=== PATIENT | male | born 1955 | race Caucasian/White ===

== ENCOUNTER → 2016-10-31 | Outpatient (CLI) | payer OTHER ==
--- NOTE | 2016-10-31 15:59 | CONS ---
DATE OF CONSULTATION: 10/31/2016 This patient has no primary doctor at this time. He is a 61-year-old gentleman who has been evaluated in the sleep center for his sleep problems. HISTORY OF PRESENT ILLNESS/SLEEP-WAKE EVALUATION: Patient has had sleep problems for many years. He has any difficulties falling asleep, and also he wakes up from sleep and feels sleepy during the day. His usual sleep schedule varies from 9 p.m. to 1 a.m. for falling asleep, and he gets up between 3 a.m. and 6 a.m. No complaints of his bedroom environment. Sometimes he may have pain. No TV in bedroom. He usually sleeps on the side or stomach position. He wakes up from sleep usually once with nocturia and then has difficulty falling asleep again. He has dreams, usually in the second part of the night. No history of sleep paralysis. He has positive history of snoring in the past. At present he sleeps by himself, so no clear information. [place] Sleepiness Scale increased to 10. Past medical history is positive for: 1. Diabetes. 2. Hypertension. 3. Hyperlipidemia. 4. Gout. PAST SURGICAL HISTORY: 1. Surgery for polyps in the nose. 2. Uvulectomy. 3. Tonsillectomy. MEDICATIONS: 1. Metformin. 2. Invokana. 3. Victoza. 4. Glimepiride. 5. ( ) 6. Atenolol. 7. Aspirin. 8. Simvastatin. 9. Allopurinol. SOCIAL HISTORY: Positive for smoking half pack a day for about 20 years; quit in 1993. Alcohol consumption rarely. REVIEW OF SYSTEMS: Difficulties initiating sleep. Awakenings from sleep. Losing weight for last 6 months from about 275 pounds down to 259 pounds. No fevers. No double vision. No recent chest pain. No shortness of breath. No abdominal pain. No bleeding episodes. No blood in urine. No seizure episodes. FAMILY HISTORY: Hypertension, heart problems, hyperlipidemia, asthma, cancer, diabetes, nasal polyps, thyroid problems, anemia. PHYSICAL EXAMINATION: GENERAL: A pleasant 61-year-old gentleman without distress. VITAL SIGNS: BP 127/90, HR 66, RR 16. Height 5 feet 6-1/2 inches. Weight 259. BMI 41.1. Neck 16 inches in circumference. Temperature 98.4. Oxygen saturation at room air 95%. HEENT: PERRLA, EOMI. Evaluation of oropharynx showed tongue protrudes midline; extremely low position of soft palate. Mallampati IV. Restriction of nasal breathing bilaterally. NECK: Supple. No JVD. Thyroid is not palpable. LUNGS: Clear to percussion and to auscultation. Good air exchange. No wheezing or rhonchi. HEART: S1, S2 regular. No murmurs, gallops or rubs. ABDOMEN: Obese. EXTREMITIES: No clubbing or cyanosis. CROSS TIE CUTTER: Awake, alert, and oriented x3. Cranial nerves 2 to 7 intact. There is no fasciculation or atrophy noted. No focal deficits observed. IMPRESSION: 1. Awakenings from sleep, history of snoring in the past. No clear information about snoring at the present time. Extremely low position of soft palate, awakenings from sleep with nocturia, sleepiness during the day. [place] Sleepiness Scale 10. Obstructive sleep apnea/hypopnea syndrome. 2. Difficulties initiating sleep; psychophysiological insomnia. 3. Obesity; body mass index 41.1. 4. Hypertension. 5. Diabetes mellitus. 6. Hyperlipidemia. 7. Gout. 8. Status post tonsillectomy. 9. Status post nasal polypectomy. 10. Status post uvulectomy. PLAN: 1. Polysomnography for evaluation of patient's breathing during sleep. 2. CPAP/BiPAP titration if sleep study confirms obstructive sleep apnea-hypopnea syndrome. 3. Preferable position during sleep on the side. 4. No driving if patient feels any sleepiness. Patient is aware of civil and criminal liability for unsafe driving. 5. I will see patient for follow-up visit to explain results of the testing and following plan. 6. I discussed with the patient psychological techniques for treatment of insomnia, including stimulus control, paradoxical intention, worry time, no watching clock during the night. I recommended for him additional literature about insomnia. Sincerely, Robert St MD, PhD, FAASM. Diplomat of [employer], Sleep Medicine Board by [employer] Taxi Proprietor of [facility] [place]
== END | disposition home or self-care (01) ==
LOC: SLEEP 13:13
PROVIDERS: ATTEND Internal Medicine
DX: G47.33 Obstructive sleep apnea (adult) (pediatric) (principal); F51.04 Psychophysiologic insomnia; E66.9 Obesity, unspecified; Z68.41 Body mass index [BMI] 40.0-44.9, adult; I10 Essential (primary) hypertension; E11.9 Type 2 diabetes mellitus without complications; E78.5 Hyperlipidemia, unspecified; M10.9 Gout, unspecified; Z98.890 Other specified postprocedural states; Z87.891 Personal history of nicotine dependence
CPT/HCPCS: 99211

== ENCOUNTER → 2017-03-27 | Outpatient (CLI) | payer OTHER ==
--- NOTE | 2017-03-27 14:35 | PN ---
DATE OF SERVICE: 03/27/2017 A 61-year-old gentleman who has been followed in the Sleep Center for treatment of obstructive sleep apnea-hypopnea syndrome. Recently patient had diagnostic sleep test and titration, and I discussed the results of his sleep studies with patient in detail. He was started on treatment with CPAP and he brought his CPAP unit with him today. He is able to use CPAP equipment but about half of the days because he does not feel comfortable with his full-face mas. There is a leak from the mask to the eyes area and patient does not like it. I checked patient's CPAP unit. CPAP pressure is 10 cm of water. Usage for more than 4 hours it nights. Apnea-hypopnea index reading is 8. Leak is 37 L/min. [place] sleepiness scale 3. MEDICATIONS: Metformin, Invokana, Victoza, glimepiride, atenolol, simvastatin, allopurinol. During physical exam, patient in no distress. BP 119/71, HR 60, RR 16. Weight 257.8. Temp 98.2. Oxygen saturation at room air 97%. OROPHARYNX: Moderately low position of soft palate. ABDOMEN: Obese. HEENT: IRAM, EOMI, Evaluation of the oropharynx showed tongue protrudes midline. NECK: Supple. No JVD, Thyroid is not palpable. LUNGS: Clear to percussion and to auscultation. Good air exchange. No wheezing or rhonchi. HEART: S1, S2 regular. No murmurs, gallops, or rubs. LEAD SIMULATION MODELING ENGINEER: Awake, alert, and oriented x3. Cranial nerves 2 to 7 intact. There is no fasciculation or atrophy noted. No focal deficits observed. IMPRESSION: 1. Moderate obstructive sleep apnea-hypopnea syndrome. Apnea-hypopnea index 21.4 with oxygen desaturation to 69%, improved with CPAP at 10 cm of water. Patient has significant leak from his full-face mask. 2. Hypertension. 3. Diabetes mellitus. 4. Hyperlipidemia. 5. Gout. 6. Status post uvulectomy and polypectomy from the nose in the past. 7. Patient continued to have restriction of the nasal breathing at the present time, which also creates problems with the usage of the CPAP. PLAN: 1. I increased pressure in his CPAP unit up to 11 cm of water. 2. We will try to fit patient with [place] full-face mask which goes to the nose and subsequently cannot leak to the eye area. 3. Losing weight. 4. Continued to use CPAP equipment every night for the whole night. 5. No driving if feeling any sleepiness. Thank you very much for allowing me to participate in the management of your patient. Sincerely, Robert St MD, PhD, FAASM Diplomat of [place] [employer], Sleep Medicine Board by [place] Lighting Adviser of [facility] [place]
== END ==
LOC: SLEEP 13:15
PROVIDERS: ATTEND Internal Medicine
DX: G47.33 Obstructive sleep apnea (adult) (pediatric) (principal); E78.5 Hyperlipidemia, unspecified; M10.9 Gout, unspecified; E11.9 Type 2 diabetes mellitus without complications; I10 Essential (primary) hypertension; Z98.890 Other specified postprocedural states; Z79.899 Other long term (current) drug therapy

== ENCOUNTER 2019-03-15 06:24 | Day surgery (SDC) | payer OTHER ==
[2019-03-10 14:21] VITALS: BMI 43.0
[~2019-03-15 06:24] MED LIST: LACTATED RINGERS 1,000 ML IV SCH
[2019-03-15] MEDS ORDERED: SODIUM CHLORIDE 0.9% 1,000 ML IV SCH (06:25)
[2019-03-15 07:09] LABS: Glucose,Whole Blood 125 mg/dL (75-99)
[2019-03-15 07:12] VITALS: TEMP 99
[2019-03-15] MEDS ORDERED: PROPOFOL 10 MG/ML 20 ML VIAL IV ONE (07:25)
[2019-03-15] MEDS ORDERED: SODIUM CHLORIDE 0.9% 500 ML 500 ML IV ONE (07:32)
[2019-03-15] MEDS ORDERED: BENZOCAINE SPRAY 1 CAN MUCOUS MEM ONE (07:40)
[2019-03-15 08:41] VITALS: RESP 18
[2019-03-15 08:54] VITALS: PULSE 62
--- NOTE | 2019-03-15 09:19 | ECHOT ---
TRANSESOPHAGEAL ECHOCARDIOGRAM DATE OF SERVICE: March 15, 2019 PERFORMING PHYSICIAN: Cosme Khalil MD, nuisance wildlife control operator. PROCEDURE PERFORMED: Transesophageal echocardiogram. INDICATION: This is a 63-year-old gentleman with history of paroxysmal atrial fibrillation, who was brought today to undergo cardioversion. COMPLICATION: None. LEVEL OF SEDATION: Deep sedation was performed with propofol with WASTE COTTON CLEANER and anesthesiologist in the room. PROCEDURE DESCRIPTION: After obtaining an informed consent, explaining the procedure, benefits, risks, complications and alternatives, the patient was brought to the transesophageal echocardiogram suite. A pulse oximetry and heart rate monitors were attached to the patient prior to the procedure. The patient's throat was sprayed using lidocaine locally. Following that, the patient was turned into left lateral position. A bite guard was placed and the patient was then sedated with the above doses of Versed and fentanyl in divided doses. Following that, the transesophageal echocardiogram probe was advanced through the bite guard into the mid esophagus where 2-D echocardiogram images as well as color Doppler images of various cardiac structures were obtained. We evaluated the interatrial septum using 2-D echocardiogram, color Doppler, and contrast study. The procedure was completed. There were no complications. FINDINGS: The left ventricular dimension appeared to be within normal limits. The left ventricular systolic function is mildly impaired with EF of 45%. The left atrium appeared to be mildly dilated. Left atrial appendage appeared to be free from any thrombus. The interatrial septum appeared to be intact without any evidence of shunt. The aortic valve is trileaflet valve without stenosis or regurgitation. The mitral valve seems to be mildly thickened with mild to moderate MR. There was mild to moderate tricuspid regurgitation seen. The aortic root appeared to be within normal limits. CONCLUSION: 1. Intact interatrial septum without any evidence of shunt. 2. Normal left atrial appendage without any evidence of thrombus. 3. No evidence of any intracardiac thrombus seen. 4. Mildly impaired left ventricular function with ejection fraction of 45%. 5. Mild left atrial dilatation. 6. Normal right ventricular dimension and systolic function. 7. Trileaflet aortic valve without stenosis or regurgitation. 8. Thickened mitral valve leaflets with mild to moderate mitral regurgitation. 9. Mild to moderate tricuspid regurgitation. 10.Normal aortic root dimension. 11.No evidence of pericardial effusion. MMODL / IJN: [id number] /
--- NOTE | 2019-03-15 09:25 | CE ---
CARDIAC ELECTROPHYSIOLOGY REPORT DATE OF SERVICE: March 15, 2019 PERFORMING PHYSICIAN: Cosme Khalil MD. PROCEDURE PERFORMED: Cardioversion. INDICATION: Atrial fibrillation. PROCEDURE DESCRIPTION: After transesophageal echocardiogram was performed, and left atrial appendage intracardiac thrombus were ruled out we pursued cardioversion with the patient. Converted from atrial fibrillation to normal sinus mechanism using 200 joules on first attempt. CONCLUSION: Successful cardioversion of atrial fibrillation to normal sinus mechanism using 200 joules on first attempt. MMODL / IJN: [id number] /
[2019-03-15 09:28] VITALS: BP 142/82
== END 2019-03-15 09:35 | disposition home or self-care (01) ==
LOC: CATHCVL 06:24
PROVIDERS: ATTEND Internal Medicine Interventional Cardiology
DX: I48.1 Persistent atrial fibrillation (principal); I08.1 Rheumatic disorders of both mitral and tricuspid valves; I12.9 Hypertensive chronic kidney disease with stage 1 through stage 4 chronic kidney disease, or unspecified chronic kidney disease; E11.22 Type 2 diabetes mellitus with diabetic chronic kidney disease; N18.9 Chronic kidney disease, unspecified; I25.10 Atherosclerotic heart disease of native coronary artery without angina pectoris; Z95.5 Presence of coronary angioplasty implant and graft; E78.5 Hyperlipidemia, unspecified; Z82.49 Family history of ischemic heart disease and other diseases of the circulatory system; F17.210 Nicotine dependence, cigarettes, uncomplicated; Z79.84 Long term (current) use of oral hypoglycemic drugs; Z79.82 Long term (current) use of aspirin; Z79.899 Other long term (current) drug therapy; Z91.041 Radiographic dye allergy status
CPT/HCPCS: 93312; 93320; 93325; 92960; J2704

== ENCOUNTER → 2019-07-12 | Outpatient (CLI) | payer OTHER ==
--- NOTE | 2019-07-12 11:26 | XR ---
EXAMINATION TYPE: XR femur LT, XR Hip Complete LT DATE OF EXAM: 07/12/2019 CLINICAL HISTORY: Left hip pain for 2 years with no known injury TECHNIQUE: AP and frogleg views of the left hip are obtained. 2 views of the left femur were also ob tained. COMPARISON: None. FINDINGS: There is no acute fracture/dislocation evident in the left hip. The joint space in the le ft hip appears aligned. Chondrocalcinosis is seen of the medial and lateral compartment of the left k nee. There is mild medial compartment joint space narrowing and very small tricompartmental osteophyt es. There is mild acetabular roof sclerosis and small marginal osteophytes of the left hip. The overl abhi soft tissue appears unremarkable. IMPRESSION: There is no acute fracture or dislocation in the left hip. Mild tricompartmental arthros is of the left knee and left femoral acetabular arthropathy. Additional early chondrocalcinosis is se en of the medial lateral left knee which can be seen in multiple arthropathies.
== END | disposition home or self-care (01) ==
LOC: LABWHC1 10:28
PROVIDERS: ATTEND Family Medicine
DX: M16.12 Unilateral primary osteoarthritis, left hip (principal); M17.12 Unilateral primary osteoarthritis, left knee; M11.262 Other chondrocalcinosis, left knee
CPT/HCPCS: 73502

== ENCOUNTER 2019-07-26 10:15 | Inpatient (IN) | payer OTHER ==
[2019-07-26 11:59] LABS: Glucose,Whole Blood 143 mg/dL (75-99)
[2019-07-26] MEDS ORDERED: ALPRAZolam 0.25 MG TAB PO PRN (12:37)
[2019-07-26] MEDS ORDERED: ACETAMINOPHEN TAB 325 MG TAB PO PRN (12:37)
[2019-07-26 12:43] LABS: Basophils # (A) 0.1 k/uL (0-0.2); Basophils % (A) 1 %; Eosinophils # (A) 0.3 k/uL (0-0.7); Eosinophils % (A) 5 %; HCT 44.2 % (39.0-53.0); HGB 14.1 gm/dL (13.0-17.5); Lymphocytes # (A) 1.8 k/uL (1.0-4.8); Lymphocytes % (A) 28 %; MCH 29.4 pg (25.0-35.0); MCHC 31.9 g/dL (31.0-37.0); MCV 92.1 fL (80.0-100.0); Mean Platelet Volume 7.1; Monocytes # (A) 0.3 k/uL (0-1.0); Monocytes % (A) 5 %; Neutrophils # (A) 3.7 k/uL (1.3-7.7); Neutrophils % (A) 58 %; Platelet Count 155 k/uL (150-450); RBC 4.79 m/uL (4.30-5.90); RDW 15.3 % (11.5-15.5); WBC 6.4 k/uL (3.8-10.6)
[2019-07-26 12:52] LABS: Calcium 10.2 mg/dL (8.4-10.2); Potassium 4.1 mmol/L (3.5-5.1)
[2019-07-26 13:05] VITALS: BMI 40.1
[2019-07-26] MEDS: predniSONE 20 MG TAB PO SCH ×2 (13:11→20:01)
[2019-07-26] MEDS: MAGNESIUM OXIDE 400 MG TAB PO SCH (13:11)
[2019-07-26] MEDS ORDERED: MAGNESIUM SULFATE-D5W PMX 1 GM in DEXTROSE/WATER 1 100ML.BAG IVPB PRN (16:30)
--- NOTE | 2019-07-26 16:51 | P.HPCAR ---
History of Present Illness This is Tori Kent PA-C dictating an H&P on this patient The patient was interviewed and examined by me as well as by Dr. Urias Case discussed with Dr. Urias and he agrees with the plan of care IMPRESSION / ASSESSMENT: Persistent symptomatic atrial fibrillation, failed to maintain sinus rhythm after and electrical cardioversion CAD status post stenting Diabetes Hypertension Recent echo showing mildly reduced LV systolic function PLAN: Detailed discussion with the patient regarding his treatment plan Discussion with patient regarding side effects and medication interactions with dofetilide Discussed all of his [id number] medications as well as his when necessary medications Explained to him that it is dangerous for him to take trazadone with dofetilide and he is not to take it anymore Will initiate dofetilide 250 g at 6 PM with an EKG to follow at 9 PM Proceed with cryoablation tomorrow morning Continue his daily BMPs and magnesium He is appropriately anticoagulated with Xarelto, continue anticoagulation HPI Patient is a 64-year-old male with a past medical history of persistent symptomatic atrial fibrillation, CAD status post stenting, diabetes, and hypertension who presents for evaluation and management of his atrial fibrillation. Patient has had atrial fibrillation with symptoms of fatigue and palpitations for over a year. He remains symptomatic despite good rate control. He has undergone electrical cardioversion in the past and his symptoms resolved and energy improved but then he went back into A. fib after a few days. Recent echocardiogram shows mildly reduced LV systolic function. Patient seen and examined sitting at the side of the bed. Denies any chest pain, shortness of breath, orthopnea or PND. No dizziness lightheadedness or syncope. No recent infections fevers or chills. ROS: No fevers, chills or rigors, no cough, phlegm or expectoration, no nausea, vomiting or diarrhea, no hematuria, dysuria, no musculoskeletal complaints, no strokes or seizures, no skin lesions. EXAMINATION: Temperature 98.4F, pulse 81, respirations 16, blood pressure 137/84, oxygen saturation 98% on room air Patient seen and examined sitting comfortably in bed, in no acute distress Lungs are clear to auscultation bilaterally, no wheezing rhonchi or crackles Heart is irregular, no murmurs noted No elevated JVD No lower extremity edema Abdomen soft REVIEW OF LABS, ECG & MEDICAL DATA EKG today shows atrial fibrillation with controlled ventricular response, absolute QT 360-380 ms WBC 6.4, hemoglobin 14.1, platelets 155, potassium 4.1, BUN 26, creatinine 1.14, magnesium 2.0 TSH within normal limits at 2.29 Physical Exam Vitals: Vital Signs Temp Pulse Resp BP Pulse Ox 07/26/19 15:50 98.4 F 81 16 137/84 98 07/26/19 10:20 98.4 F 90 16 137/83 97 Intake and Output 07/26/19 07/26/19 07/26/19 06:59 14:59 22:59 Other: Weight 112.7 kg Past Medical History Past Medical History: Atrial Fibrillation, Coronary Artery Disease (CAD), Chest Pain / Angina, Diabetes Mellitus, Hyperlipidemia, Renal Disease, Skin Disorder Additional Past Medical History / Comment(s): occular migraines, gout, eczema, dx with stage III kidney failure, tinnitus, fungal infection in groin area, pt refusing pictures History of Any Multi-Drug Resistant Organisms: None Reported Past Surgical History: Heart Catheterization With Stent, Orthopedic Surgery, Tonsillectomy Additional Past Surgical History / Comment(s): two cardiac stents, rt foot bunionectomy, rt knee arthroscopy, surgery to remove uvula Past Anesthesia/Blood Transfusion Reactions: Motion Sickness Date of Last Stent Placement:: 2005 Past Psychological History: Anxiety Smoking Status: Former smoker Past Alcohol Use History: Occasional Additional Past Alcohol Use History / Comment(s): quit smoking 1993, started 1973 Past Drug Use History: None Reported - Past Family History Mother Family Medical History: Unable to Obtain Physical Examination Vital Signs Temp Pulse Resp BP Pulse Ox 07/26/19 15:50 98.4 F 81 16 137/84 98 07/26/19 10:20 98.4 F 90 16 137/83 97 Intake and Output 07/26/19 07/26/19 07/26/19 06:59 14:59 22:59 Other: Weight 112.7 kg Results 07/26/19 12:03 07/26/19 12:03 CBC 07/26/19 Range/Units 12:03 WBC 6.4 (3.8-10.6) k/uL RBC 4.79 (4.30-5.90) m/uL Hgb 14.1 (13.0-17.5) gm/dL Hct 44.2 (39.0-53.0) % Plt Count 155 (150-450) k/uL Comprehensive Metabolic Panel 07/26/19 Range/Units 12:03 Sodium 138 (137-145) mmol/L Potassium 4.1 (3.5-5.1) mmol/L Chloride 100 (98-107) mmol/L Carbon Dioxide 26 (22-30) mmol/L BUN 26 H (9-20) mg/dL Creatinine 1.14 (0.66-1.25) mg/dL Glucose 134 H (74-99) mg/dL Calcium 10.2 (8.4-10.2) mg/dL Current Medications Generic Name Dose Route Start Last Admin Trade Name Freq PRN Reason Stop Dose Admin Acetaminophen 650 mg 07/26/19 12:37 Tylenol Tab PO Q6HR PRN Fever and/ or Mild Pain Allopurinol 300 mg 07/27/19 09:00 Zyloprim PO DAILY SEBASTIAN Alprazolam 0.25 mg 07/26/19 12:37 Xanax PO BID PRN Anxiety Atenolol 50 mg 07/27/19 09:00 Tenormin PO DAILY SEBASTIAN Atorvastatin Calcium 20 mg 07/26/19 21:00 Lipitor PO HS SEBASTIAN Diphenhydramine HCl 25 mg 07/26/19 21:00 Benadryl PO HS SEBASTIAN Diphenhydramine HCl 25 mg 07/27/19 12:00 Benadryl IVP 07/27/19 12:01 ONCE ONE Dofetilide 250 mcg 07/26/19 18:00 Tikosyn PO 07/26/19 18:01 ONCE ONE Glimepiride 2 mg 07/27/19 07:30 Amaryl PO AC-BRKFST SEBASTIAN Sodium Chloride 1,000 mls @ 20 mls/hr 07/26/19 11:45 Saline 0.9% IV .Q24H SEBASTIAN Magnesium Sulfate/Dextrose 1 100 mls @ 100 mls/hr 07/26/19 16:30 gm/ IV Solution IVPB 07/27/19 16:31 Q1H PRN See comments Magnesium Oxide 400 mg 07/26/19 11:00 07/26/19 13:11 Mag-Ox PO 400 mg DAILY SEBASTIAN Administration Methylprednisolone Sodium Succinate 125 mg 07/27/19 12:00 Solu-Medrol IV 07/27/19 12:01 ONCE ONE Nystatin 1 applic 07/26/19 21:00 Mycostatin Oint TOPICAL BID [facility] Prednisone 20 mg 07/26/19 11:00 07/26/19 13:11 PO 20 mg BID [facility] Administration Rivaroxaban 20 mg 07/27/19 07:30 Xarelto PO W/BRKFST SE[facility]IAN Tamsulosin HCl 0.4 mg 07/27/19 08:30 Flomax PO PC-BRKFST [facility] Terbinafine HCl 1 applic 07/26/19 21:00 Lamisil Cream TOPICAL BID [facility] Triamcinolone Acetonide 1 applic 07/26/19 21:00 Kenalog TOPICAL BID [facility] Valsartan 160 mg 07/27/19 09:00 Diovan PO DAILY [facility] Zolpidem Tartrate 5 mg 07/26/19 12:36 Ambien PO HS PRN Insomnia Intake and Output 07/26/19 07/26/19 07/26/19 06:59 14:59 22:59 Other: Weight 112.7 kg Patient Weight 07/27/19 06:59 Weight 112.7 kg 07/26/19 12:03 07/26/19 12:03
[2019-07-26 17:04] LABS: Glucose,Whole Blood 144 mg/dL (75-99)
[2019-07-26] MEDS: SODIUM CHLORIDE 0.9% 1,000 ML IV SCH (17:58)
[2019-07-26] MEDS ORDERED: DOFETILIDE 250 MCG CAP PO ONE (18:00)
[2019-07-26 19:57] LABS: Glucose,Whole Blood 148 mg/dL (75-99)
[2019-07-26] MEDS: TERBINAFINE 1% CREAM 15 GM TUBE TOPICAL SCH (19:57)
[2019-07-26] MEDS: TRIAMCINOLONE 0.1% CREAM 80 GM TUBE TOPICAL SCH (19:57)
[2019-07-26] MEDS: ATORVASTATIN 20 MG TAB PO SCH (19:57)
[2019-07-26] MEDS: NYSTATIN 100,000 UNIT/GM OINT 30 GM TUBE TOPICAL SCH (19:57)
[2019-07-26] MEDS ORDERED: APIXABAN 5 MG TAB PO SCH (21:00)
[2019-07-26] MEDS: diphenhydrAMINE 25 MG CAP PO SCH (22:26)
[2019-07-27 05:59] LABS: Glucose,Whole Blood 136 mg/dL (75-99)
[2019-07-27] MEDS: RIVAROXABAN 20 MG TAB PO SCH (06:00)
[2019-07-27] MEDS ORDERED: DOFETILIDE 250 MCG CAP PO ONE (06:00)
[2019-07-27] MEDS: ATENOLOL 50 MG TAB PO SCH (08:54)
[2019-07-27] MEDS: VALSARTAN 160 MG TAB PO SCH (08:54)
[2019-07-27] MEDS: NYSTATIN 100,000 UNIT/GM OINT 30 GM TUBE TOPICAL SCH ×2 (08:54→21:10)
[2019-07-27] MEDS: predniSONE 20 MG TAB PO SCH ×2 (08:54→21:04)
[2019-07-27] MEDS: MAGNESIUM OXIDE 400 MG TAB PO SCH ×2 (08:54→21:05)
[2019-07-27] MEDS: TRIAMCINOLONE 0.1% CREAM 80 GM TUBE TOPICAL SCH ×2 (08:54→21:03)
[2019-07-27] MEDS: TERBINAFINE 1% CREAM 15 GM TUBE TOPICAL SCH ×2 (08:54→21:03)
[2019-07-27] MEDS: ALLOPURINOL 300 MG TAB PO SCH (08:54)
[2019-07-27] MEDS: TAMSULOSIN 0.4 MG CAP.ER.24H PO SCH (08:54)
[2019-07-27 09:11] LABS: African American GFR (CKD) >90 (>60 ml/min/1.73 sqM); Anion Gap 11 mmol/L; Blood Urea Nitrogen 19 mg/dL (9-20); Calcium 10.1 mg/dL (8.4-10.2); Carbon Dioxide 27 mmol/L (22-30); Chloride 101 mmol/L (98-107); Glucose 111 mg/dL (74-99); Magnesium 1.9 mg/dL (1.6-2.3); Potassium 4.1 mmol/L (3.5-5.1); Sodium 139 mmol/L (137-145)
[2019-07-27] MEDS: SODIUM CHLORIDE 0.9% 1,000 ML IV SCH (11:24)
[2019-07-27] MEDS ORDERED: diphenhydrAMINE 50 MG/ML 1 ML VIAL IVP ONE (12:00)
[2019-07-27] MEDS ORDERED: methylPREDNISolone SOD SUCCI 125 MG/2 ML VIAL IV ONE (12:00)
--- NOTE | 2019-07-27 12:35 | P.PN ---
Subjective This is Tori Kent PA-C dictating a progress note on this patient The patient was interviewed and examined by me as well as by Dr. Urias Case discussed with Dr. Urias and he agrees with the plan of care IMPRESSION / ASSESSMENT: Symptomatic persistent atrial fibrillation, currently in sinus rhythm on dofetilide 250 g twice a day CAD status post stenting Diabetes Hypertension PLAN: He is scheduled for an A. fib ablation today Increase magnesium to 400 mg twice daily Continue dofetilide 250 g twice a day Continue to monitor EKGs for prolonged QT Continue to monitor telemetry Continue to monitor daily BMPs and magnesium HPI/interval history Patient is a 64-year-old male with a past medical history significant for persistent symptomatic persistent atrial fibrillation, CAD status post stenting, diabetes and hypertension who presented for management of atrial fibrillation. Last night we started him on dofetilide 250 g and he converted to sinus rhythm. Subsequent EKG showed sinus mechanism with absolute QT around 400 seconds. This morning he received a second dose of dofetilide 250 g. Follow-up EKG showed sinus mechanism, rate 62, Absolute QT 440 ms. Patient seen and examined sitting up in his chair. Complains that he did not sleep well last night. Has not noticed much of a difference in his symptoms now that he is in sinus rhythm however he has not exerted himself. Denies palpitations, chest pain or sh ortness of breath. EXAMINATION Temperature 98.2F, pulse 62, respirations 16, blood pressure 145/90, oxygen saturation 99% on room air Patient seen and examined sitting in his chair, no acute distress Lungs are clear to auscultation bilaterally Heart is regular, normal S1-S2, no murmurs noted No elevated JVD No lower extremity edema REVIEW OF LABS, ECG Potassium 4.1, BUN 19, creatinine 0.87, magnesium 1.9 TSH within normal limits at 2.29 Objective - Vital Signs Vital signs: Vital Signs Temp 98.2 F 07/27/19 08:00 Pulse 62 07/27/19 08:00 Resp 16 07/27/19 08:00 BP 145/90 07/27/19 08:00 Pulse Ox 99 07/27/19 08:00 Intake & Output 07/26/19 07/27/19 07/27/19 18:59 06:59 18:59 Intake Total 240 Output Total 800 Balance 240 -800 Weight 112.7 kg 110.4 kg Intake: Oral 240 Output: Urine 800 Other: # Voids 2 - Labs CBC & Chem 7: 07/26/19 12:03 07/27/19 08:38 Labs: Abnormal Lab Results - Last 24 Hours (Table) 07/26/19 07/26/19 07/26/19 Range/Units 12:03 16:52 19:55 BUN 26 H (9-20) mg/dL Glucose 134 H (74-99) mg/dL POC Glucose (mg/dL) 144 H 148 H (75-99) mg/dL 07/27/19 07/27/19 Range/Units 05:57 08:38 BUN (9-20) mg/dL Glucose 111 H (74-99) mg/dL POC Glucose (mg/dL) 136 H (75-99) mg/dL
[2019-07-27] MEDS ORDERED: HEPARIN SODIUM,PORCINE 10,000 UNIT/ML 1 ML VIAL ONE (14:15)
[2019-07-27] MEDS ORDERED: MIDAZOLAM 2 MG/2 ML VIAL ONE (14:15)
[2019-07-27] MEDS ORDERED: PROPOFOL 10 MG/ML 20 ML VIAL IV ONE (14:15)
[2019-07-27] MEDS ORDERED: PROTAMINE SULFATE 10 MG/ML 5 ML VIAL IV ONE (14:15)
[2019-07-27] MEDS ORDERED: IV FLUID CONTINUATION 400 ML IV ONE (14:15)
[2019-07-27] MEDS ORDERED: fentaNYL (PF) 50 MCG/ML 2 ML AMP ONE (14:15)
[2019-07-27] MEDS ORDERED: diphenhydrAMINE 50 MG/ML 1 ML VIAL ONE (14:15)
[2019-07-27] MEDS ORDERED: methylPREDNISolone SOD SUCCI 125 MG/2 ML VIAL ONE (14:15)
[2019-07-27] MEDS ORDERED: PHENYLEPHRINE-0.9% NACL SYG 1 MG/10 ML SYRINGE ONE (14:15)
[2019-07-27] MEDS ORDERED: SUCCINYLCHOLINE CHLORIDE 100 MG/5 ML SYR IV ONE (14:15)
[2019-07-27] MEDS ORDERED: LIDOCAINE 1% INJ 10MG/ML (20 ML MDV) ONE (14:49)
[2019-07-27] MEDS ORDERED: LIDOCAINE 1% INJ 10MG/ML (20 ML MDV) SQ ONE (15:01)
[2019-07-27] MEDS ORDERED: HEPARIN SOD,PORK IN 0.45% NACL 25,000 UNIT in 0.45% NACL 1 250ML.BAG IV ONE ×2 (15:16)
[2019-07-27] MEDS: GLIMEPIRIDE 2 MG TAB PO SCH (16:32)
[2019-07-27] MEDS ORDERED: LACTATED RINGERS 1,000 ML IV ONE (17:10)
[2019-07-27] MEDS ORDERED: ACETAMINOPHEN IV (For NPO) 1,000 MG in EMPTY BAG 1 BAG IVPB ONE (17:13)
[2019-07-27] MEDS ORDERED: ACETAMINOPHEN TAB 325 MG TAB PO PRN (17:13)
[2019-07-27] MEDS ORDERED: HYDROcodone/APAP 5-325MG 1 EACH TAB PO PRN (17:13)
[2019-07-27] MEDS ORDERED: IOPAMIDOL-370 100ML BTL INJ ONE (17:23)
--- NOTE | 2019-07-27 17:27 | P.PCN ---
Preoperative Diagnosis: Diagnosis Atrial fibrillation, symptomatic, refractory to therapy Symptomatic Result No left atrial appendage mass seen on intracardiac echo Successful pulmonary vein isolation of all veins using cryo-ablation Complete entrance block in all 4 veins confirmed Transient phrenic nerve paresis during cryoablation of the right inferior pul monary vein which resolved completely. Thereafter right-sided veins were completely isolated without further development of any phrenic nerve paresis Esophageal deflection YES a left-sided esophagus Electrical cardioversion with a synchronized shock across the chest NO Procedure details Patient was brought to the EP lab in a fasting state. Written informed consent was obtained prior to the procedure. Procedure performed under general anesthesia After initial muscle relaxant use, muscle relaxants were not given thereafter in order to assess phrenic nerve during procedure. Patient prepped and draped as per protocol Full cryo-set up with standard preparation of the cryoablation tools done. Femoral Venous access obtained on the right and left groins Venous and arterial Sheaths placed. Diagnostic catheters for the high right atrium, phrenic nerve stimulation and pacing, His bundle, RV and coronary sinus placed Intracardiac echo catheter placed. Long sheath placed in the right atrium Left and right transseptal catheterization performed under intracardiac echo guidance. Intravenous heparin with aCT above 300 Later, catheter positioning and balloon positioning in the left atrium, under intracardiac echo guidance Diagnostic EP study with Coronary sinus pacing and recording Baseline measurements AH interval 67, HV 45 MN 183 ms, QT interval 397 Atrial pacing performed from the high right atrium and the coronary sinus RV pacing Sinus node recovery times at 600 504 100 ms were 886, 929 and 1030 ms respectively AV node Wenckebach block 400 ms VA Wenckebach block greater than 590 ms Atrial extra stimulation from the high right atrium 500\340 AV node ERP Ventricular extra stimulation 500/<250 Transseptal catheterization performed RA pressure 13/6/9 LA pressure 20/8/13 Transseptal catheterization performed with standard sheath. The cryoablation sheath was then placed with an over the wire exchange without any acute complications. All 4 pulmonary veins were isolated in the following sequence: Left superior followed by left inferior followed by right superior followed by right inferior The cryo-ablation balloon was placed at the os of each vein 1.5 mL of IV dye was injected to confirm an occluded vein Goal during cryoablation was to achieve complete occlusion of the pulmonary vein, achieve -30 degrees C at 30 seconds and achieve -40 degrees C at 60 sec onds and a time to effect of less than 60-90 seconds, . If not the balloon was repositioned to obtain this result After completion of Cryoblation with durations from 180-240 seconds, entrance block was confirmed with the Attain circular catheter in a roving fashion around the antrum of the pulmonary veins Phrenic nerve pacing was performed from the SVC, right innominate vein area and diaphragm voltage was monitored. Diaphragmatic contractions were also monitored manually for strength of contraction. Parameter goals for each cryo freeze Complete occlusion of the appropriate vein -30 degrees C by 30 seconds -40 degrees C by 60 seconds Minimum between minus 40-55 degrees C Thaw time greater than 10 seconds Balloon visualized by intracardiac echo The esophagus was intubated. Esophageal Temperature monitoring with a CIRCA catheter formed. Esophageal deflection for hypothermia of the esophagus below 30 degrees C Left superior pulmonary vein Complete isolation, entrance block Left inferior pulmonary vein Complete isolation, entrance block Right superior pulmonary vein, during phrenic nerve pacing Complete isolation, entrance block Right inferior pulmonary vein, during phrenic nerve pacing Complete isolation, entrance block At the end of the procedure the Achieve catheter was once again used to check for entrance block Phrenic nerve stimulation was performed to confirm diaphragmatic stimulation the end of the procedure Cine fluoroscopy was performed at the very end of the procedure to confirm movement of both diaphragms with inspiration and expiration At the end of the procedure the patient was extubated Heparin was reversed Venous sheaths were removed and hemostasis assured Procedures performed (PVI - CRYO Ablation) Diagnostic EP study CS pacing and recording Left and right transseptal catheterization Catheter the mapping of the tachycardia (NOT 3D mapping) Intracardiac echocardiography Pulmonary vein isolation with transseptal and comprehensive EPS, [id number]
[2019-07-27] MEDS: DOFETILIDE 250 MCG CAP PO SCH (19:04)
[2019-07-27 21:03] LABS: Glucose,Whole Blood 162 mg/dL (75-99)
[2019-07-27] MEDS: ATORVASTATIN 20 MG TAB PO SCH (21:04)
[2019-07-27] MEDS: diphenhydrAMINE 25 MG CAP PO SCH (21:04)
[2019-07-28] MEDS ORDERED: DOFETILIDE 250 MCG CAP ONE (06:00)
[2019-07-28] MEDS ORDERED: INSULIN DETEMIR (LEVEMIR) 100 UNIT/ML SYR SQ SCH (07:00)
[2019-07-28 07:18] LABS: Glucose,Whole Blood 152 mg/dL (75-99)
[2019-07-28] MEDS: DOFETILIDE 250 MCG CAP PO SCH ×2 (09:03→17:48)
[2019-07-28] MEDS: predniSONE 20 MG TAB PO SCH ×2 (09:04→19:58)
[2019-07-28] MEDS: GLIMEPIRIDE 2 MG TAB PO SCH (09:04)
[2019-07-28] MEDS: ALLOPURINOL 300 MG TAB PO SCH (09:04)
[2019-07-28] MEDS: TAMSULOSIN 0.4 MG CAP.ER.24H PO SCH (09:04)
[2019-07-28] MEDS: VALSARTAN 160 MG TAB PO SCH (09:04)
[2019-07-28] MEDS: MAGNESIUM OXIDE 400 MG TAB PO SCH ×2 (09:04→19:57)
[2019-07-28] MEDS: RIVAROXABAN 20 MG TAB PO SCH (09:04)
[2019-07-28] MEDS: ATENOLOL 50 MG TAB PO SCH (09:04)
[2019-07-28] MEDS: TERBINAFINE 1% CREAM 15 GM TUBE TOPICAL SCH ×2 (09:05→20:02)
[2019-07-28] MEDS: TRIAMCINOLONE 0.1% CREAM 80 GM TUBE TOPICAL SCH ×2 (09:05→20:02)
[2019-07-28] MEDS: NYSTATIN 100,000 UNIT/GM OINT 30 GM TUBE TOPICAL SCH ×2 (09:05→19:57)
[2019-07-28] MEDS ORDERED: GLIMEPIRIDE 2 MG TAB PO SCH (09:15)
[2019-07-28] MEDS: SODIUM CHLORIDE 0.9% 1,000 ML IV SCH (09:23)
[2019-07-28] MEDS: INSULIN ASPART (NovoLOG) 100 UNIT/ML VIAL SQ SCH ×3 (12:01→19:58)
[2019-07-28 12:05] LABS: Glucose,Whole Blood 111 mg/dL (75-99)
--- NOTE | 2019-07-28 14:55 | P.PN ---
Subjective This is Tori Kent PA-C dictating a progress note on this patient The patient was interviewed and examined by me as well as by Dr. Urias Case discussed with Dr. Urias and he agrees with the plan of care IMPRESSION / ASSESSMENT: Symptomatic persistent atrial fibrillation, currently in sinus rhythm on dofetilide 250 g twice a day CAD status post stenting Diabetes Hypertension, blood pressure was elevated in the 150s systolic over 90s to 100s diastolic overnight but is now well controlled PLAN: obtain BMP and magnesium levels continue magnesium to 400 mg twice daily will monitor blood pressure and make adjustments tomorrow if needed Continue dofetilide 250 g twice a day Continue to monitor EKGs for prolonged QT Continue to monitor telemetry Continue to monitor daily BMPs and magnesium HPI/interval history Patient is a 64-year-old male with a past medical history significant for persistent symptomatic persistent atrial fibrillation, CAD status post stenting, diabetes and hypertension who presented for management of atrial fibrillation. Patient was started on dofetilide 250 g twice daily. He converted after one d ose. Yesterday he underwent pulmonary vein isolation with cryoablation. He has done well postprocedure, no acute events overnight. EKG today shows sinus mechanism, rate 87, absolute QT remains around 440 ms Patient seen and examined sitting up in his chair. Patient has noticed improvement in her symptoms of dizziness. States he has no longer dizzy when he bends down to do something and stands out. No shortness of breath or chest pain. EXAMINATION Temperature 97.9F, pulse 82, respirations 18, blood pressure 119/72, oxygen saturation 98% on room air Patient seen and examined sitting in his chair, no acute distress Lungs are clear to auscultation bilaterally Heart is regular, normal S1-S2, no murmurs noted No elevated JVD No lower extremity edema Bilateral groins minimally tender to palpation, no hematomas or bleeding REVIEW OF LABS, ECG No new labs Today, will obtain BMP and magnesium Objective - Vital Signs Vital signs: Vital Signs Temp 97.9 F 07/28/19 11:59 Pulse 82 07/28/19 11:59 Resp 18 07/28/19 11:59 BP 119/72 07/28/19 11:59 Pulse Ox 98 07/28/19 11:59 Intake & Output 07/27/19 07/28/19 07/28/19 18:59 06:59 18:59 Intake Total 544 360 Output Total 250 Balance 544 -250 360 Intake: IV 424 Intake, IV Titration 120 Amount Sodium Chloride 0.9% 1, 120 000 ml @ 20 mls/hr IV . Q24H SE[facility] Rx#:[id number] Oral 360 Output: Urine 250 Other: # Voids 2 # Bowel Movements 0 - Labs CBC & Chem 7: 07/26/19 12:03 07/27/19 08:38 Labs: Abnormal Lab Results - Last 24 Hours (Table) 07/27/19 07/28/19 07/28/19 Range/Units 21:02 06:32 11:55 POC Glucose (mg/dL) 162 H 152 H 111 H (75-99) mg/dL
[2019-07-28 15:36] LABS: African American GFR (CKD) >90 (>60 ml/min/1.73 sqM); Anion Gap 11 mmol/L; Blood Urea Nitrogen 26 mg/dL (9-20); Calcium 9.5 mg/dL (8.4-10.2); Carbon Dioxide 24 mmol/L (22-30); Chloride 100 mmol/L (98-107); Glucose 151 mg/dL (74-99); Potassium 4.6 mmol/L (3.5-5.1); Sodium 135 mmol/L (137-145)
--- NOTE | 2019-07-28 16:57 | P.CONS ---
History of Present Illness - Reason for Consult Consult date: 07/28/19 Medical management diabetes mellitus Requesting physician: Matt Urias - Chief Complaint Persistent atrial fibrillation, uncontrolled diabetes mellitus - History of Present Illness This is a 64-year-old gentleman with history atrial fibrillation, CAD, chest pain/angina diabetes mellitus, hyperlipidemia, chronic kidney disease stage III, yeast infections of skin, cardiac catheterizations with stents, anxiety, former nicotine dependence, admitted with persistent symptomatic atrial fibrillation, status post electrical cardioversion. Patient was started on Tikosyn, converted to sinus rhythm. Yesterday he underwent ablation, tolerated procedure well. Remains in sinus rhythm. VSS. Afebrile, sodium 135, potassium 4.6, creatinine 1.01, magnesium 2. Denies chest pain, palpitations or shortness of breath. Denies lightheadedness, dizziness or focal deficits. Complains of yeast infection of pannus and bilateral groin areas, maintained on nystatin. Good diet intake with no nausea, vomiting, diarrhea ;consuming 100%. Blood sugars currently up to 150s. Review of Systems ROS Other: All systems not noted in ROS Statement are negative. ROS Statement: Those systems with pertinent positive or pertinent negative responses have been documented in the HPI. Past Medical History Past Medical History: Atrial Fibrillation, Coronary Artery Disease (CAD), Chest Pain / Angina, Diabetes Mellitus, Hyperlipidemia, Renal Disease, Skin Disorder Additional Past Medical History / Comment(s): occular migraines, gout, eczema, dx with stage III kidney failure, tinnitus, fungal infection in groin area, pt refusing pictures History of Any Multi-Drug Resistant Organisms: None Reported Past Surgical History: Heart Catheterization With Stent, Orthopedic Surgery, Tonsillectomy Additional Past Surgical History / Comment(s): two cardiac stents, rt foot bun ionectomy, rt knee arthroscopy, surgery to remove uvula Past Anesthesia/Blood Transfusion Reactions: Motion Sickness Date of Last Stent Placement:: 2005 Past Psychological History: Anxiety Smoking Status: Former smoker Past Alcohol Use History: Occasional Additional Past Alcohol Use History / Comment(s): quit smoking 1993, started 1973 Past Drug Use History: None Reported - Past Family History Mother Family Medical History: Unable to Obtain Medications and Allergies Home Medications Medication Instructions Recorded Confirmed Type Allopurinol [Zyloprim] 300 mg PO HS 03/10/19 07/26/19 History Atorvastatin [Lipitor] 20 mg PO HS 03/10/19 07/26/19 History Glimepiride [Amaryl] 2 mg PO DAILY 03/10/19 07/26/19 History Tamsulosin [Flomax] 0.4 mg PO DAILY 03/10/19 07/26/19 History metFORMIN HCL 1,000 mg PO BID 03/10/19 07/26/19 History ALPRAZolam [Xanax] 0.25 mg PO BID PRN 07/26/19 07/26/19 History Atenolol [Tenormin] 50 mg PO DAILY 07/26/19 07/26/19 History Dulaglutide [Trulicity] 1.5 mg SQ ADDISON 07/26/19 07/26/19 History Fexofenadine HCl [Cecilia Allergy] 180 mg PO DAILY 07/26/19 07/26/19 History Hydrochlorothiazide [Hydrodiuril] 25 mg PO DAILY 07/26/19 07/26/19 History Magnesium 1000mg 1,000 mg PO DAILY 07/26/19 07/26/19 History Manganese 4mg 4 mg PO HS 07/26/19 07/26/19 History Nystatin 1 applic TOPICAL BID 07/26/19 07/26/19 History Rivaroxaban [Xarelto] 20 mg PO DAILY 07/26/19 07/26/19 History Terbinafine 1% Cream [LamISIL] 1 applic TOPICAL BID 07/26/19 07/26/19 History Terbinafine [LamISIL] 250 mg PO DAILY 07/26/19 07/26/19 History Triamcinolone 0.1% Cream [Kenalog 1 applicatio TOPICAL BID 07/26/19 07/26/19 History 0.1% Cream] Valsartan [Diovan] 160 mg PO DAILY 07/26/19 07/26/19 History traZODone HCL [Desyrel] 25 mg PO HS PRN 07/26/19 07/26/19 History Allergies Allergy/AdvReac Type Severity Reaction Status Date / Time adhesive tape Allergy rash/red Verified 07/26/19 11:02 skin Iodinated Contrast Media Allergy Rash/Hives Verified 07/26/19 11:02 [Iodinated Contrast- Oral and IV Dye] latex Allergy red skin Verified 07/26/19 11:02 Physical Exam Vitals: Vital Signs Temp Pulse Pulse Pulse Resp BP Pulse Ox 07/28/19 08:00 97.6 F 91 18 127/79 96 07/27/19 20:58 88 18 158/108 98 07/27/19 18:58 98.1 F 16 156/95 94 L 07/27/19 18:33 85 16 153/98 95 07/27/19 18:20 86 16 158/96 95 07/27/19 18:03 98.3 F 90 14 140/85 95 07/27/19 12:00 98.5 F 70 18 134/88 97 Intake and Output 07/27/19 07/28/19 07/28/19 22:59 06:59 14:59 Intake Total 24 360 Output Total 250 Balance -226 360 Intake: IV 24 Oral 360 Output: Urine 250 Other: # Voids 2 # Bowel Movements 0 PHYSICAL EXAM: VITAL SIGNS: As above GENERAL: Sitting up in chair, no acute distress HEENT: Conjunctivae normal. eyes normal. Oral mucosa moist NECK: No JVD. No thyroid enlargement. No LNs CARDIOVASCULAR: S1, S2 regular.. No murmur RESPIRATION: Breath sounds diminished in the bases. No rhonchi or crackles. No bronchial breathing. ABDOMEN: Soft, nontender . No guarding. no masses palpable. No ascites, No hepatosplenomegaly.Bowel sounds heard. LEGS: No edema. no swelling PSYCHIATRY: Alert and oriented X3, mood and affect normal. NERVOUS SYSTEM: Cranial N 2-12 grossly normal. Moves all 4 limbs. Diffuse weakness No focal deficits. Strength and sensation grossly intact.. Skin: Yeast infection, pink pannus and bilateral groin areas currently with nystatin powder on Joints: No active swelling. No inflammation. Results CBC & Chem 7: 07/26/19 12:03 07/28/19 15:02 Labs: Abnormal Lab Results - Last 24 Hours (Table) 07/27/19 07/28/19 Range/Units 21:02 06:32 POC Glucose (mg/dL) 162 H 152 H (75-99) mg/dL Assessment and Plan Assessment: -Symptomatic persistent atrial fibrillation, status post ablation, on Tikosyn, currently sinus rhythm -Diabetes mellitus, mild hyperglycemia -CAD, history of stenting -Hypertension, controlled -Hyperlipidemia -Chronic kidney disease stage III -Yeast infection, pannus and bilateral groin areas -Anxiety -History of nicotine dependence Plan: Continue on current medication regime ,monitoring and symptomatic treatment. Home diabetic med regime with addition of NovoLog sliding scale. Close monitoring of Accu-Cheks. Patient denies to increase ambulation in hallways. Anticoagulated with Xarelto. Close monitoring of renal function, electrolytes, including magnesium with repeat labs ordered for a.m. follow closely with cardiology. Thank you Dr. Urias for the consult. The impression and plan of care has been dictated as directed. : I performed a history and examination of this patient, discussed the same with the dictator. I agree with the dictator's note ,documented as a scribe. Any additional findings or plans will be noted.
[2019-07-28 17:00] LABS: Glucose,Whole Blood 170 mg/dL (75-99)
[2019-07-28 19:51] LABS: Glucose,Whole Blood 158 mg/dL (75-99)
[2019-07-28] MEDS: diphenhydrAMINE 25 MG CAP PO SCH (19:57)
[2019-07-28] MEDS: ATORVASTATIN 20 MG TAB PO SCH (19:58)
[2019-07-28] MEDS: ZOLPIDEM 5 MG TAB PO PRN (22:08)
[2019-07-29 06:07] LABS: Glucose,Whole Blood 122 mg/dL (75-99)
[2019-07-29] MEDS: DOFETILIDE 250 MCG CAP PO SCH (06:10)
[2019-07-29] MEDS: INSULIN ASPART (NovoLOG) 100 UNIT/ML VIAL SQ SCH ×4 (06:20→21:20)
[2019-07-29] MEDS: GLIMEPIRIDE 2 MG TAB PO SCH (06:48)
[2019-07-29] MEDS: RIVAROXABAN 20 MG TAB PO SCH (06:49)
[2019-07-29 06:55] LABS: African American GFR (CKD) >90 (>60 ml/min/1.73 sqM); Anion Gap 14 mmol/L; Blood Urea Nitrogen 25 mg/dL (9-20); Calcium 9.7 mg/dL (8.4-10.2); Carbon Dioxide 21 mmol/L (22-30); Chloride 104 mmol/L (98-107); Glucose 128 mg/dL (74-99); Magnesium 2.2 mg/dL (1.6-2.3); Potassium 4.4 mmol/L (3.5-5.1); Sodium 139 mmol/L (137-145)
[2019-07-29] MEDS: predniSONE 20 MG TAB PO SCH ×2 (08:37→21:20)
[2019-07-29] MEDS: ALLOPURINOL 300 MG TAB PO SCH (08:37)
[2019-07-29] MEDS: ATENOLOL 50 MG TAB PO SCH (08:37)
[2019-07-29] MEDS: MAGNESIUM OXIDE 400 MG TAB PO SCH ×2 (08:37→21:20)
[2019-07-29] MEDS: VALSARTAN 160 MG TAB PO SCH (08:37)
[2019-07-29] MEDS: NYSTATIN 100,000 UNIT/GM OINT 30 GM TUBE TOPICAL SCH ×2 (08:37→21:22)
[2019-07-29] MEDS: TAMSULOSIN 0.4 MG CAP.ER.24H PO SCH (08:37)
[2019-07-29] MEDS: SODIUM CHLORIDE 0.9% 1,000 ML IV SCH (08:38)
[2019-07-29] MEDS: TERBINAFINE 1% CREAM 15 GM TUBE TOPICAL SCH ×2 (08:38→21:44)
[2019-07-29] MEDS: TRIAMCINOLONE 0.1% CREAM 80 GM TUBE TOPICAL SCH ×2 (08:38→21:22)
--- NOTE | 2019-07-29 09:05 | P.PN ---
Subjective Progress Note Date: 07/29/19 This is a 64-year-old gentleman with history atrial fibrillation, CAD, chest pain/angina diabetes mellitus, hyperlipidemia, chronic kidney disease stage III, yeast infections of skin, cardiac catheterizations with stents, anxiety, former nicotine dependence, admitted with persistent symptomatic atrial fibrillation, status post electrical cardioversion. Patient was started on Tikosyn, converted to sinus rhythm. Yesterday he underwent ablation, tolerated procedure well. Remains in sinus rhythm. VSS. Afebrile, sodium 135, potassium 4.6, creatinine 1.01, magnesium 2. Denies chest pain, palpitations or shortness of breath. Denies lightheadedness, dizziness or focal deficits. Complains of yeast inf ection of pannus and bilateral groin areas, maintained on nystatin. Good diet intake with no nausea, vomiting, diarrhea ;consuming 100%. Blood sugars currently up to 150s. 07/29/2019 ambulating in room. Vital signs stable, telemetry sinus rhythm. Denies chest pain, palpitations or shortness of breath. Denies lightheadedness, dizziness or focal deficits. Blood sugars controlled. Objective - Vital Signs Vital signs: Vital Signs Temp 98 F 07/29/19 04:00 Pulse 87 07/29/19 04:00 Resp 16 07/29/19 04:00 BP 148/93 07/29/19 04:00 Pulse Ox 97 07/29/19 04:00 Intake & Output 07/28/19 07/29/19 07/29/19 18:59 06:59 18:59 Intake Total 360 Balance 360 Weight 110.6 kg Intake: Oral 360 Other: # Voids 1 - Exam VITAL SIGNS: As above GENERAL: Standing at bedside, alert and oriented 3, no acute distress HEENT: Conjunctivae normal. eyes normal. Oral mucosa moist NECK: No JVD. No thyroid enlargement. No LNs CARDIOVASCULAR: S1, S2 regular. No murmur RESPIRATION: Breath sounds diminished in the bases. No rhonchi or crackles. No wheezing. ABDOMEN: Soft, nontender . No guarding. no masses palpable.Bowel sounds heard. LEGS: No edema. no swelling PSYCHIATRY: Alert and oriented X3, mood and affect normal. NERVOUS SYSTEM: Cranial N 2-12 grossly normal. Moves all 4 limbs. No focal deficits. Strength and sensation grossly intact.. Skin: Yeast infection, pink pannus/bilateral groin areas with nystatin powder on - Labs CBC & Chem 7: 07/26/19 12:03 07/29/19 06:02 Labs: Abnormal Lab Results - Last 24 Hours (Table) 07/28/19 07/28/19 07/28/19 Range/Units 11:55 15:02 16:57 Sodium 135 L (137-145) mmol/L Carbon Dioxide (22-30) mmol/L BUN 26 H (9-20) mg/dL Glucose 151 H (74-99) mg/dL POC Glucose (mg/dL) 111 H 170 H (75-99) mg/dL 07/28/19 07/29/19 07/29/19 Range/Units 19:51 06:02 06:06 Sodium (137-145) mmol/L Carbon Dioxide 21 L (22-30) mmol/L BUN 25 H (9-20) mg/dL Glucose 128 H (74-99) mg/dL POC Glucose (mg/dL) 158 H 122 H (75-99) mg/dL Assessment and Plan Assessment: -Symptomatic persistent atrial fibrillation, status post ablation, on Tikosyn, currently sinus rhythm -Diabetes mellitus, mild hyperglycemia -CAD, history of stenting -Hypertension, controlled -Hyperlipidemia -Chronic kidney disease stage III -Yeast infection, pannus and bilateral groin areas -Anxiety -History of nicotine dependence Plan: Continue on current medication regime ,monitoring and symptomatic treatment. Maintain diabetic med regime as ordered yesterday, blood sugars well controlled. Medically cleared for discharge. At discharge continue diabetic med regimen, nystatin powder, nystatin cream. Increase ambulation in hallways. Follow-up with PCP in 1 week . Please do not hesitate to call if further questions or concerns , family medicine signing off .Thank you Dr. Urias for the consult. The impression and plan of care has been dictated as directed. : I performed a history and examination of this patient, discussed the same with the dictator. I agree with the dictator's note ,documented as a scribe. Any additional findings or plans will be noted.
[2019-07-29 11:52] LABS: Glucose,Whole Blood 135 mg/dL (75-99)
[2019-07-29 17:16] LABS: Glucose,Whole Blood 155 mg/dL (75-99)
--- NOTE | 2019-07-29 17:56 | P.PN ---
Subjective Patient is ablating around in the room. No chest discomfort no dizziness lightheadedness or palpitations Rising healed well and no groin pain No chest discomfort Normal heart sounds, regular No JVD Breath sounds are clear no rhonchi no crackles abdomen soft No edema Labs are reviewed potassium 4.4 BUN and creatinine are stable magnesium 2.2 Impression Persistent symptomatic atrial fibrillation Status post a sensation of dofetilide at 250 g twice daily He chemically converted to sinus rhythm after the very first dose of dofetilide So far it QT and will have been stable but slowly his QT interval has been prolonging now to 460 ms which is an increment of 15% from his post conversion QT interval In addition he is having PVCs and ventricular couplets Prolonged QT interval on dofetilide 250 g twice daily Status post cryoablation the pulmonary veins Plan Reduce the dose of dofetilide to 125 g twice daily Follow dofetilide protocol Daily BMP and magnesium Objective - Vital Signs Vital signs: Vital Signs Temp 98.1 F 07/29/19 16:00 Pulse 86 07/29/19 16:00 Resp 20 07/29/19 16:00 BP 149/89 07/29/19 16:00 Pulse Ox 86 L 07/29/19 16:00 Intake & Output 07/28/19 07/29/19 07/29/19 18:59 06:59 18:59 Intake Total 360 600 Balance 360 600 Weight 110.6 kg Intake: Oral 360 600 Other: # Voids 1 3 - Labs CBC & Chem 7: 07/26/19 12:03 07/29/19 06:02 Labs: Abnormal Lab Results - Last 24 Hours (Table) 07/28/19 07/29/19 07/29/19 Range/Units 19:51 06:02 06:06 Carbon Dioxide 21 L (22-30) mmol/L BUN 25 H (9-20) mg/dL Glucose 128 H (74-99) mg/dL POC Glucose (mg/dL) 158 H 122 H (75-99) mg/dL 07/29/19 07/29/19 Range/Units 11:45 17:09 Carbon Dioxide (22-30) mmol/L BUN (9-20) mg/dL Glucose (74-99) mg/dL POC Glucose (mg/dL) 135 H 155 H (75-99) mg/dL
[2019-07-29] MEDS: DOFETILIDE 125 MCG CAP PO SCH (18:04)
[2019-07-29 19:05] LABS: African American GFR (CKD) >90 (>60 ml/min/1.73 sqM); Anion Gap 9 mmol/L; Blood Urea Nitrogen 28 mg/dL (9-20); Calcium 9.9 mg/dL (8.4-10.2); Carbon Dioxide 27 mmol/L (22-30); Chloride 101 mmol/L (98-107); Glucose 112 mg/dL (74-99); Potassium 5.6 mmol/L (3.5-5.1); Sodium 137 mmol/L (137-145)
[2019-07-29] MEDS ORDERED: SODIUM POLYSTYRENE SULFONATE 15 GM/60 ML BOTTLE PO STA (20:44)
[2019-07-29 21:13] LABS: Glucose,Whole Blood 106 mg/dL (75-99)
[2019-07-29] MEDS: diphenhydrAMINE 25 MG CAP PO SCH (21:20)
[2019-07-29] MEDS: metFORMIN 500 MG TAB PO SCH (21:20)
[2019-07-29] MEDS: ATORVASTATIN 20 MG TAB PO SCH (21:20)
[2019-07-29] MEDS: ZOLPIDEM 5 MG TAB PO PRN (23:11)
[2019-07-30] MEDS: GLIMEPIRIDE 2 MG TAB PO SCH (05:59)
[2019-07-30] MEDS: RIVAROXABAN 20 MG TAB PO SCH (05:59)
[2019-07-30] MEDS: DOFETILIDE 125 MCG CAP PO SCH (06:00)
[2019-07-30 06:33] LABS: Glucose,Whole Blood 128 mg/dL (75-99)
[2019-07-30] MEDS: INSULIN ASPART (NovoLOG) 100 UNIT/ML VIAL SQ SCH ×2 (06:40→12:59)
[2019-07-30 07:41] LABS: African American GFR (CKD) >90 (>60 ml/min/1.73 sqM); Anion Gap 10 mmol/L; Blood Urea Nitrogen 23 mg/dL (9-20); Calcium 9.7 mg/dL (8.4-10.2); Carbon Dioxide 25 mmol/L (22-30); Chloride 104 mmol/L (98-107); Glucose 127 mg/dL (74-99); Magnesium 2.1 mg/dL (1.6-2.3); Sodium 139 mmol/L (137-145)
[2019-07-30] MEDS: VALSARTAN 160 MG TAB PO SCH (08:02)
[2019-07-30] MEDS: metFORMIN 500 MG TAB PO SCH (08:02)
[2019-07-30] MEDS: predniSONE 20 MG TAB PO SCH (08:02)
[2019-07-30] MEDS: ATENOLOL 50 MG TAB PO SCH (08:02)
[2019-07-30] MEDS: TAMSULOSIN 0.4 MG CAP.ER.24H PO SCH (08:02)
[2019-07-30] MEDS: TERBINAFINE 1% CREAM 15 GM TUBE TOPICAL SCH (08:03)
[2019-07-30] MEDS: SODIUM CHLORIDE 0.9% 1,000 ML IV SCH (08:03)
[2019-07-30] MEDS: TRIAMCINOLONE 0.1% CREAM 80 GM TUBE TOPICAL SCH (08:03)
[2019-07-30] MEDS: MAGNESIUM OXIDE 400 MG TAB PO SCH (08:03)
[2019-07-30] MEDS: NYSTATIN 100,000 UNIT/GM OINT 30 GM TUBE TOPICAL SCH (08:03)
[2019-07-30] MEDS: ALLOPURINOL 300 MG TAB PO SCH (08:03)
[2019-07-30 10:57] VITALS: RESP 20; TEMP 98.1
[2019-07-30 12:09] VITALS: BP 146/94; PULSE 146
[2019-07-30] MEDS ORDERED: CARVEDILOL 6.25 MG TAB PO SCH (12:15)
[2019-07-30 12:16] LABS: Glucose,Whole Blood 123 mg/dL (75-99)
--- NOTE | 2019-07-30 13:31 | P.PRLE ---
RE: Misha Yap Dear Dr. Perez Mr. Ypa was admitted for management of atrial fibrillation, persistent. He was initiated on Tikosyn and after the second dose he chemically cardio but to sinus rhythm Subsequently there was a termination of the QT interval and we reduced his Tikosyn dose to 125 g twice daily Today his QT interval was about 420 ms In addition he underwent cryoablation of the pulmonary veins successfully and has maintained sinus rhythm His BUN/creatinine has been stable. His magnesium was at the upper limits of normal I have stopped hydrochlorothiazide since this interacts with effort light [address] also asked him to stop trazodone completely He'll follow-up with you and with Dr. Cam as before Thank you for entrusting me with the care of the patient Warm regards Sincerely Matt Urias
--- NOTE | 2019-07-30 13:32 | P.PN ---
Progress Note - Text Please see full dictation by Mona Atkins Add a very detailed discussion about dofetilide with the patient this morning Over 30 minutes was spent explaining the do's and don'ts for dofetilide A full education was provided \ Drug interactions were discussed Patient verbalized an understanding
--- NOTE | 2019-07-30 13:50 | P.DS ---
Providers Date of admission: 07/26/19 10:15 Attending physician: Matt Urias Consults: 07/27/19 17:27 Consult Physician Routine Consulting Provider: Christopher Perez Consult Reason/Comments: diabetes Do you want consulting provider notified?: Yes, Notify in am Primary care physician: Matt Urias [facility] Course: Patient is a 64-year-old male with a past medical history of persistent symptomatic atrial fibrillation, CAD status post stenting, diabetes and hypertension who presented for evaluation and management of atrial fibrillation. He was started on dofetilide 250 g twice daily and converted after the first dose. He underwent a PVI cryoablation. On his fourth day of dofetilide his QT was noted to be lengthened to about 460 ms so his dose of dofetilide was cut back to 125 g twice daily. EKG today shows QT absolute maximum 420 ms. Patient seen and examined sitting up in his chair in his room. States his symptoms of dizziness have resolved. Denies any chest pain or shortness of breath on exertion. He has been walking around in his room. Labs today reveal potassium 5.0, magnesium 2.1, BUN 23, creatinine 0.88 Temperature 98.1F, pulse 73, respirations 20, blood pressure 146/94, oxygen saturation 97% on room air Patient seen and examined sitting up in his chair Lungs are clear to auscultation bilaterally Heart is regular, normal S1-S2, no murmurs No elevated JVD No lower extremity edema Impression Persistent symptomatic atrial fibrillation, status post PVI cryoablation, maintaining sinus rhythm on dofetilide 125 g twice daily CAD status post stenting Diabetes Hypertension, blood pressure has been elevated in the 140s to 150 systolic over 90s diastolic Plan Dr. Urias had a detailed discussion with him regarding medication interactions of with dofetilide All of his questions were answered and he was provided with dofetilide information sheet He is stopping his trazodone, discontinue hydrochlorothiazide secondary to interactions with dofetilide switch from atenolol to carvedilol for blood pressure control Patient will be discharged on dofetilide 125 g twice daily Follow-up in the office within a week Plan - Discharge Summary Discharge Rx Participant: No New Discharge Prescriptions: New Dofetilide [Tikosyn] 125 mcg PO Q12HR #180 cap Carvedilol [Coreg] 6.25 mg PO BID #180 tablet Discontinued Atenolol [Tenormin] 50 mg PO DAILY Hydrochlorothiazide [Hydrodiuril] 25 mg PO DAILY traZODone HCL [Desyrel] 25 mg PO HS PRN PRN Reason: Insomnia No Action Tamsulosin [Flomax] 0.4 mg PO DAILY Atorvastatin [Lipitor] 20 mg PO HS metFORMIN HCL 1,000 mg PO BID Glimepiride [Amaryl] 2 mg PO DAILY Allopurinol [Zyloprim] 300 mg PO HS Triamcinolone 0.1% Cream [Kenalog 0.1% Cream] 1 applicatio TOPICAL BID Terbinafine [LamISIL] 250 mg PO DAILY Terbinafine 1% Cream [LamISIL] 1 applic TOPICAL BID Manganese 4mg 4 mg PO HS Magnesium 1000mg 1,000 mg PO DAILY Rivaroxaban [Xarelto] 20 mg PO DAILY Fexofenadine HCl [Cecilia Allergy] 180 mg PO DAILY Valsartan [Diovan] 160 mg PO DAILY ALPRAZolam [Xanax] 0.25 mg PO BID PRN PRN Reason: Anxiety Nystatin 1 applic TOPICAL BID Dulaglutide [Trulicity] 1.5 mg SQ ADDISON Discharge Medication List Allopurinol [Zyloprim] 300 mg PO HS 03/10/19 [History] Atorvastatin [Lipitor] 20 mg PO HS 03/10/19 [History] Glimepiride [Amaryl] 2 mg PO DAILY 03/10/19 [History] Tamsulosin [Flomax] 0.4 mg PO DAILY 03/10/19 [History] metFORMIN HCL 1,000 mg PO BID 03/10/19 [History] ALPRAZolam [Xanax] 0.25 mg PO BID PRN 07/26/19 [History] Dulaglutide [Trulicity] 1.5 mg SQ ADDISON 07/26/19 [History] Fexofenadine HCl [Cecilia Allergy] 180 mg PO DAILY 07/26/19 [History] Magnesium 1000mg 1,000 mg PO DAILY 07/26/19 [History] Manganese 4mg 4 mg PO HS 07/26/19 [History] Nystatin 1 applic TOPICAL BID 07/26/19 [History] Rivaroxaban [Xarelto] 20 mg PO DAILY 07/26/19 [History] Terbinafine 1% Cream [LamISIL] 1 applic TOPICAL BID 07/26/19 [History] Terbinafine [LamISIL] 250 mg PO DAILY 07/26/19 [History] Triamcinolone 0.1% Cream [Kenalog 0.1% Cream] 1 applicatio TOPICAL BID 07/26/19 [History] Valsartan [Diovan] 160 mg PO DAILY 07/26/19 [History] Carvedilol [Coreg] 6.25 mg PO BID #180 tablet 07/30/19 [Rx] Dofetilide [Tikosyn] 125 mcg PO Q12HR #180 cap 07/30/19 [Rx] Follow up Appointment(s)/Referral(s): Matt Urias MD [Primary Care Provider] - 10/29/19 12:15 pm (3 month follow up.) Cosme Khalil MD [STAFF PHYSICIAN] - 08/05/19 8:45 am () Patient Instructions/Handouts: Cardiac Ablation (DC) Discharge Disposition: HOME SELF-CARE
== END 2019-07-30 15:05 | disposition home or self-care (01) | DRG 274 ==
LOC: 3SCARD 10:15
PROVIDERS: ADMIT Internal Medicine Clinical Cardiac Electrophysiology; ATTEND Internal Medicine Clinical Cardiac Electrophysiology
PROC: 02K83ZZ Map Conduction Mechanism, Percutaneous Approach (ICD-10-PCS; 2019-07-27)
PROC: B246YZZ Ultrasonography of Right and Left Heart using Other Contrast (ICD-10-PCS; 2019-07-27)
PROC: 5A2204Z Restoration of Cardiac Rhythm, Single (ICD-10-PCS; 2019-07-27)
PROC: 4A023FZ Measurement of Cardiac Rhythm, Percutaneous Approach (ICD-10-PCS; principal; 2019-07-27 14:15)
PROC: 02583ZZ Destruction of Conduction Mechanism, Percutaneous Approach (ICD-10-PCS; 2019-07-27 14:15)
PROC: 4A0234Z Measurement of Cardiac Electrical Activity, Percutaneous Approach (ICD-10-PCS; 2019-07-27 14:15)
DX: I48.19 Other persistent atrial fibrillation (principal); Z79.01 Long term (current) use of anticoagulants; B37.2 Candidiasis of skin and nail; E11.22 Type 2 diabetes mellitus with diabetic chronic kidney disease; E11.65 Type 2 diabetes mellitus with hyperglycemia; E78.5 Hyperlipidemia, unspecified; F41.9 Anxiety disorder, unspecified; G47.00 Insomnia, unspecified; I12.9 Hypertensive chronic kidney disease with stage 1 through stage 4 chronic kidney disease, or unspecified chronic kidney disease; I25.10 Atherosclerotic heart disease of native coronary artery without angina pectoris; I49.3 Ventricular premature depolarization; I45.81 Long QT syndrome; T46.2X5A Adverse effect of other antidysrhythmic drugs, initial encounter; N18.3 Chronic kidney disease, stage 3 (moderate); Z79.84 Long term (current) use of oral hypoglycemic drugs; Z79.899 Other long term (current) drug therapy; Z87.891 Personal history of nicotine dependence; Z95.5 Presence of coronary angioplasty implant and graft; G43.809 Other migraine, not intractable, without status migrainosus; Z91.041 Radiographic dye allergy status; Z91.040 Latex allergy status; M10.9 Gout, unspecified; L30.9 Dermatitis, unspecified; Z90.89 Acquired absence of other organs
CPT/HCPCS: 80048; 83735; 84443; 85025; 85347; 93609; 93656; 93662

== ENCOUNTER → 2019-08-13 | Outpatient (CLI) | payer OTHER ==
[2019-08-13 07:41] LABS: Basophils # (A) 0.1 k/uL (0-0.2); Basophils % (A) 2 %; Eosinophils # (A) 0.3 k/uL (0-0.7); Eosinophils % (A) 4 %; HCT 41.7 % (39.0-53.0); HGB 13.8 gm/dL (13.0-17.5); Lymphocytes # (A) 1.2 k/uL (1.0-4.8); Lymphocytes % (A) 21 %; MCH 30.3 pg (25.0-35.0); MCV 91.7 fL (80.0-100.0); Mean Platelet Volume 6.5; Monocytes # (A) 0.4 k/uL (0-1.0); Monocytes % (A) 6 %; Neutrophils # (A) 3.8 k/uL (1.3-7.7); Neutrophils % (A) 64 %; Platelet Count 144 k/uL (150-450); RBC 4.55 m/uL (4.30-5.90); RDW 15.1 % (11.5-15.5); WBC 5.8 k/uL (3.8-10.6)
[2019-08-13 17:46] LABS: % Iron Saturation 38.89 (15.00-50.00); African American GFR (CKD) 91.8 (60.0-200.0); Albumin 4.5 g/dL (3.80-4.90); Albumin/Globulin Ratio 2.37 (1.60-3.17); Anion Gap 8.2 mmol/L (4.00-12.00); Calcium 9.8 mg/dL (8.7-10.3); Carbon Dioxide 26.8 mmol/L (21.6-31.8); Chol/HDL Ratio 2.85; Globulin 1.9 g/dL (1.6-3.3); Magnesium 1.8 mg/dL (1.5-2.4); Phosphorus 3.4 mg/dL (2.4-5.1); Potassium 5.7 mmol/L (3.5-5.5); Total Protein 6.4 g/dL (6.2-8.2); Uric Acid 5.4 mg/dL (3.7-8.7)
[2019-08-13 17:58] LABS: Ferritin 120.8 ng/mL (22.0-322.0)
[2019-08-13 19:08] LABS: Hemoglobin A1C 5.8 % (4.0-6.0)
== END | disposition home or self-care (01) ==
LOC: LABWHC1 06:32
PROVIDERS: ATTEND Internal Medicine Nephrology
DX: E11.65 Type 2 diabetes mellitus with hyperglycemia (principal); N20.0 Calculus of kidney; M10.9 Gout, unspecified; E55.9 Vitamin D deficiency, unspecified; N25.81 Secondary hyperparathyroidism of renal origin; N39.0 Urinary tract infection, site not specified; R80.9 Proteinuria, unspecified; D64.9 Anemia, unspecified
CPT/HCPCS: 36415; 80053; 80061; 82306; 82728; 83036; 83540; 83550; 83735; 83970; 84100; 84443; 84550; 85025

== ENCOUNTER → 2020-02-09 | Outpatient (CLI) | payer OTHER ==
[2020-02-09 15:52] LABS: African American GFR (CKD) 81.8 (60.0-200.0); Anion Gap 12.1 mmol/L (4.00-12.00); BUN/Creat Ratio 20.91 Ratio (12.00-20.00); Calcium 10.1 mg/dL (8.7-10.3); Carbon Dioxide 26.9 mmol/L (21.6-31.8); Magnesium 1.8 mg/dL (1.5-2.4); Non-African American GFR(CKD) 70.6 (60.0-200.0); Potassium 4.6 mmol/L (3.5-5.5)
== END | disposition home or self-care (01) ==
LOC: LABWHC1 08:02
PROVIDERS: ATTEND Nurse Practitioner Adult Health
DX: Z51.81 Encounter for therapeutic drug level monitoring (principal); Z79.899 Other long term (current) drug therapy; I10 Essential (primary) hypertension
CPT/HCPCS: 36415; 80048; 83735

== ENCOUNTER → 2020-05-16 | Outpatient (CLI) | payer MEDICARE ==
[2020-05-16 17:04] LABS: African American GFR (CKD) 81.2 (60.0-200.0); Albumin 4.7 g/dL (3.80-4.90); Albumin/Globulin Ratio 2.14 (1.60-3.17); Anion Gap 8.5 mmol/L (4.00-12.00); BUN/Creat Ratio 17.27 Ratio (12.00-20.00); Carbon Dioxide 26.5 mmol/L (21.6-31.8); Chol/HDL Ratio 2.33; Globulin 2.2 g/dL (1.6-3.3); LDL Cholesterol,Calculated 50.8 mg/dL (0.0-131.0); Non-African American GFR(CKD) 70.1 (60.0-200.0); Potassium 5.3 mmol/L (3.5-5.5); Total Bilirubin 0.9 mg/dL (0.3-1.2); Total Protein 6.9 g/dL (6.2-8.2); VLDL Calculation 17.2 mg/dL (5.00-40.00)
== END | disposition home or self-care (01) ==
LOC: LABWHC1 08:30
PROVIDERS: ATTEND Internal Medicine Endocrinology, Diabetes & Metabolism
DX: E78.2 Mixed hyperlipidemia (principal); E11.65 Type 2 diabetes mellitus with hyperglycemia
CPT/HCPCS: 36415; 80053; 80061; 82043; 82570; 83036; 84443

== ENCOUNTER → 2020-05-29 | Outpatient (CLI) | payer MEDICARE ==
[2020-05-29 16:28] LABS: African American GFR (CKD) 73.1 (60.0-200.0); Anion Gap 8.7 mmol/L (4.00-12.00); BUN/Creat Ratio 21.67 Ratio (12.00-20.00); Calcium 9.9 mg/dL (8.7-10.3); Carbon Dioxide 25.3 mmol/L (21.6-31.8); Magnesium 1.9 mg/dL (1.5-2.4); Non-African American GFR(CKD) 63.1 (60.0-200.0); Potassium 4.4 mmol/L (3.5-5.5)
== END | disposition home or self-care (01) ==
LOC: LABWHC1 07:11
PROVIDERS: ATTEND Nurse Practitioner Adult Health
DX: I10 Essential (primary) hypertension (principal)
CPT/HCPCS: 36415; 80048; 83735

== ENCOUNTER → 2020-06-22 | Outpatient (CLI) | payer MEDICARE ==
[2020-06-22 12:02] LABS: African American GFR (CKD) 81.2 (60.0-200.0); Anion Gap 6.9 mmol/L (4.00-12.00); BUN/Creat Ratio 20.91 Ratio (12.00-20.00); Calcium 9.9 mg/dL (8.7-10.3); Carbon Dioxide 28.1 mmol/L (21.6-31.8); Magnesium 1.8 mg/dL (1.5-2.4); Non-African American GFR(CKD) 70.1 (60.0-200.0); Potassium 4.6 mmol/L (3.5-5.5)
== END | disposition home or self-care (01) ==
LOC: LABWHC1 07:00
PROVIDERS: ATTEND Nurse Practitioner Adult Health
DX: I10 Essential (primary) hypertension (principal)
CPT/HCPCS: 36415; 80048; 83735

== ENCOUNTER → 2021-03-02 | Outpatient (CLI) | payer MEDICARE ==
[2021-03-02 11:54] LABS: African American GFR (CKD) 91.1 (60.0-200.0); Albumin 4.4 g/dL (3.80-4.90); Anion Gap 6.3 mmol/L (4.00-12.00); Calcium 9.4 mg/dL (8.7-10.3); Carbon Dioxide 26.7 mmol/L (21.6-31.8); Chol/HDL Ratio 2.3; Globulin 2.2 g/dL (1.6-3.3); LDL Cholesterol,Calculated 44.4 mg/dL (0.0-131.0); Non-African American GFR(CKD) 78.6 (60.0-200.0); Total Protein 6.6 g/dL (6.2-8.2); VLDL Calculation 20.6 mg/dL (5.00-40.00)
[2021-03-02 12:32] LABS: Urine Creatinine 165.9 mg/dL
== END | disposition home or self-care (01) ==
LOC: LABWHC1 06:58
PROVIDERS: ATTEND Internal Medicine Endocrinology, Diabetes & Metabolism
DX: E11.65 Type 2 diabetes mellitus with hyperglycemia (principal)
CPT/HCPCS: 36415; 80053; 80061; 82043; 82570; 82607; 83036; 84443

== ENCOUNTER → 2021-05-02 | Outpatient (CLI) | payer MEDICARE ==
[2021-05-03 01:44] LABS: HCT 29.7 % (39.6-50.0); HGB 8.8 g/dL (13.0-17.0); MCH 23.8 pg (27.0-32.0); MCHC 29.6 g/dL (32.0-37.0); MCV 80.3 fL (80.0-97.0); Platelet Count 131 X 10*3/uL (140-440); RDW 20.2 % (11.5-14.5); WBC 6.34 X 10*3/uL (4.50-10.00)
== END | disposition home or self-care (01) ==
LOC: LABWHC1 15:50
PROVIDERS: ATTEND Physician Assistant
DX: K92.1 Melena (principal)
CPT/HCPCS: 36415; 85027

== ENCOUNTER → 2021-06-27 | Outpatient (CLI) | payer MEDICARE ==
[2021-06-27 12:07] LABS: Basophils # (A) 0.07 X 10*3/uL (0.00-0.10); Basophils % (A) 1.3 %; Eosinophils # (A) 0.23 X 10*3/uL (0.04-0.35); Eosinophils % (A) 4.2 %; HCT 36.8 % (39.6-50.0); HGB 11.6 g/dL (13.0-17.0); Lymphocytes # (A) 1.39 X 10*3/uL (0.90-5.00); Lymphocytes % (A) 25.4 %; MCH 25.8 pg (27.0-32.0); MCHC 31.5 g/dL (32.0-37.0); MCV 81.8 fL (80.0-97.0); Monocytes # (A) 0.39 X 10*3/uL (0.20-1.00); Monocytes % (A) 7.1 %; Neutrophils # (A) 3.38 X 10*3/uL (1.80-7.70); Neutrophils % (A) 61.8 %; Platelet Count 148 X 10*3/uL (140-440); RDW 25.5 % (11.5-14.5); WBC 5.47 X 10*3/uL (4.50-10.00)
[2021-06-27 23:36] LABS: Urine Creatinine 75.7 mg/dL
[2021-06-28 02:34] LABS: African American GFR (CKD) 90.5 (60.0-200.0); Albumin 4.4 g/dL (3.80-4.90); Albumin/Globulin Ratio 2.32 (1.60-3.17); Anion Gap 10.9 mmol/L (4.00-12.00); Calcium 9.2 mg/dL (8.7-10.3); Carbon Dioxide 24.1 mmol/L (21.6-31.8); Chol/HDL Ratio 2.15; Globulin 1.9 g/dL (1.6-3.3); LDL Cholesterol,Calculated 35.8 mg/dL (0.0-131.0); Non-African American GFR(CKD) 78.1 (60.0-200.0); Potassium 4.6 mmol/L (3.5-5.5); Total Bilirubin 0.9 mg/dL (0.3-1.2); Total Protein 6.3 g/dL (6.2-8.2); VLDL Calculation 17.2 mg/dL (5.00-40.00)
== END | disposition home or self-care (01) ==
LOC: LABWHC1 07:21
PROVIDERS: ATTEND Internal Medicine Endocrinology, Diabetes & Metabolism
DX: E11.65 Type 2 diabetes mellitus with hyperglycemia (principal)
CPT/HCPCS: 36415; 80053; 80061; 82043; 82570; 84443; 85025

== ENCOUNTER → 2021-09-26 | Outpatient (CLI) | payer MEDICARE ==
[2021-09-26 11:25] LABS: Basophils # (A) 0.09 X 10*3/uL (0.00-0.10); Basophils % (A) 1.3 %; Eosinophils # (A) 0.26 X 10*3/uL (0.04-0.35); Eosinophils % (A) 3.7 %; HCT 45.6 % (39.6-50.0); HGB 14.7 g/dL (13.0-17.0); Lymphocytes # (A) 1.78 X 10*3/uL (0.90-5.00); Lymphocytes % (A) 25.4 %; MCH 27.7 pg (27.0-32.0); MCHC 32.2 g/dL (32.0-37.0); MCV 85.9 fL (80.0-97.0); Monocytes # (A) 0.58 X 10*3/uL (0.20-1.00); Monocytes % (A) 8.3 %; Neutrophils # (A) 4.27 X 10*3/uL (1.80-7.70); Platelet Count 148 X 10*3/uL (140-440); RBC 5.31 X 10*6/uL (4.40-5.60)
[2021-09-26 12:49] LABS: ALT 12 U/L (10-49); AST 15 U/L (14-35); African American GFR (CKD) 72.6 (60.0-200.0); Albumin 4.6 g/dL (3.8-4.9); Alkaline Phosphatase 48 U/L (41-126); BUN/Creat Ratio 22.75 Ratio (12.00-20.00); Blood Urea Nitrogen 27.3 mg/dL (9.0-27.0); Calcium 10.3 mg/dL (8.7-10.3); Carbon Dioxide 24.2 mmol/L (20.0-27.5); Chloride 101 mmol/L (96-109); Chol/HDL Ratio 2.65 Ratio; Globulin 2.3 g/dL (1.6-3.3); Glucose 136 mg/dL (70-110); LDL Cholesterol,Calculated 30.7 mg/dL (0.0-131.0); Non-African American GFR(CKD) 62.6 (60.0-200.0); Potassium 5.1 mmol/L (3.5-5.5); Sodium 139 mmol/L (135-145); Total Protein 6.9 g/dL (6.2-8.2)
== END | disposition home or self-care (01) ==
LOC: LABWHC1 07:01
PROVIDERS: ATTEND Internal Medicine Endocrinology, Diabetes & Metabolism
DX: E11.65 Type 2 diabetes mellitus with hyperglycemia (principal)
CPT/HCPCS: 36415; 80053; 80061; 82043; 82570; 83036; 84443; 85025

== ENCOUNTER → 2022-01-01 | Outpatient (CLI) | payer MEDICARE | END | disposition home or self-care (01) | LOC: LABWHC1 06:57 | PROVIDERS: ATTEND Physician Assistant Medical | DX: L57.3 Poikiloderma of Civatte (principal); L21.8 Other seborrheic dermatitis; L30.8 Other specified dermatitis | CPT/HCPCS: 36415; 86038 ==

== ENCOUNTER 2022-01-20 01:42 | Inpatient (IN) | payer MEDICARE ==
--- NOTE | 2022-01-20 02:37 | XR ---
EXAMINATION TYPE: XR chest 1V portable DATE OF EXAM: 01/20/2022 COMPARISON: NONE HISTORY: Irregular heart rate TECHNIQUE: Single view FINDINGS: Heart and mediastinum are normal. Lungs are clear of infiltrate. There is no pleural effusi on. There are chest leads. Bony thorax is intact. IMPRESSION: Normal chest
[2022-01-20 03:00] LABS: Basophils # (A) 0.1 k/uL (0-0.2); Basophils % (A) 2 %; Eosinophils # (A) 0.7 k/uL (0-0.7); Eosinophils % (A) 9 %; HCT 47.9 % (39.0-53.0); HGB 15.8 gm/dL (13.0-17.5); Lymphocytes # (A) 1.5 k/uL (1.0-4.8); Lymphocytes % (A) 19 %; MCH 29.7 pg (25.0-35.0); MCHC 32.9 g/dL (31.0-37.0); MCV 90.4 fL (80.0-100.0); Mean Platelet Volume 7.4; Monocytes # (A) 0.4 k/uL (0-1.0); Monocytes % (A) 6 %; Neutrophils # (A) 4.9 k/uL (1.3-7.7); Neutrophils % (A) 62 %; Platelet Count 154 k/uL (150-450); RBC 5.31 m/uL (4.30-5.90); RDW 14.9 % (11.5-15.5); WBC 7.8 k/uL (3.8-10.6)
[2022-01-20] MEDS ORDERED: DILTIAZEM DRIP BOLUS FROM BAG 1 MG SOLN IV ONE (03:11)
[2022-01-20 03:12] LABS: ALT 16 U/L (4-49); AST 22 U/L (17-59); African American GFR (CKD) >90 (>60 ml/min/1.73 sqM); Albumin 4.5 g/dL (3.5-5.0); Alkaline Phosphatase 48 U/L (38-126); Anion Gap 9 mmol/L; Blood Urea Nitrogen 16 mg/dL (9-20); Calcium 9.9 mg/dL (8.4-10.2); Carbon Dioxide 26 mmol/L (22-30); Chloride 102 mmol/L (98-107); Glucose 139 mg/dL (74-99); Magnesium 1.8 mg/dL (1.6-2.3); Non-African American GFR(CKD) 90 (>60 ml/min/1.73 sqM); Potassium 4.2 mmol/L (3.5-5.1); Sodium 137 mmol/L (137-145); Total Bilirubin 1.2 mg/dL (0.2-1.3); Total Protein 7.4 g/dL (6.3-8.2)
[2022-01-20 03:14] LABS: Partial Thromboplastin Time 22.3 sec (22.0-30.0); Prothrombin Time 10.5 sec (9.0-12.0)
[2022-01-20] MEDS ORDERED: DILTIAZEM 125 MG in SODIUM CHLORIDE 0.9% 100 ML IV SCH ×2 (03:15→10:00)
[2022-01-20] MEDS ORDERED: NITROGLYCERIN SL TABS 0.4 MG TAB SUBLINGUAL PRN (03:29)
--- NOTE | 2022-01-20 04:13 | ED ---
Arrhythmia/Palpitations HPI - General Chief Complaint: Arrhythmia/Palpitations Stated Complaint: Afib, high BP Time Seen by Provider: 01/20/22 02:05 Source: patient Mode of arrival: wheelchair Limitations: no limitations - History of Present Illness Initial Comments: This patient is a 66-year-old man who presents to have evaluation for what he believes is a recurrence of his atrial fibrillation. Patient has prior history of atrial fibrillation. He had a previous ablation. The patient is taking dofetilide. The patient states that he was trying to get to sleep tonight around 10 PM when he felt his heart start beating irregularly and rapidly. Neil hightower notes that he had been trying to stop using Xanax as a medication and he believes that weaning off of this may have contributed. He states that he took half dose of the Xanax and when that did not relieve things she took a full dose of the Xanax but he continued to have rapid heartbeat. Patient has not had chest pain, dyspnea, diaphoresis, nausea or vomiting. MD Complaint: rapid heart beat, palpitations Onset/Timin -: hour(s) Context: occurred during rest Arrhythmia History: atrial fibrillation Associated Symptoms: anxiety Treatments Prior to Arrival: other - Related Data Home Medications Medication Instructions Recorded Confirmed Atorvastatin [Lipitor] 20 mg PO HS 03/10/19 07/26/19 Glimepiride [Amaryl] 2 mg PO DAILY 03/10/19 07/26/19 Tamsulosin [Flomax] 0.4 mg PO DAILY 03/10/19 07/26/19 allopurinoL [Zyloprim] 300 mg PO HS 03/10/19 07/26/19 metFORMIN HCL [Glucophage] 1,000 mg PO BID 03/10/19 07/26/19 ALPRAZolam [Xanax] 0.25 mg PO BID PRN 07/26/19 07/26/19 Dulaglutide [Trulicity] 1.5 mg SQ ADDISON 07/26/19 07/26/19 Fexofenadine HCl [Cecilia Allergy] 180 mg PO DAILY 07/26/19 07/26/19 Magnesium 1000mg 1,000 mg PO DAILY 07/26/19 07/26/19 Manganese 4mg 4 mg PO HS 07/26/19 07/26/19 Nystatin 1 applic TOPICAL BID 07/26/19 07/26/19 Rivaroxaban [Xarelto] 20 mg PO DAILY 07/26/19 07/26/19 Terbinafine 1% Cream [LamISIL] 1 applic TOPICAL BID 07/26/19 07/26/19 Terbinafine [LamISIL] 250 mg PO DAILY 07/26/19 07/26/19 Triamcinolone 0.1% Cream [Kenalog 1 applicatio TOPICAL BID 07/26/19 07/26/19 0.1% Cream] Valsartan [Diovan] 160 mg PO DAILY 07/26/19 07/26/19 Previous Rx's Medication Instructions Recorded Dofetilide [Tikosyn] 125 mcg PO Q12HR #180 cap 07/30/19 carvediloL [Coreg] 6.25 mg PO BID #180 tablet 07/30/19 Allergies Allergy/AdvReac Type Severity Reaction Status Date / Time adhesive tape Allergy rash/red Verified 01/20/22 01:49 skin Iodinated Contrast Media Allergy Rash/Hives Verified 01/20/22 01:49 [Iodinated Contrast- Oral and IV Dye] latex Allergy red skin Verified 01/20/22 01:49 Review of Systems ROS Statement: Those systems with pertinent positive or pertinent negative responses have been documented in the HPI. ROS Other: All systems not noted in ROS Statement are negative. Constitutional: Denies: fever, chills Respiratory: Denies: cough, dyspnea Cardiovascular: Reports: palpitations. Denies: chest pain, orthopnea, edema, syncope Gastrointestinal: Denies: abdominal pain, nausea, vomiting Genitourinary: Denies: dysuria, frequency Musculoskeletal: Denies: back pain Skin: Denies: rash Neurological: Denies: headache, weakness, numbness Psychiatric: Reports: anxiety Past Medical History Past Medical History: Atrial Fibrillation, Coronary Artery Disease (CAD), Chest Pain / Angina, Diabetes Mellitus, Hyperlipidemia, Renal Disease, Skin Disorder Additional Past Medical History / Comment(s): occular migraines, gout, eczema, dx with stage III kidney failure, tinnitus, fungal infection in groin area, pt refusing pictures History of Any Multi-Drug Resistant Organisms: None Reported Past Surgical History: Heart Catheterization With Stent, Orthopedic Surgery, Tonsillectomy Additional Past Surgical History / Comment(s): two cardiac stents, rt foot bunionectomy, rt knee arthroscopy, surgery to remove uvula Past Anesthesia/Blood Transfusion Reactions: Motion Sickness Date of Last Stent Placement:: 2005 Past Psychological History: Anxiety Smoking Status: Former smoker Past Alcohol Use History: Occasional Past Drug Use History: None Reported - Past Family History Mother Family Medical History: Unable to Obtain General Exam Limitations: no limitations General appearance: alert, in no apparent distress Head exam: Present: atraumatic, normocephalic Eye exam: Present: normal appearance. Absent: scleral icterus, conjunctival injection ENT exam: Present: normal oropharynx Neck exam: Present: normal inspection Respiratory exam: Present: normal lung sounds bilaterally. Absent: respiratory distress, wheezes, rales, rhonchi, stridor, accessory muscle use Cardiovascular Exam: Present: tachycardia, irregular rhythm, normal heart sounds, systolic murmur. Absent: diastolic murmur, rubs, gallop GI/Abdominal exam: Present: soft. Absent: distended, tenderness, guarding, rebound, rigid, mass Extremities exam: Present: normal inspection, normal capillary refill. Absent: pedal edema, calf tenderness Back exam: Present: normal inspection Neurological exam: Present: alert Skin exam: Present: warm, dry, intact, normal color. Absent: rash Course Vital Signs 01/20/22 01/20/22 01/20/22 01:46 02:39 03:47 Temperature 98.0 F Pulse Rate 125 H 112 H 101 H Respiratory 20 18 18 Rate Blood Pressure 111/81 113/72 102/77 O2 Sat by Pulse 99 95 96 Oximetry 01/20/22 01/20/22 01/20/22 04:53 06:07 06:53 Temperature Pulse Rate 81 86 77 Respiratory 18 18 18 Rate Blood Pressure 112/76 94/54 102/79 O2 Sat by Pulse 96 95 99 Oximetry EKG Findings - EKG Results: EKG: interpreted by ERMD, normal axis, normal QRS, normal ST/T EKG shows: atrial fibrillation (Rate 119 bpm) Medical Decision Making - Lab Data Result diagrams: 01/20/22 02:39 01/20/22 02:39 Lab Results 01/20/22 01/20/22 01/20/22 Range/Units 02:39 02:39 02:39 WBC 7.8 (3.8-10.6) k/uL RBC 5.31 (4.30-5.90) m/uL Hgb 15.8 (13.0-17.5) gm/dL Hct 47.9 (39.0-53.0) % MCV 90.4 (80.0-100.0) fL MCH 29.7 (25.0-35.0) pg MCHC 32.9 (31.0-37.0) g/dL RDW 14.9 (11.5-15.5) % Plt Count 154 (150-450) k/uL MPV 7.4 Neutrophils % 62 % Lymphocytes % 19 % Monocytes % 6 % Eosinophils % 9 % Basophils % 2 % Neutrophils # 4.9 (1.3-7.7) k/uL Lymphocytes # 1.5 (1.0-4.8) k/uL Monocytes # 0.4 (0-1.0) k/uL Eosinophils # 0.7 (0-0.7) k/uL Basophils # 0.1 (0-0.2) k/uL PT 10.5 (9.0-12.0) sec INR 1.0 (<1.2) APTT 22.3 (22.0-30.0) sec Sodium 137 (137-145) mmol/L Potassium 4.2 (3.5-5.1) mmol/L Chloride 102 (98-107) mmol/L Carbon Dioxide 26 (22-30) mmol/L Anion Gap 9 mmol/L BUN 16 (9-20) mg/dL Creatinine 0.88 (0.66-1.25) mg/dL Est GFR (CKD-EPI)AfAm >90 (>60 ml/min/1.73 sqM) Est GFR (CKD-EPI)NonAf 90 (>60 ml/min/1.73 sqM) Glucose 139 H (74-99) mg/dL Calcium 9.9 (8.4-10.2) mg/dL Magnesium 1.8 (1.6-2.3) mg/dL Total Bilirubin 1.2 (0.2-1.3) mg/dL AST 22 (17-59) U/L ALT 16 (4-49) U/L Alkaline Phosphatase 48 (38-126) U/L Troponin I (0.000-0.034) ng/mL Total Protein 7.4 (6.3-8.2) g/dL Albumin 4.5 (3.5-5.0) g/dL 01/20/22 Range/Units 02:39 WBC (3.8-10.6) k/uL RBC (4.30-5.90) m/uL Hgb (13.0-17.5) gm/dL Hct (39.0-53.0) % MCV (80.0-100.0) fL MCH (25.0-35.0) pg MCHC (31.0-37.0) g/dL RDW (11.5-15.5) % Plt Count (150-450) k/uL MPV Neutrophils % % Lymphocytes % % Monocytes % % Eosinophils % % Basophils % % Neutrophils # (1.3-7.7) k/uL Lymphocytes # (1.0-4.8) k/uL Monocytes # (0-1.0) k/uL Eosinophils # (0-0.7) k/uL Basophils # (0-0.2) k/uL PT (9.0-12.0) sec INR (<1.2) APTT (22.0-30.0) sec Sodium (137-145) mmol/L Potassium (3.5-5.1) mmol/L Chloride (98-107) mmol/L Carbon Dioxide (22-30) mmol/L Anion Gap mmol/L BUN (9-20) mg/dL Creatinine (0.66-1.25) mg/dL Est GFR (CKD-EPI)AfAm (>60 ml/min/1.73 sqM) Est GFR (CKD-EPI)NonAf (>60 ml/min/1.73 sqM) Glucose (74-99) mg/dL Calcium (8.4-10.2) mg/dL Magnesium (1.6-2.3) mg/dL Total Bilirubin (0.2-1.3) mg/dL AST (17-59) U/L ALT (4-49) U/L Alkaline Phosphatase (38-126) U/L Troponin I <0.012 (0.000-0.034) ng/mL Total Protein (6.3-8.2) g/dL Albumin (3.5-5.0) g/dL Critical Care Time Critical Care Time: Yes (30 minutes) Disposition Clinical Impression: Atrial fibrillation with rapid ventricular response Disposition: ADMITTED IP TO THIS HOSP Condition: Good
[2022-01-20 07:43] LABS: Glucose,Whole Blood 120 mg/dL (75-99)
[2022-01-20] MEDS: carvediloL 12.5 MG TAB PO SCH ×2 (09:50→17:15)
[2022-01-20] MEDS: DOFETILIDE 125 MCG CAP PO SCH ×2 (09:50→21:49)
[2022-01-20] MEDS: CLOPIDOGREL 75 MG TAB PO SCH (09:50)
[2022-01-20] MEDS ORDERED: ACETAMINOPHEN TAB 500 MG TAB PO PRN (10:25)
[2022-01-20] MEDS ORDERED: PIMECROLIMUS TRANSDERM PRN (10:25)
--- NOTE | 2022-01-20 10:26 | P.HPIM ---
History of Present Illness This is a pleasant 66 years old male with past medical history of atrial fibrillation not on anticoagulation, hypertension, hyperlipidemia, diabetes mellitus, migraine, gout, chronic kidney disease stage III, coronary artery disease status post stent, anxiety Patient presents because of palpitations with irregular heartbeat. This palpitation has been going on for a couple months on and off, yesterday become more severe and continuous decided to come to the emergency room. She denies any chest pain or dizziness. His palpitation is gone currently. He follows up with pourer bull ladle Dr. Man as an outpatient. And he confirmed to me he is not on any blood thinner, he denied using Xarelto which was documented on office this medication on admission and stating that he takes only Plavix at home. Patient hemodynamically stable. Heart rate was tachycardia 1 2500 admission, currently 77. Labs including CBC, INR, BMP and liver enzymes are unremarkable. Troponin are negative 2, with level less than 0.012. EKG showing atrial fibrillation with a rate of [address]-T changes Chest x-ray: No acute process. Review of Systems CONSTITUTIONAL: No fever, no malaise, no fatigue. HEENT: No recent visual problems or hearing problems. Denied any sore throat. CARDIOVASCULAR: No orthopnea, PND, no palpitations, no syncope. PULMONARY: No shortness of breath, no cough, no hemoptysis. GASTROINTESTINAL: No diarrhea, no nausea, no vomiting, no abdominal pain. Normoactive bowel sounds. NEUROLOGICAL: No headaches, no weakness, no numbness. HEMATOLOGICAL: Denies any bleeding or petechiae. GENITOURINARY: Denies any burning micturition, frequency, or urgency. MUSCULOSKELETAL/RHEUMATOLOGICAL: Denies any joint pain, swelling, or any muscle pain. ENDOCRINE: Denies any polyuria or polydipsia. Past Medical History Past Medical History: Atrial Fibrillation, Coronary Artery Disease (CAD), Chest Pain / Angina, Diabetes Mellitus, Hyperlipidemia, Renal Disease, Skin Disorder Additional Past Medical History / Comment(s): occular migraines, gout, eczema, dx with stage III kidney failure, tinnitus, fungal infection in groin area, pt refusing pictures History of Any Multi-Drug Resistant Organisms: None Reported Past Surgical History: Heart Catheterization With Stent, Orthopedic Surgery, Tonsillectomy Additional Past Surgical History / Comment(s): two cardiac stents, rt foot bunionectomy, rt knee arthroscopy, surgery to remove uvula Past Anesthesia/Blood Transfusion Reactions: Motion Sickness Date of Last Stent Placement:: 2005 Past Psychological History: Anxiety Smoking Status: Former smoker Past Alcohol Use History: Occasional Past Drug Use History: None Reported - Past Family History Mother Family Medical History: Unable to Obtain Medications and Allergies Home Medications Medication Instructions Recorded Confirmed Type Atorvastatin [Lipitor] 40 mg PO HS 03/10/19 01/20/22 History Tamsulosin [Flomax] 0.4 mg PO DAILY 03/10/19 01/20/22 History allopurinoL [Zyloprim] 300 mg PO DAILY 03/10/19 01/20/22 History metFORMIN HCL [Glucophage] 1,000 mg PO BID 03/10/19 01/20/22 History ALPRAZolam [Xanax] 0.25 mg PO BID PRN 07/26/19 01/20/22 History Magnesium 1000mg 500 mg PO BID 07/26/19 01/20/22 History Dofetilide [Tikosyn] 125 mcg PO Q12HR #180 cap 07/30/19 01/20/22 Rx Acetaminophen Tab [Tylenol] 1,000 mg PO HS PRN 01/20/22 01/20/22 History Clopidogrel [Plavix] 75 mg PO DAILY 01/20/22 01/20/22 History Dulaglutide [Trulicity] 4.5 mg SQ ADDISON 01/20/22 01/20/22 History Ketoconazole [Ketoconazole 2%] 1 applic TRANSDERM DAILY PRN 01/20/22 01/20/22 History Pimecrolimus [Elidel] 1 applic TRANSDERM DAILY PRN 01/20/22 01/20/22 History carvediloL [Coreg] 25 mg PO BID 01/20/22 01/20/22 History diphenhydrAMINE HCL [Benadryl] 25 mg PO DAILY PRN 01/20/22 01/20/22 History Allergies Allergy/AdvReac Type Severity Reaction Status Date / Time adhesive tape Allergy rash/red Verified 01/20/22 01:49 skin Iodinated Contrast Media Allergy Rash/Hives Verified 01/20/22 01:49 [Iodinated Contrast- Oral and IV Dye] latex Allergy red skin Verified 01/20/22 01:49 Physical Exam Vitals: Vital Signs Temp Pulse Resp BP Pulse Ox 01/20/22 06:53 77 18 102/79 99 01/20/22 06:07 86 18 94/54 95 01/20/22 04:53 81 18 112/76 96 01/20/22 03:47 101 H 18 102/77 96 01/20/22 02:39 112 H 18 113/72 95 01/20/22 01:46 98.0 F 125 H 20 111/81 99 Intake and Output 01/19/22 01/20/22 01/20/22 22:59 06:59 14:59 Other: Weight 102.058 kg GENERAL: The patient is alert and oriented x3, not in any acute distress. Well developed, well nourished. HEENT: Pupils are round and equally reacting to light. EOMI. No scleral icterus. No conjunctival pallor. Normocephalic, atraumatic. No pharyngeal erythema. No thyromegaly. CARDIOVASCULAR: S1 and S2 present. No murmurs, rubs, or gallops. PULMONARY: Chest is clear to auscultation, no wheezing or crackles. ABDOMEN: Soft, nontender, nondistended, normoactive bowel sounds. No palpable organomegaly. MUSCULOSKELETAL: No joint swelling or deformity. EXTREMITIES: No cyanosis, clubbing, or pedal edema. NEUROLOGICAL: Gross neurological examination did not reveal any focal deficits. SKIN: No rashes. No petechiae Results CBC & Chem 7: 01/20/22 02:39 01/20/22 02:39 Labs: Abnormal Lab Results - Last 24 Hours (Table) 01/20/22 Range/Units 02:39 Glucose 139 H (74-99) mg/dL Assessment and Plan Assessment: Atrial fibrillation's with RVR, not on anticoagulation Hypertension Hyperlipidemia Diabetes mellitus Coronary artery disease status post stent placement History of gout History of migraine Chronic kidney disease, stage III. Diabetic nephropathy Plan: This is a pleasant 66 years old male who presents with A. fib and RVR Continue with Cardizem drip Cardiology consult Continue with Plavix. Decision for need for anticoagulation will be deferred to cardiology team. Labs and medication were reviewed.. Continue same treatment. Continue with symptomatic treatment. Resume home medication. Monitor lytes and vitals. DVT and GI prophylaxis. Further recommendations depends on the clinical course of the patient DVT prophylaxis: Subcutaneous heparin GI Prophylaxis: Pepcid
[2022-01-20] MEDS ORDERED: ALPRAZolam 0.25 MG TAB PO PRN (10:50)
[2022-01-20] MEDS: HEPARIN SODIUM,PORCINE/PF 5,000 UNIT/0.5 ML SYRINGE SQ SCH ×2 (11:10→21:49)
[2022-01-20 11:30] LABS: Glucose,Whole Blood 93 mg/dL (75-99)
--- NOTE | 2022-01-20 12:51 | P.CRDCN ---
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 Patient is not aware of any episodes of atrial fibrillation since the ablation done in July [address] Urias. Patient states that he has had episodes of the past couple months. He has a shooting pain in his left arm and almost feels palpitations. At 10 PM yesterday, he was trying to sleep and he could feel his heart was irregular. 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 Electrolytes and renal function normal. Blood sugar 139. Liver function tests normal. Magnesium 1.8. Chest x-ray normal Home cardiac medications: Tikosyn 125 mcg every 12 hours, Coreg 25 mg twice daily, atorvastatin, Plavix Review Of Systems: Constitutional: No fever, no chills. No weakness, fatigue or lethargy. EENT: No headache. No dizziness. Lungs: No shortness of breath, cough, no sputum production. No wheezing. Cardiovascular: No chest pain, no lower extremity edema. Reports palpitations. No paroxysmal nocturnal dyspnea. No orthopnea. No lightheadedness or dizziness. No syncopal episodes. Abdominal: No abdominal pain. No nausea, vomiting. No diarrhea. No constipation. No bloody or tarry stools.. No loss of appetite. Genitourinary: No dysuria.. No urinary retention. Musculoskeletal: No myalgias. No muscle weakness, no gait dysfunction, no frequent falls. No back pain. No neck pain. Integumentary: No wounds, no lesions. No rash or pruritus. No unusual bruising. Neurologic: No aphasia. No facial droop. No change in mentation. No head injury. No headache. No paralysis. No paresthesia. Psychiatric: No depression. No anxiety. Endocrine: No abnormal blood sugars. Physical examination: Gen: This is a 66-year-old male, resting in bed and appears to be comfortable and in no acute distress HEENT: Head is atraumatic, normocephalic. Pupils equal, round. Sclerae is anicteric. NECK: Supple. No JVD. No lymphadenopathy. No thyromegaly. LUNGS: Clear to auscultation. No wheezes or rhonchi. No intercostal retractions. HEART: Irregular rate and rhythm. No murmur. ABDOMEN: Soft. Bowel sounds are present. No masses. No tenderness. EXTREMITIES: Trace bilateral pedal edema. No calf tenderness. NEUROLOGICAL: Patient is awake, alert and oriented x3. Cranial nerves 2 through 12 are grossly intact. Assessment: Persistent atrial fibrillation status post electrocardioversion and ablation, watchman procedure Coronary artery disease Diabetes mellitus type 2 Hypertension History of GI bleed Plan: Continue patient on Cardizem drip at 5 mg per hour Resume Tikosyn 125 g every 12 hours and Coreg 25 mg twice daily Obtain 2-D echocardiogram and Doppler study to assess cardiac structure and function Case will be discussed with Dr. Urias Further recommendations to follow based upon clinical course Thank you kindly for this consultation. Nurse practitioner note has been reviewed, I agree with documented findings and plan of care. Patient was seen and examined. Past Medical History Past Medical History: Atrial Fibrillation, Coronary Artery Disease (CAD), Chest Pain / Angina, Diabetes Mellitus, Hyperlipidemia, Renal Disease, Skin Disorder Additional Past Medical History / Comment(s): occular migraines, gout, eczema, dx with stage III kidney failure, tinnitus, fungal infection in groin area, pt refusing pictures History of Any Multi-Drug Resistant Organisms: None Reported Past Surgical History: Heart Catheterization With Stent, Orthopedic Surgery, Tonsillectomy Additional Past Surgical History / Comment(s): two cardiac stents, rt foot bunionectomy, rt knee arthroscopy, surgery to remove uvula Past Anesthesia/Blood Transfusion Reactions: Motion Sickness Date of Last Stent Placement:: 2005 Past Psychological History: Anxiety Smoking Status: Former smoker Past Alcohol Use History: Occasional Past Drug Use History: None Reported - Past Family History Mother Family Medical History: Unable to Obtain Medications and Allergies Home Medications Medication Instructions Recorded Confirmed Type Tamsulosin [Flomax] 0.4 mg PO DAILY 03/10/19 01/20/22 History allopurinoL [Zyloprim] 300 mg PO DAILY 03/10/19 01/20/22 History metFORMIN HCL [Glucophage] 1,000 mg PO BID 03/10/19 01/20/22 History ALPRAZolam [Xanax] 0.25 mg PO BID PRN 07/26/19 01/20/22 History Dofetilide [Tikosyn] 125 mcg PO Q12HR #180 cap 07/30/19 01/20/22 Rx Acetaminophen Tab [Tylenol] 1,000 mg PO Q8H PRN 01/20/22 01/20/22 History Ammonium Lactate Lotion 1 applic TOPICAL BID PRN 01/20/22 01/20/22 History [Lac-Hydrin 12% Lotion] Atorvastatin Calcium [Lipitor] 40 mg PO HS 01/20/22 01/20/22 History Carvedilol [Coreg] 25 mg PO BID 01/20/22 01/20/22 History Clopidogrel [Plavix] 75 mg PO DAILY 01/20/22 01/20/22 History Dulaglutide [Trulicity] 4.5 mg SQ ADDISON 01/20/22 01/20/22 History Escitalopram [Lexapro] 10 mg PO DAILY 01/20/22 01/20/22 History Fluocinonide [Lidex 0.05%] 1 applic TOPICAL BID PRN 01/20/22 01/20/22 History Fluticasone Nasal [place] [Flonase 1 spray EA NOSTRIL DAILY PRN 01/20/22 01/20/22 History Nasal [place]] Ketoconazole [Ketoconazole 2%] 1 applic TOPICAL BID PRN 01/20/22 01/20/22 History Magnesium Oxide [Loco] 500 mg PO BID 01/20/22 01/20/22 History Pimecrolimus [Elidel] 1 applic TOPICAL BID PRN 01/20/22 01/20/22 History diphenhydrAMINE HCL [Benadryl] 25 mg PO DAILY PRN 01/20/22 01/20/22 History Allergies Allergy/AdvReac Type Severity Reaction Status Date / Time adhesive tape Allergy rash/red Verified 01/20/22 12:25 skin Iodinated Contrast Media Allergy Rash/Hives Verified 01/20/22 12:25 [Iodinated Contrast- Oral and IV Dye] latex Allergy red skin Verified 01/20/22 12:25 Physical Exam Vitals: Vital Signs Temp Pulse Pulse Resp BP BP Pulse Ox 01/20/22 07:21 72 16 111/66 100 01/20/22 06:53 77 18 102/79 99 01/20/22 06:07 86 18 94/54 95 01/20/22 04:53 81 18 112/76 96 01/20/22 03:47 101 H 18 102/77 96 01/20/22 02:39 112 H 18 113/72 95 01/20/22 01:46 98.0 F 125 H 20 111/81 99 Intake and Output 01/19/22 01/20/22 01/20/22 22:59 06:59 14:59 Other: Weight 102.058 kg Results 01/20/22 02:39 01/20/22 02:39 Cardiac Enzymes 01/20/22 01/20/22 01/20/22 Range/Units 02:39 02:39 04:36 AST 22 (17-59) U/L Troponin I <0.012 <0.012 (0.000-0.034) ng/mL 01/20/22 Range/Units 08:09 AST (17-59) U/L Troponin I <0.012 (0.000-0.034) ng/mL Coagulation 01/20/22 Range/Units 02:39 PT 10.5 (9.0-12.0) sec APTT 22.3 (22.0-30.0) sec CBC 01/20/22 Range/Units 02:39 WBC 7.8 (3.8-10.6) k/uL RBC 5.31 (4.30-5.90) m/uL Hgb 15.8 (13.0-17.5) gm/dL Hct 47.9 (39.0-53.0) % Plt Count 154 (150-450) k/uL Comprehensive Metabolic Panel 01/20/22 Range/Units 02:39 Sodium 137 (137-145) mmol/L Potassium 4.2 (3.5-5.1) mmol/L Chloride 102 (98-107) mmol/L Carbon Dioxide 26 (22-30) mmol/L BUN 16 (9-20) mg/dL Creatinine 0.88 (0.66-1.25) mg/dL Glucose 139 H (74-99) mg/dL Calcium 9.9 (8.4-10.2) mg/dL AST 22 (17-59) U/L ALT 16 (4-49) U/L Alkaline Phosphatase 48 (38-126) U/L Total Protein 7.4 (6.3-8.2) g/dL Albumin 4.5 (3.5-5.0) g/dL Current Medications Generic Name Dose Route Start Last Admin Trade Name Freq PRN Reason Stop Dose Admin Aspirin 325 mg 01/21/22 09:00 Aspirin 325 Mg Tab PO DAILY SEBASTIAN Diltiazem HCl 125 mg/ Sodium 125 mls @ 5 mls/hr 01/20/22 03:15 01/20/22 03:47 Chloride IV 5 mg/hr .Q24H SEBASTIAN 5 mls/hr Administration 5 MG/HR Nitroglycerin 0.4 mg 01/20/22 03:29 Nitroglycerin Sl Tabs 0.4 Mg Tab SUBLINGUAL Q5M PRN Chest Pain Intake and Output 01/19/22 01/20/22 01/20/22 22:59 06:59 14:59 Other: Weight 102.058 kg 01/20/22 02:39 01/20/22 02:39
[2022-01-20 16:35] LABS: Glucose,Whole Blood 108 mg/dL (75-99)
[2022-01-20] MEDS: metFORMIN 500 MG TAB PO SCH (17:15)
[2022-01-20] MEDS ORDERED: ATORVASTATIN 40 MG TAB PO SCH (21:00)
[2022-01-21] MEDS: metFORMIN 500 MG TAB PO SCH (06:35)
[2022-01-21] MEDS: carvediloL 12.5 MG TAB PO SCH (06:35)
[2022-01-21 08:58] VITALS: RESP 18; TEMP 97
[2022-01-21] MEDS ORDERED: ASPIRIN 325 MG TAB PO SCH (09:00)
[2022-01-21] MEDS ORDERED: allopurinoL 300 MG TAB PO SCH (09:00)
[2022-01-21] MEDS ORDERED: TAMSULOSIN 0.4 MG CAP.ER.24H PO SCH (09:00)
[2022-01-21] MEDS ORDERED: ASPIRIN 81 MG PO SCH (09:00)
[2022-01-21] MEDS: HEPARIN SODIUM,PORCINE/PF 5,000 UNIT/0.5 ML SYRINGE SQ SCH (09:17)
[2022-01-21] MEDS: CLOPIDOGREL 75 MG TAB PO SCH (09:17)
[2022-01-21] MEDS: DOFETILIDE 125 MCG CAP PO SCH (09:19)
--- NOTE | 2022-01-21 10:45 | ECHOF ---
Referral Reason:LVF MEASUREMENTS -------- HEIGHT: 170.2 cm WEIGHT: 102.1 kg BP: 101/60 RVIDd: 2.9 cm (< 3.3) IVSd: 1.2 cm (0.6 - 1.1) LVIDd: 4.6 cm (3.9 - 5.3) LVPWd: 1.2 cm (0.6 - 1.1) IVSs: 1.6 cm LVIDs: 3.2 cm LVPWs: 1.6 cm LA Diam: 3.8 cm (2.7 - 3.8) LAESV Index (A-L): 29.18 ml/m Ao Diam: 3.8 cm (2.0 - 3.7) AV Cusp: 2.2 cm (1.5 - 2.6) MV EXCURSION: 19.783 mm (> 18.000) MV EF SLOPE: 86 mm/s (70 - 150) EPSS: 0.6 cm MV E Mendel: 1.23 m/s MV DecT: 209 ms MV A Mendel: 0.74 m/s MV E/A Ratio: 1.65 RAP: 5.00 mmHg RVSP: 27.33 mmHg FINDINGS -------- Sinus rhythm. This was a technically adequate study. The left ventricular size is normal. There is borderline concentric left ventricular hypertrophy. Overall left ventricular systolic function is normal with, an EF between 60 - 65 %. The right ventricle is normal in size. LA is midly dilated 29-33ml/m2. The right atrium is normal in size. Interatrial and interventricular septum intact. The aortic valve is trileaflet, and appears structurally normal. No aortic stenosis or regurgitation. There is trace mitral regurgitation. Mild tricuspid regurgitation present. Right ventricular systolic pressure is normal at < 35 mmHg. Trace/mild (physiologic) pulmonic regurgitation. The aortic root is dilated measuring 3.8cm. Normal inferior vena cava with normal inspiratory collapse consistent with estimated right atrial pre ssure of 5 mmHg. There is no pericardial effusion. CONCLUSIONS -------- 1. The left ventricular size is normal. 2. There is borderline concentric left ventricular hypertrophy. 3. Overall left ventricular systolic function is normal with, an EF between 60 - 65 %. 4. LA is midly dilated 29-33ml/m2. 5. Interatrial and interventricular septum intact. 6. There is trace mitral regurgitation. 7. Mild tricuspid regurgitation present. 8. Trace/mild (physiologic) pulmonic regurgitation. 9. The aortic root is dilated measuring 3.8cm. 10. There is no pericardial effusion. CORN CHIP MAKER: Clarisse Biswas RDCS
[2022-01-21 11:16] LABS: Chol/HDL Ratio 2.11 Ratio; LDL Cholesterol,Calculated 20.7 mg/dL (0.0-131.0)
--- NOTE | 2022-01-21 12:12 | P.PN ---
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 Patient is not aware of any episodes of atrial fibrillation since the ablation done in July [address] Urias. Patient presents to the hospital with complaints of episodes of shooting pain in his left arm and palpitations. EKG on admission revealed atrial fibrillation at a heart rate of 119. Patient started on IV cardizem and resumed on his home Tikosyn and carvedilol. He converted to sinus mechanism 01/21/2022 Patient seen and examined at bedside, no acute distress. He is maintaining sinus mechanism. No acute events overnight. Echocardiogram revealed EF 6065 percent, trace mitral regurgitation, mild tricuspid regurgitation. Patient is currently maintained on aspirin 80 mg daily, atorvastatin 40 mg nightly, prednisone, Tikosyn 125 mcg every 12 hours, Coreg 25 mg twice daily, Plavix 75 mg daily PHYSICAL EXAMINATION Gen: This is a 66-year-old male, resting in bed and appears to be comfortable and in no acute distress GENERAL: Well-appearing, well-nourished and in no acute distress. NECK: Supple without JVD or thyromegaly. LUNGS: Breath sounds clear to auscultation bilaterally. Respiration equal and unlabored. No wheezes, rales or rhonchi. HEART: Regular rate and rhythm without murmurs, rubs or gallops. S1 and S2 heard. EXTREMITIES: Normal range of motion, no edema. No clubbing or cyanosis. Peripheral pulses intact. ASSESSMENT Persistent atrial fibrillation status post electrocardioversion and ablation, s/p watchman procedure, in sinus mechanism Coronary artery disease s/p previous stenting Diabetes mellitus type 2 Hypertension History of GI bleed Plan: From cardiology perspective, patient is to be discharged home. 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 Man Nurse practitioner note has been reviewed, I agree with documented findings and plan of care. Patient was seen and examined. Objective - Vital Signs Vital signs: Vital Signs Temp 97 F L 01/21/22 08:55 Pulse 72 01/21/22 08:55 Resp 18 01/21/22 08:55 BP 145/74 01/21/22 08:55 Pulse Ox 99 01/21/22 08:55 Intake & Output 01/20/22 01/21/22 01/21/22 18:59 06:59 18:59 Intake Total 266.667 540 300 Balance 266.667 540 300 Intake: Intake, IV Titration 30.667 Amount Diltiazem 125 mg In 30.667 Sodium Chloride 0.9% 100 ml @ 5 MG/HR 5 mls/hr IV .Q24H [facility] Rx#:[id number] Oral 236 540 300 Other: Voiding Method Toilet Toilet # Voids 3 2 - Labs CBC & Chem 7: 01/20/22 02:39 01/20/22 02:39 Labs: Abnormal Lab Results - Last 24 Hours (Table) 01/20/22 Range/Units 16:33 POC Glucose (mg/dL) 108 H (75-99) mg/dL
[2022-01-21 12:22] VITALS: BP 136/85; PULSE 65
== END 2022-01-21 13:15 | disposition home or self-care (01) | DRG 310 ==
LOC: EC 01:42 → 3SCARD 03:29
PROVIDERS: ADMIT Family Medicine; ATTEND Family Medicine
DX: I48.19 Other persistent atrial fibrillation (principal); E11.22 Type 2 diabetes mellitus with diabetic chronic kidney disease; E78.5 Hyperlipidemia, unspecified; I25.10 Atherosclerotic heart disease of native coronary artery without angina pectoris; N18.30 Chronic kidney disease, stage 3 unspecified; F41.9 Anxiety disorder, unspecified; I12.9 Hypertensive chronic kidney disease with stage 1 through stage 4 chronic kidney disease, or unspecified chronic kidney disease; M10.9 Gout, unspecified; G43.909 Migraine, unspecified, not intractable, without status migrainosus; L30.9 Dermatitis, unspecified; Z79.01 Long term (current) use of anticoagulants; Z79.02 Long term (current) use of antithrombotics/antiplatelets; Z79.82 Long term (current) use of aspirin; Z79.84 Long term (current) use of oral hypoglycemic drugs; Z79.899 Other long term (current) drug therapy; Z87.891 Personal history of nicotine dependence; Z95.5 Presence of coronary angioplasty implant and graft; Z95.818 Presence of other cardiac implants and grafts; Z91.041 Radiographic dye allergy status; Z91.040 Latex allergy status; Z91.048 Other nonmedicinal substance allergy status; Z87.19 Personal history of other diseases of the digestive system
CPT/HCPCS: 36415; 71045; 80053; 80061; 83036; 83735; 84484; 85025; 85610; 85730; 93005; 93306; 94760; 96365; 96366; 99291

== ENCOUNTER → 2022-04-04 | Outpatient (CLI) | payer MEDICARE ==
--- NOTE | 2022-04-04 23:23 | CT ---
EXAMINATION TYPE: CT brain wo con DATE OF EXAM: 04/04/2022 HISTORY: hematoma CT DLP: 995.5 mGycm. Automated Exposure Control for Dose Reduction was Utilized. TECHNIQUE: CT scan of the head is performed without contrast. COMPARISON: None at this institution. FINDINGS: There is left-sided extra-axial fluid collection greater density than CSF less dense than a cute bleed measuring up to 12 mm in thickness axial image 39 consistent with subacute extra-axial hem atoma tapering subdural hematoma. There is slight midline shift 2 millimeters to the right axial imag e 27. There is mild to moderate diffuse ventricular and sulcal prominence consistent with diffuse age -related cerebral atrophy. There mild is low-attenuation in the periventricular white matter consist ent with chronic small vessel ischemic change. The globes are intact and the visualized sinuses are clear. IMPRESSION: There is small to moderate size subacute extra-axial favoring subdural hemorrhage with mi nimal midline shift. Correlation with recent outside CT would be beneficial given patient's history.
== END | disposition home or self-care (01) ==
LOC: RADCTMAIN 16:00
PROVIDERS: ATTEND Family Medicine
DX: I62.00 Nontraumatic subdural hemorrhage, unspecified (principal); G31.9 Degenerative disease of nervous system, unspecified
CPT/HCPCS: 70450

== ENCOUNTER → 2022-10-24 | Outpatient (CLI) | payer MEDICARE ==
[2022-10-24 10:57] LABS: ALT 7 U/L (10-49); AST 18 U/L (14-35); African American GFR (CKD) 80.1 (60.0-200.0); Albumin 4.3 g/dL (3.8-4.9); Albumin/Globulin Ratio 1.79 (1.60-3.17); Alkaline Phosphatase 42 U/L (41-126); BUN/Creat Ratio 13.64 Ratio (12.00-20.00); Calcium 9.9 mg/dL (8.7-10.3); Carbon Dioxide 27.3 mmol/L (20.0-27.5); Chloride 102 mmol/L (96-109); Chol/HDL Ratio 2.14 Ratio; Globulin 2.4 g/dL (1.6-3.3); Glucose 134 mg/dL (70-110); LDL Cholesterol,Calculated 47.1 mg/dL (0.0-131.0); Non-African American GFR(CKD) 69.1 (60.0-200.0); Potassium 5.9 mmol/L (3.5-5.5); Sodium 138 mmol/L (135-145); Total Protein 6.7 g/dL (6.2-8.2)
== END | disposition home or self-care (01) ==
LOC: LABWHC1 06:55
PROVIDERS: ATTEND Internal Medicine Endocrinology, Diabetes & Metabolism
DX: E11.65 Type 2 diabetes mellitus with hyperglycemia (principal)
CPT/HCPCS: 36415; 80053; 80061; 82043; 82570; 83036; 84443

== ENCOUNTER → 2022-10-28 | Outpatient (CLI) | payer MEDICARE ==
[2022-10-28 11:30] LABS: HCT 43.5 % (39.6-50.0); HGB 13.8 g/dL (13.0-17.0); MCH 28.6 pg (27.0-32.0); MCHC 31.7 g/dL (32.0-37.0); MCV 90.2 fL (80.0-97.0); Mean Platelet Volume 10.2 fL (9.5-12.2); NRBC Per 100 WBC 0 /100 WBCS (0.0-0.0); Platelet Count 131 X 10*3/uL (140-440); RBC 4.82 X 10*6/uL (4.40-5.60); RDW 15.1 % (11.5-14.5); WBC 6.27 X 10*3/uL (4.50-10.00)
[2022-10-28 11:47] LABS: African American GFR (CKD) 86.7 (60.0-200.0); Anion Gap 6.8 mmol/L (10.00-18.00); Blood Urea Nitrogen 17.6 mg/dL (9.0-27.0); Carbon Dioxide 28.7 mmol/L (20.0-27.5); Non-African American GFR(CKD) 74.8 (60.0-200.0); Potassium 5.3 mmol/L (3.5-5.5)
== END | disposition home or self-care (01) ==
LOC: LABPAT 06:59
PROVIDERS: ATTEND Internal Medicine Interventional Cardiology
DX: Z01.812 Encounter for preprocedural laboratory examination (principal); I25.10 Atherosclerotic heart disease of native coronary artery without angina pectoris
CPT/HCPCS: 80051; 82565; 84520; 85027

== ENCOUNTER 2022-10-31 10:09 | Day surgery (SDC) | payer MEDICARE ==
[2022-10-28 16:37] VITALS: BMI 34.4
[~2022-10-31 10:09] MED LIST changes: +ALPRAZolam 0.25 MG TAB PO PRN; +ALPRAZolam 0.5 MG TAB PO PRN; +ASPIRIN 325 MG TAB PO ONE; +ATORVASTATIN 80 MG TAB PO ONE; +HEPARIN SODIUM,PORCINE 10,000 UNIT in SODIUM CHLORIDE 0.9% 1,000 ML IRRIGATION PRN; +HEPARIN SODIUM,PORCINE 2,500 UNIT in SODIUM CHLORIDE 0.9% 250 ML IRRIGATION PRN; -LACTATED RINGERS 1,000 ML IV SCH; +NITROGLYCERIN SL TABS 0.4 MG TAB SUBLINGUAL PRN
[2022-10-31] MEDS: SODIUM CHLORIDE 0.9% 1,000 ML in EMPTY BAG 1 BAG IV SCH ×2 (11:26→16:52)
[2022-10-31 11:30] LABS: Glucose,Whole Blood 162 mg/dL (70-110)
[2022-10-31] MEDS ORDERED: VERAPAMIL 2.5 MG/ML 2 ML AMP ONE (12:29)
[2022-10-31] MEDS ORDERED: HEPARIN SODIUM 1,000 UN/ML (10ML VL) ONE (12:37)
[2022-10-31] MEDS ORDERED: MIDAZOLAM 2 MG/2 ML VIAL IV ONE ×3 (12:42→14:10)
[2022-10-31] MEDS ORDERED: LIDOCAINE 1% INJ 10MG/ML (5 ML VIAL-PF) SQ ONE (12:45)
[2022-10-31] MEDS ORDERED: VERAPAMIL SYRINGE (5 MG/10 ML) INTRAARTER ONE (12:47)
[2022-10-31] MEDS: HEPARIN SODIUM 1,000 UN/ML (10ML VL) IV ONE ×2 (13:07→13:40)
[2022-10-31] MEDS ORDERED: MORPHINE SULFATE 4 MG/ML SYRINGE ONE ×3 (14:11→16:07)
[2022-10-31] MEDS ORDERED: niCARdipine 25 MG/10 ML VIAL ONE (14:11)
[2022-10-31] MEDS ORDERED: SODIUM CHLORIDE 0.9% 500 ML 500 ML IV ONE (14:13)
[2022-10-31] MEDS ORDERED: SODIUM CHLORIDE 0.9% 1,000 ML IV ONE (14:13)
[2022-10-31] MEDS: MORPHINE SULFATE 4 MG/ML SYRINGE IV ONE ×2 (14:13→16:15)
[2022-10-31] MEDS ORDERED: IOPAMIDOL-370 125ML BTL INJ ONE (14:18)
[2022-10-31] MEDS ORDERED: hydrALAZINE HCL 20 MG/ML 1 ML VIAL ONE (14:19)
[2022-10-31] MEDS ORDERED: hydrALAZINE HCL 20 MG/ML 1 ML VIAL IV ONE (14:20)
[2022-10-31] MEDS ORDERED: MORPHINE SULFATE 4 MG/ML SYRINGE IV ONE (14:25)
[2022-10-31] MEDS ORDERED: CLOPIDOGREL 75 MG TAB ONE (14:40)
[2022-10-31] MEDS ORDERED: PIMECROLIMUS TOPICAL PRN (14:45)
[2022-10-31] MEDS ORDERED: tiZANidine 4 MG TAB PO PRN (14:45)
[2022-10-31] MEDS ORDERED: ALPRAZolam 0.25 MG TAB PO PRN (14:45)
[2022-10-31] MEDS ORDERED: ACETAMINOPHEN TAB 325 MG TAB PO PRN (14:45)
[2022-10-31] MEDS ORDERED: CLOTRIMAZOLE 1% CREAM 30 GM TUBE TOPICAL PRN (14:45)
[2022-10-31] MEDS ORDERED: BETAMETHASONE DIPROPIONATE 0.05% CREAM 15 GM TUBE TOPICAL PRN (14:45)
[2022-10-31] MEDS ORDERED: diphenhydrAMINE 25 MG CAP PO PRN (14:45)
[2022-10-31] MEDS ORDERED: LORATADINE 10 MG TAB PO PRN (14:45)
[2022-10-31] MEDS ORDERED: FLUTICASONE 50MCG/SPRAY NASAL 16GM EA NOSTRIL PRN (14:45)
[2022-10-31] MEDS ORDERED: MAG HYDROX/AL HYDROX/SIMETH 30 ML CUP PO PRN (14:46)
[2022-10-31] MEDS ORDERED: ATROPINE SULFATE 0.1 MG/ML 10ML SYRINGE IV PRN (14:46)
[2022-10-31] MEDS ORDERED: RX INFO: IV CONTRAST WAS GIVEN 1 EACH MISC MISCELLANE PRN (14:46)
[2022-10-31] MEDS ORDERED: ZOLPIDEM 5 MG TAB PO PRN (14:46)
[2022-10-31] MEDS ORDERED: NITROGLYCERIN SL TABS 0.4 MG TAB SUBLINGUAL PRN (14:46)
[2022-10-31] MEDS ORDERED: IOPAMIDOL-370 100ML BTL INJ ONE (14:51)
[2022-10-31] MEDS ORDERED: CLOPIDOGREL 75 MG TAB PO ONE (14:52)
--- NOTE | 2022-10-31 14:56 | P.PCN ---
Date of Procedure: 10/31/22 Operative Findings: CARDIAC CATHETERIZATION AND PERCUTANEOUS CORONARY INTERVENTION PERFORMING PHYSICIAN: Cosme Khalil MD, VI PROCEDURE PERFORMED: 1. Selective right and left coronary angiogram 2. Left heart catheterization 3. Successful stenting of mid RCA using 3.5 x 15 mm Xience SOFIA which with an excellent angiographic results with adjunctive use of an intervascular ultrasound 4. Atherectomy of the right coronary artery with adjunctive use of transvenous temporary pacemaker INDICATION: Unstable angina and 67-year-old gentleman who is known to have CAD with prior stenting of the LAD as well as hypertension and dyslipidemia and paroxysmal atrial fibrillation COMPLICATION: None APPROACH: Right radial artery and right common femoral vein LEVEL OF SEDATION: Moderate with the sedation time off 119 minutes PROCEDURE DESCRIPTION: After obtaining an informed consent the patient was brought to the cardiac labor relations director. The right radial artery was cannulated using micropuncture technique, the micropuncture wire passed easily then I placed a 6-Slovak sheath at the right radial artery. I did selective right and left coronary angiogram using JR4 and JL 3.5 catheters. Left heart catheterization was performed using the JL 3.5 catheter which across aortic valve then I did pulled back across the valve. After that I did intervene on the right coronary artery. The procedure was completed was no complication SELECTIVE CORONARY ANGIOGRAM: The right coronary artery: Large caliber vessel and a dominant vessel. The RCA is extremely calcified. The proximal RCA has an intermediate disease appeared to be in the range of 40- 50%. The mid RCA has a lesion appeared to be in the range of 70-80%. The RCA distally appeared to have mild disease only and bifurcates into PDA and PLV branches both appeared to be angiographically normal Left main: Is angiographically normal. Bifurcates into an LCx and LAD The left circumflex: Large caliber vessel non-dominant vessel. The proximal LCx has tight lesion appeared to be in the range of 70-80%. This is just proximal to the bifurcation of a moderate size OM1 which has a lesion appeared to be in the range of 60-70%. The distal circumflex appeared to have mild disease only. The circumflex distally gives rises into an OM to which appeared to have mild disease only. The left anterior descending artery: Large caliber vessel. The LAD appears to have mild in-stent restenosis. The LAD has a long segment of the stenting extent from the proximal all the way to distal portion. The LAD gives rises into a diagonal branch which has mild di sease in its ostium. HEMODYNAMICS: The LVDP was about 8 mmHg was no significant gradient across aortic valve PCI OF THE RCA: Anticoagulation was initiated using heparin with continuous ACT monitoring. Subsequently I did engage the right coronary artery using an AL 0.75 guiding catheter. Subsequently I did wire the right coronary artery using a run-through wire. After that I did intravascular ultrasound of the right coronary artery and that showed a diameter of the RCA between 3.5-4 mm was extremely calcified vessel with an angle of calcium about 180. After that I did balloon angioplasty of the right coronary artery using 3.5 mm regular balloon which was inflated under 18 vilma for 20 seconds but unfortunately the lesion did not open up with the balloon. At that point I decided to do shockwave balloon. Attempting advancing 3.5 x 15 mm shockwave balloon was unsuccessful in spite of using a yvonne wire with a whisper wire and in spite of using guide liner. Also I did advanced an Ironman wire and with that I was unable to get the shockwave balloon down there. I tried again to do balloon angioplasty using 3.5 mm and then a 3 mm noncompliant balloon but both balloons were not able to be advanced to the lesion. At that point I decided to do atherectomy. I did exchange my run-through wire into the atherectomy wire using a catheter. After that I did atherectomy of the right coronary artery using blunt high-speed. Before I did the atherectomy I did place a transvenous temporary pacemaker. The right common femoral vein was cannulated using micropuncture technique, the micropuncture wire passed easily then I placed a 6-Slovak sheath at the right common femoral vein. Under fluoroscopy guidance the temporary pacemaker was advanced to the right ventricle and it was set for a threshold of 5 and a backup heart rate of 60 beats per minutes. After the atherectomy was performed I did attempt balloon angioplasty again using the shockwave balloon but I was unable to deliver the balloon. Attempting advancing noncompliant balloon and also was unsuccessful. After that I was able to advance 3.5 x 12 mm regular balloon and I did balloon angioplasty of the midright coronary artery. After that I was able to deliver 3.5 x 15 mm stent where the stent was positioned under fluoroscopy guidance and deployed under 24 vilma for 20 seconds. The following angiogram showed excellent angiographic results and the procedure was completed was no complication CONCLUSION: 1. Critical disease involving the mid right coronary artery. I did perform successful stenting of the RCA with adjunctive use of atherectomy 2. Critical disease involving the proximal left circumflex 3. Mild in-stent restenosis of the LAD POSTPROCEDURE MANAGEMENT: #1 dual antiplatelet therapy using aspirin and Plavix for 12 month #2 aggressive cholesterol control #3 follow-up with the patient
[2022-10-31] MEDS ORDERED: SODIUM CHLORIDE 0.9% 1,000 ML in EMPTY BAG 1 BAG IV SCH (15:00)
[2022-10-31] MEDS ORDERED: MORPHINE SULFATE 2 MG/ML SYRINGE IVP STA (16:10)
[2022-10-31 17:08] LABS: Glucose,Whole Blood 151 mg/dL (70-110)
[2022-10-31] MEDS: carvediloL 12.5 MG TAB PO SCH (18:00)
[2022-10-31] MEDS: DOFETILIDE 125 MCG CAP PO SCH (18:00)
[2022-10-31 19:53] LABS: Glucose,Whole Blood 236 mg/dL (70-110)
[2022-10-31] MEDS: NAPROXEN 250 MG TAB PO SCH (20:00)
[2022-10-31] MEDS ORDERED: ATORVASTATIN 40 MG TAB PO SCH (21:00)
[2022-10-31] MEDS ORDERED: MAGNESIUM OXIDE 400 MG TAB PO SCH (21:00)
[2022-11-01] MEDS: SODIUM CHLORIDE 0.9% 1,000 ML in EMPTY BAG 1 BAG IV SCH ×2 (05:35→08:51)
[2022-11-01 06:03] LABS: Glucose,Whole Blood 135 mg/dL (70-110)
[2022-11-01] MEDS: DOFETILIDE 125 MCG CAP PO SCH (06:03)
[2022-11-01] MEDS: carvediloL 12.5 MG TAB PO SCH (06:03)
--- NOTE | 2022-11-01 08:54 | P.DS ---
Providers Attending physician: Cosme Khalil Consults: 10/31/22 14:46 Consult Physician Routine Consulting Provider: [facility] Consult Reason/Comments: Post Interventional patient Do you want consulting provider notified?: Already Contacted Primary care physician: [facility] Course: The patient is a pleasant 67-year-old gentleman with CAD and prior stenting of the LAD was seen in the office recently for chest discomfort concerning for angina. He underwent a heart catheterization yesterday and was found to have critical disease involving the RCA and LCx. He underwent successful stenting of the RCA with a very extensive and long and complex procedure with a good angiographic results and reduction of stenosis from 80% to 0%. He was seen this morning. He is asymptomatic. He is mechanically stable. He is going to be discharged on dual antiplatelet therapy along with beta yaneli and statin. I'll follow-up with the patient next week in the office Plan - Discharge Summary Discharge Rx Participant: Yes New Discharge Prescriptions: New Aspirin 81 mg PO DAILY #90 tab Clopidogrel [Plavix] 75 mg PO DAILY #90 tab Continue Tamsulosin [Flomax] 0.4 mg PO DAILY allopurinoL [Zyloprim] 300 mg PO DAILY ALPRAZolam [Xanax] 0.25 mg PO BID PRN PRN Reason: anxiety Dulaglutide [Trulicity] 4.5 mg SQ ADDISON Acetaminophen Tab [Tylenol] 650 mg PO BID PRN PRN Reason: Pain carvediloL [Coreg] 37.5 mg PO BID Fluticasone Nasal [place] [Flonase Nasal [place]] 1 spray EA NOSTRIL DAILY PRN PRN Reason: Allergy Symptoms tiZANidine [Zanaflex] 2 mg PO Q8HR PRN PRN Reason: Muscle Spasm Donepezil [Aricept] 5 mg PO DAILY Dofetilide [Tikosyn] 125 mcg PO BID Ketoconazole [Ketoconazole 2%] 1 applic TOPICAL BID PRN PRN Reason: Itching diphenhydrAMINE HCL [Benadryl] 25 mg PO HS PRN PRN Reason: Insomnia Pimecrolimus [Elidel] 1 applic TOPICAL BID PRN PRN Reason: Rash Atorvastatin Calcium [Lipitor] 40 mg PO HS Fluocinonide [Lidex 0.05%] 1 applic TOPICAL BID PRN PRN Reason: Rash Naproxen Sodium [Aleve] 220 mg PO BID Magnesium Citrate 200 mg PO BID Fexofenadine HCl [Cecilia Allergy] 60 mg PO DIRECTED PRN PRN Reason: Allergy Symptoms Discharge Medication List Tamsulosin [Flomax] 0.4 mg PO DAILY 03/10/19 [History] allopurinoL [Zyloprim] 300 mg PO DAILY 03/10/19 [History] ALPRAZolam [Xanax] 0.25 mg PO BID PRN 07/26/19 [History] Acetaminophen Tab [Tylenol] 650 mg PO BID PRN 01/20/22 [History] Atorvastatin Calcium [Lipitor] 40 mg PO HS 01/20/22 [History] Dulaglutide [Trulicity] 4.5 mg SQ ADDISON 01/20/22 [History] Fluocinonide [Lidex 0.05%] 1 applic TOPICAL BID PRN 01/20/22 [History] Fluticasone Nasal [place] [Flonase Nasal [place]] 1 spray EA NOSTRIL DAILY PRN 01/20/22 [History] Ketoconazole [Ketoconazole 2%] 1 applic TOPICAL BID PRN 01/20/22 [History] Pimecrolimus [Elidel] 1 applic TOPICAL BID PRN 01/20/22 [History] carvediloL [Coreg] 37.5 mg PO BID 01/20/22 [History] diphenhydrAMINE HCL [Benadryl] 25 mg PO HS PRN 01/20/22 [History] Dofetilide [Tikosyn] 125 mcg PO BID 10/28/22 [History] Donepezil [Aricept] 5 mg PO DAILY 10/28/22 [History] Fexofenadine HCl [Cecilia Allergy] 60 mg PO DIRECTED PRN 10/28/22 [History] Magnesium Citrate 200 mg PO BID 10/28/22 [History] Naproxen Sodium [Aleve] 220 mg PO BID 10/28/22 [History] tiZANidine [Zanaflex] 2 mg PO Q8HR PRN 10/28/22 [History] Aspirin 81 mg PO DAILY #90 tab 11/01/22 [Rx] Clopidogrel [Plavix] 75 mg PO DAILY #90 tab 11/01/22 [Rx] Follow up Appointment(s)/Referral(s): Cosme Khalil MD [STAFF PHYSICIAN] - 1 Week (APPOINTMENT MADE ON October @ 4:45PM ) Patient Instructions/Handouts: *[facility] - After Heart Catheterization - Hvac Engineer Instructions, Moderate Sedation (DC), After Radial Heart Catheterization (GEN) Activity/Diet/Wound Care/Special Instructions: *NO LIFTING, PUSHING, OR PULLING ANYTHING OVER 5 POUNDS FOR 5 DAYS *NO DRIVING FOR 3 DAYS *YOU CAN SHOWER TOMORROW BUT DO NOT SUBMERSE YOUR PUNCTURE SITE IN WATER FOR A FEW DAYS TO PREVENT INFECTION - SO NO TUB BATHS, POOLS HOT TUBS, DISHES...ETC *ANY SIGNS OF BLEEDING (HARDNESS, SWELLING, OR EXCESSIVE BRUISING) HOLD DIRECT PRESSURE ON YOUR PUNCTURE SITE AND COME TO THE NEAREST EMERGENCY ROOM TO GET YOUR PUNCTURE SITE LOOKED AT - DO NOT DRIVE YOURSELF! EITHER CALL EMS OR HAVE SOMEONE DRIVE YOU!
[2022-11-01 08:56] VITALS: BP 119/75; PULSE 80; RESP 18; TEMP 98.1
[2022-11-01] MEDS ORDERED: TAMSULOSIN 0.4 MG CAP.ER.24H PO SCH (09:00)
[2022-11-01] MEDS ORDERED: CLOPIDOGREL 75 MG TAB PO SCH (09:00)
[2022-11-01] MEDS ORDERED: allopurinoL 300 MG TAB PO SCH (09:00)
[2022-11-01] MEDS ORDERED: DONEPEZIL 5 MG TAB PO SCH (09:00)
[2022-11-01] MEDS: NAPROXEN 250 MG TAB PO SCH (09:01)
[2022-11-03] MEDS ORDERED: DULAGLUTIDE 4.5 MG/0.5 ML SQ SCH (09:00)
== END 2022-11-01 10:28 | disposition home or self-care (01) ==
LOC: CATHCVL 10:09 → 3SCARD 14:39 → CATHCVL 11-01 10:28
PROVIDERS: ATTEND Internal Medicine Interventional Cardiology
DX: I25.110 Atherosclerotic heart disease of native coronary artery with unstable angina pectoris (principal); I10 Essential (primary) hypertension; E78.5 Hyperlipidemia, unspecified; I48.0 Paroxysmal atrial fibrillation; Z95.5 Presence of coronary angioplasty implant and graft
CPT/HCPCS: 94760; 93458; C9602; C1769 ×8; C1887 ×3; C1894 ×2; C1725 ×4; C1753; C1724; C1874; C1761; J2250; J2270; J0360; J2001; J1644; Q9967 ×2

== ENCOUNTER 2022-11-26 10:51 | Day surgery (SDC) | payer MEDICARE ==
[2022-11-26 11:19] LABS: Glucose,Whole Blood 166 mg/dL (70-110)
[2022-11-26] MEDS: SODIUM CHLORIDE 0.9% 1,000 ML in EMPTY BAG 1 BAG IV SCH ×3 (11:19→20:32)
[2022-11-26 11:25] LABS: Basophils % (A) 0 %; Eosinophils # (A) 0.1 k/uL (0-0.7); Eosinophils % (A) 1 %; HCT 44.5 % (39.0-53.0); HGB 14.6 gm/dL (13.0-17.5); Lymphocytes # (A) 0.9 k/uL (1.0-4.8); Lymphocytes % (A) 7 %; MCH 29.7 pg (25.0-35.0); MCHC 32.8 g/dL (31.0-37.0); MCV 90.5 fL (80.0-100.0); Mean Platelet Volume 7.7; Monocytes # (A) 0.2 k/uL (0-1.0); Monocytes % (A) 2 %; Neutrophils % (A) 90 %; Platelet Count 145 k/uL (150-450); RBC 4.91 m/uL (4.30-5.90); RDW 14.1 % (11.5-15.5); WBC 12.3 k/uL (3.8-10.6)
[2022-11-26 11:43] LABS: African American GFR (CKD) >90 (>60 ml/min/1.73 sqM); Anion Gap 9 mmol/L; Blood Urea Nitrogen 22 mg/dL (9-20); Calcium 9.6 mg/dL (8.4-10.2); Carbon Dioxide 28 mmol/L (22-30); Chloride 100 mmol/L (98-107); Glucose 186 mg/dL (74-99); Non-African American GFR(CKD) >90 (>60 ml/min/1.73 sqM); Potassium 3.9 mmol/L (3.5-5.1); Sodium 137 mmol/L (137-145)
[2022-11-26] MEDS ORDERED: VERAPAMIL 2.5 MG/ML 2 ML AMP ONE (11:44)
[2022-11-26] MEDS ORDERED: HEPARIN SODIUM 1,000 UN/ML (10ML VL) ONE (12:11)
[2022-11-26] MEDS ORDERED: methylPREDNISolone SOD SUCCI 125 MG/2 ML VIAL ONE (12:13)
[2022-11-26] MEDS ORDERED: diphenhydrAMINE 50 MG/ML 1 ML VIAL ONE (12:14)
[2022-11-26] MEDS ORDERED: diphenhydrAMINE 50 MG/ML 1 ML VIAL IVP ONE ×2 (12:15)
[2022-11-26] MEDS ORDERED: MIDAZOLAM 2 MG/2 ML VIAL IVP ONE (12:15)
[2022-11-26] MEDS ORDERED: methylPREDNISolone SOD SUCCI 125 MG/2 ML VIAL IVP ONE (12:15)
[2022-11-26] MEDS ORDERED: LIDOCAINE 1% INJ 10MG/ML (5 ML VIAL-PF) SQ ONE (12:15)
[2022-11-26] MEDS ORDERED: VERAPAMIL SYRINGE (5 MG/10 ML) INTRAARTER ONE (12:16)
[2022-11-26] MEDS: HEPARIN SODIUM 1,000 UN/ML (10ML VL) IV ONE ×3 (12:18→13:07)
[2022-11-26] MEDS ORDERED: HYDROmorphone 1 MG/ML 1 ML SYRINGE IVP ONE (12:20)
[2022-11-26] MEDS ORDERED: niCARdipine 25 MG/10 ML VIAL ONE (12:25)
[2022-11-26] MEDS ORDERED: CLOPIDOGREL 75 MG TAB ONE (13:14)
[2022-11-26] MEDS ORDERED: tiZANidine 4 MG TAB PO PRN (13:15)
[2022-11-26] MEDS ORDERED: ALPRAZolam 0.25 MG TAB PO PRN (13:15)
[2022-11-26] MEDS ORDERED: ATROPINE SULFATE 0.1 MG/ML 10ML SYRINGE IV PRN (13:16)
[2022-11-26] MEDS ORDERED: NITROGLYCERIN SL TABS 0.4 MG TAB SUBLINGUAL PRN (13:16)
[2022-11-26] MEDS ORDERED: RX INFO: IV CONTRAST WAS GIVEN 1 EACH MISC MISCELLANE PRN (13:16)
[2022-11-26] MEDS ORDERED: CLOPIDOGREL 75 MG TAB PO ONE (13:16)
[2022-11-26] MEDS ORDERED: MAG HYDROX/AL HYDROX/SIMETH 30 ML CUP PO PRN (13:16)
[2022-11-26] MEDS ORDERED: ZOLPIDEM 5 MG TAB PO PRN (13:16)
[2022-11-26] MEDS ORDERED: IOPAMIDOL-370 125ML BTL INJ ONE (13:16)
--- NOTE | 2022-11-26 13:20 | P.PCN ---
Date of Procedure: 11/26/22 Operative Findings: PERCUTANEOUS CORONARY INTERVENTION Performing physician Cosme Khalil M.D. Procedure Performed: 1. Successful stenting of the proximal LCx using 3.25 x 15 mm Xience drug- eluting stent with an excellent angiographic results with adjunctive use of atherectomy and IVUS Indication: Severe CAD involving the proximal LCx in this gentleman who was experiencing symptoms of angina Approach: Right radial artery Complications: None Level of Sedation: Moderate with a sedation length of 60 minutes Procedure Discussion: After obtaining an informed consent the patient was brought to the cardiac general production laborer. The right radial artery was cannulated using micropuncture technique, the micropuncture wire passed easily then I placed a 6-[place] sheath. I gave the patient 2 mg of verapamil intra-arterial and heparin intravenous was given multiple doses with continuous ACT monitoring. Sequently I did engage the left main using JL 3.5 guiding catheter. I did wire the left circumflex using a whisper wire and subsequently a Viber wire. Subsequently the whisper wire was withdrawn out. We get atherectomy of the left circumflex using 2 runs at low speed. After that will angioplasty was performed using 3.0 mm balloon before I deployed 3.25 x 15 mm stent where the stent was positioned under fluoroscopy guidance and deployed under its nominal pressure. Postdilatation was performed using 3.5 mm balloon. Please note that we did perform intravascular ultrasound before we did balloon angioplasty to assess the diameter of the artery. The procedure was completed was no complication Postprocedure Management: 1. dual antiplatelet therapy using aspirin and Plavix for 12 month 2. aggressive cholesterol control 3. risk factors modification
[2022-11-26] MEDS ORDERED: SODIUM CHLORIDE 0.9% 1,000 ML in EMPTY BAG 1 BAG IV SCH (13:30)
[2022-11-26 17:04] LABS: Glucose,Whole Blood 325 mg/dL (70-110)
[2022-11-26 17:38] VITALS: RESP 16
[2022-11-26] MEDS: carvediloL 12.5 MG TAB PO SCH (18:02)
[2022-11-26] MEDS ORDERED: DEXTROSE 50% SYRINGE 50 ML IVP PRN ×2 (18:12)
[2022-11-26] MEDS ORDERED: INSULIN ASPART (NovoLOG) 100 UNIT/ML VIAL SQ ONE (18:30)
[2022-11-26 19:43] LABS: Glucose,Whole Blood 332 mg/dL (70-110)
[2022-11-26] MEDS: INSULIN ASPART (NovoLOG) 100 UNIT/ML VIAL SQ SCH (20:28)
[2022-11-26] MEDS: DOFETILIDE 125 MCG CAP PO SCH (20:28)
[2022-11-26] MEDS ORDERED: ATORVASTATIN 40 MG TAB PO SCH (21:00)
[2022-11-27 06:22] LABS: Glucose,Whole Blood 220 mg/dL (70-110)
[2022-11-27] MEDS: INSULIN ASPART (NovoLOG) 100 UNIT/ML VIAL SQ SCH (06:28)
[2022-11-27] MEDS: DOFETILIDE 125 MCG CAP PO SCH (08:04)
[2022-11-27] MEDS: carvediloL 12.5 MG TAB PO SCH (08:05)
[2022-11-27 08:34] VITALS: BP 137/67; PULSE 58; TEMP 98.2
[2022-11-27] MEDS ORDERED: CLOPIDOGREL 75 MG TAB PO SCH (09:00)
[2022-11-27] MEDS ORDERED: DONEPEZIL 5 MG TAB PO SCH (09:00)
[2022-11-27] MEDS ORDERED: TAMSULOSIN 0.4 MG CAP.ER.24H PO SCH (09:00)
[2022-11-27] MEDS ORDERED: LOSARTAN-HCTZ 50-12.5 MG 1 EACH TAB PO SCH (09:00)
[2022-11-27] MEDS ORDERED: allopurinoL 300 MG TAB PO SCH (09:00)
[2022-11-27 09:41] LABS: African American GFR (CKD) >90 (>60 ml/min/1.73 sqM); Non-African American GFR(CKD) 87 (>60 ml/min/1.73 sqM)
--- NOTE | 2022-11-27 10:40 | P.DS ---
Providers Attending physician: Cosme hKalil Consults: 11/26/22 13:16 Consult Physician Routine Consulting Provider: [facility] Consult Reason/Comments: Post Interventional patient Do you want consulting provider notified?: Already Contacted Primary care physician: Christopher [facility] Course: The patient is a pleasant 67-year-old gentleman who underwent yesterday successful PCI of the left circumflex coronary artery with adjunctive use of atherectomy. He was seen this morning. He is asymptomatic. He seemed to be stable. The site is soft and nontender was no bruises. The patient is going to be discharged home on dual antiplatelet therapy and statin and I'll follow-up with the patient next week in the office Plan - Discharge Summary Discharge Rx Participant: No New Discharge Prescriptions: New Aspirin 81 mg PO DAILY #90 tab Clopidogrel [Plavix] 75 mg PO DAILY #90 tablet Continue Tamsulosin [Flomax] 0.4 mg PO DAILY allopurinoL [Zyloprim] 300 mg PO DAILY ALPRAZolam [Xanax] 0.25 mg PO BID PRN PRN Reason: anxiety Dulaglutide [Trulicity] 4.5 mg SQ ADDISON carvediloL [Coreg] 37.5 mg PO BID tiZANidine [Zanaflex] 2 mg PO Q8HR PRN PRN Reason: Muscle Spasm Donepezil [Aricept] 5 mg PO DAILY Dofetilide [Tikosyn] 125 mcg PO BID Atorvastatin Calcium [Lipitor] 40 mg PO HS Losartan-Hctz 50-12.5 mg [Hyzaar 50-12.5] 1 tab PO DAILY Discharge Medication List Tamsulosin [Flomax] 0.4 mg PO DAILY 03/10/19 [History] allopurinoL [Zyloprim] 300 mg PO DAILY 03/10/19 [History] ALPRAZolam [Xanax] 0.25 mg PO BID PRN 07/26/19 [History] Atorvastatin Calcium [Lipitor] 40 mg PO HS 01/20/22 [History] Dulaglutide [Trulicity] 4.5 mg SQ ADDISON 01/20/22 [History] carvediloL [Coreg] 37.5 mg PO BID 01/20/22 [History] Dofetilide [Tikosyn] 125 mcg PO BID 10/28/22 [History] Donepezil [Aricept] 5 mg PO DAILY 10/28/22 [History] tiZANidine [Zanaflex] 2 mg PO Q8HR PRN 10/28/22 [History] Losartan-Hctz 50-12.5 mg [Hyzaar 50-12.5] 1 tab PO DAILY 11/21/22 [History] Aspirin 81 mg PO DAILY #90 tab 11/27/22 [Rx] Clopidogrel [Plavix] 75 mg PO DAILY #90 tablet 11/27/22 [Rx] Follow up Appointment(s)/Referral(s): Cosme Khalil MD [STAFF PHYSICIAN] - 1 Week (THE OFFICE WILL CALL YOU WITH AN APPOINTMENT DATE AND TIME ) Patient Instructions/Handouts: *[facility] - After Heart Catheterization - Barrel Drum Cutter Instructions, Moderate Sedation (DC) Activity/Diet/Wound Care/Special Instructions: *NO LIFTING, PUSHING, OR PULLING ANYTHING OVER 5 POUNDS FOR 5 DAYS *NO DRIVING FOR 3 DAYS *YOU CAN REMOVE YOUR DRESSING AND SHOWER TOMORROW BUT DO NOT SUBMERSE YOUR PUNCTURE SITE IN WATER FOR A FEW DAYS TO PREVENT INFECTION - SO NO TUB BATHS, POOLS, HOT TUBS, DISHES...ETC *ANY SIGNS OF BLEEDING (HARDNESS, SWELLING, OR EXCESSIVE BRUISING) HOLD DIRECT PRESSURE ON YOUR PUNCTURE SITE AND COME TO THE NEAREST EMERGENCY ROOM TO GET YOUR PUNCTURE SITE LOOKED AT - DO NOT DRIVE YOURSELF! EITHER CALL EMS OR HAVE SOMEONE DRIVE YOU!
[2022-11-27] MEDS ORDERED: ASPIRIN 81 MG PO STA (11:02)
[2022-11-27 11:44] VITALS: BMI 35.0
[2022-12-01] MEDS ORDERED: NON FORMULARY DRUG (Dulaglutide [Trulicity] 4.5 MG/0.5 ML Each) SQ SCH (13:15)
== END 2022-11-27 12:32 | disposition home or self-care (01) ==
LOC: CATHCVL 10:51 → 6NMEDSUR 13:12 → CATHCVL 11-27 12:32
PROVIDERS: ATTEND Internal Medicine Interventional Cardiology
DX: I25.119 Atherosclerotic heart disease of native coronary artery with unspecified angina pectoris (principal); Z95.5 Presence of coronary angioplasty implant and graft; I48.0 Paroxysmal atrial fibrillation; I10 Essential (primary) hypertension; I77.819 Aortic ectasia, unspecified site; E78.5 Hyperlipidemia, unspecified; Z87.19 Personal history of other diseases of the digestive system; Z87.820 Personal history of traumatic brain injury; Z95.818 Presence of other cardiac implants and grafts; E11.9 Type 2 diabetes mellitus without complications; Z82.49 Family history of ischemic heart disease and other diseases of the circulatory system; F17.210 Nicotine dependence, cigarettes, uncomplicated; Z79.4 Long term (current) use of insulin; Z79.82 Long term (current) use of aspirin; Z79.02 Long term (current) use of antithrombotics/antiplatelets; Z79.899 Other long term (current) drug therapy
CPT/HCPCS: 99152; 99153 ×3; 94760; 92978; 80048; 82565; 85025; 83036; C9602; C1769 ×4; C1887 ×2; C1725 ×3; C1753; C1724; C1874; J2250; J1200; J2930; J2001; J1644; J1170; Q9967

== ENCOUNTER → 2023-01-30 | Outpatient (CLI) | payer MEDICARE ==
[2023-01-30 11:30] LABS: ALT 16 U/L (10-49); AST 16 U/L (14-35); African American GFR (CKD) 89.9 (60.0-200.0); Albumin 4.2 g/dL (3.8-4.9); Albumin/Globulin Ratio 1.91 (1.60-3.17); Alkaline Phosphatase 50 U/L (41-126); Blood Urea Nitrogen 18.7 mg/dL (9.0-27.0); Carbon Dioxide 27.8 mmol/L (20.0-27.5); Chloride 102 mmol/L (96-109); Globulin 2.2 g/dL (1.6-3.3); Glucose 134 mg/dL (70-110); LDL Cholesterol,Calculated 38.4 mg/dL (0.0-131.0); Non-African American GFR(CKD) 77.5 (60.0-200.0); Potassium 4.1 mmol/L (3.5-5.5); Sodium 140 mmol/L (135-145); Total Protein 6.4 g/dL (6.2-8.2)
== END | disposition home or self-care (01) ==
LOC: LABWHC1 06:40
PROVIDERS: ATTEND Internal Medicine Endocrinology, Diabetes & Metabolism
DX: E11.65 Type 2 diabetes mellitus with hyperglycemia (principal)
CPT/HCPCS: 36415; 80053; 80061; 82043; 82570; 83036; 84443

== ENCOUNTER → 2023-03-19 | Outpatient (CLI) | payer MEDICARE ==
[2023-03-19 11:28] LABS: Basophils # (A) 0.09 X 10*3/uL (0.00-0.10); Basophils % (A) 1.5 %; Eosinophils # (A) 0.37 X 10*3/uL (0.04-0.35); Eosinophils % (A) 6.2 %; HCT 44.6 % (39.6-50.0); HGB 14.7 d/dL (12.0-15.0); Lymphocytes % (A) 25.3 %; MCH 29.1 pg (27.0-32.0); MCV 88.3 FL (80.0-97.0); Mean Platelet Volume 10.5 FL (9.5-12.2); Monocytes % (A) 8.4 %; NRBC Per 100 WBC 0 X 10*3/uL (0.00-0.01); Neutrophils # (A) 3.45 X 10*3/uL (1.80-7.70); Neutrophils % (A) 58.3 %; Platelet Count 135 X 10*3/uL (140-440); RBC 5.05 X 10*6/uL (4.40-5.60); RDW 14.7 % (11.5-14.5); WBC 5.93 X 10*3/uL (4.50-10.00)
[2023-03-19 16:12] LABS: ALT 14 U/L (10-49); AST 16 U/L (14-35); Albumin 4.5 d/dL (3.8-4.9); Alkaline Phosphatase 50 U/L (41-126); BUN/Creat Ratio 17.17 Ratio (12.00-20.00); Blood Urea Nitrogen 20.6 mg/dL (9.0-27.0); Calcium 10.4 mg/dL (8.7-10.3); Carbon Dioxide 27.2 mmol/L (21.6-31.8); Chloride 99 mmol/L (96-109); Chol/HDL Ratio 4.03 Ratio; Globulin 2.5 d/dL (1.6-3.3); Glucose 136 mg/dL (70-110); LDL Cholesterol,Calculated 136.3 mg/dL (0.0-131.0); Potassium 4.4 mmol/L (3.5-5.5); Sodium 137 mmol/L (135-145); T4, Free (Free Thyroxine) 1.83 ng/dL (0.80-1.80); Total Bilirubin 1.1 mg/dL (0.3-1.2)
== END | disposition home or self-care (01) ==
LOC: LABWHC1 06:39
PROVIDERS: ATTEND Family Medicine
DX: Z00.00 Encounter for general adult medical examination without abnormal findings (principal); Z12.5 Encounter for screening for malignant neoplasm of prostate; E11.22 Type 2 diabetes mellitus with diabetic chronic kidney disease; N18.9 Chronic kidney disease, unspecified; I25.10 Atherosclerotic heart disease of native coronary artery without angina pectoris; E78.2 Mixed hyperlipidemia
CPT/HCPCS: 36415; 80053; 80061; 83036; 84153; 84439; 84443; 85025

== ENCOUNTER → 2023-03-28 | Outpatient (CLI) | payer MEDICARE ==
[2023-03-28 16:23] LABS: T4, Free (Free Thyroxine) 1.86 ng/dL (0.80-1.80)
== END | disposition home or self-care (01) ==
LOC: LABWHC1 06:51
PROVIDERS: ATTEND Psychiatry & Neurology Neurology
DX: I69.911 Memory deficit following unspecified cerebrovascular disease (principal); E55.9 Vitamin D deficiency, unspecified
CPT/HCPCS: 36415; 82306; 82607; 84439; 84443; 84481

== ENCOUNTER → 2023-06-27 | Outpatient (CLI) | payer MEDICARE ==
[2023-06-27 10:47] LABS: Basophils # (A) 0.08 X 10*3/uL (0.00-0.10); Basophils % (A) 1.5 %; Eosinophils # (A) 0.26 X 10*3/uL (0.04-0.35); HCT 42.8 % (39.6-50.0); HGB 13.8 d/dL (13.0-17.0); Lymphocytes # (A) 1.45 X 10*3/uL (0.90-5.00); Lymphocytes % (A) 27.8 %; MCH 28.5 pg (27.0-32.0); MCHC 32.2 d/dL (32.0-37.0); MCV 88.2 FL (80.0-97.0); Mean Platelet Volume 10.6 FL (9.5-12.2); Monocytes % (A) 7.7 %; NRBC Per 100 WBC 0 X 10*3/uL (0.00-0.01); Neutrophils % (A) 57.6 %; Platelet Count 150 X 10*3/uL (140-440); RBC 4.85 X 10*6/uL (4.40-5.60); RDW 14.4 % (11.5-14.5); WBC 5.21 X 10*3/uL (4.50-10.00)
[2023-06-27 11:13] LABS: ALT 17 U/L (10-49); AST 15 U/L (14-35); Albumin 4.3 d/dL (3.8-4.9); Albumin/Globulin Ratio 2.05 Ratio (1.60-3.17); Alkaline Phosphatase 53 U/L (41-126); BUN/Creat Ratio 15.36 Ratio (12.00-20.00); Blood Urea Nitrogen 16.9 mg/dL (9.0-27.0); Calcium 9.7 mg/dL (8.7-10.3); Carbon Dioxide 27.2 mmol/L (21.6-31.8); Chloride 105 mmol/L (96-109); Chol/HDL Ratio 2.23 Ratio; Globulin 2.1 d/dL (1.6-3.3); Glucose 143 mg/dL (70-110); LDL Cholesterol,Calculated 50.9 mg/dL (0.0-131.0); Potassium 4.9 mmol/L (3.5-5.5); Sodium 140 mmol/L (135-145); T4, Free (Free Thyroxine) 1.52 ng/dL (0.80-1.80); Total Bilirubin 0.7 mg/dL (0.3-1.2); Total Protein 6.4 d/dL (6.2-8.2); Uric Acid 5.1 mg/dL (3.7-8.7); VLDL Calculation 13.58 mg/dL (5.00-40.00)
== END | disposition home or self-care (01) ==
LOC: LABWHC1 06:46
PROVIDERS: ATTEND Family Medicine
DX: E11.69 Type 2 diabetes mellitus with other specified complication (principal)
CPT/HCPCS: 36415; 80053; 80061; 83036; 84153; 84439; 84443; 84550; 85025; 86803

== ENCOUNTER → 2023-08-04 | Outpatient (CLI) | payer MEDICARE ==
[2023-08-04 11:38] LABS: ALT 11 U/L (10-49); AST 15 U/L (14-35); Albumin 4.1 d/dL (3.8-4.9); Albumin/Globulin Ratio 2.05 Ratio (1.60-3.17); Alkaline Phosphatase 44 U/L (41-126); BUN/Creat Ratio 15.91 Ratio (12.00-20.00); Blood Urea Nitrogen 17.5 mg/dL (9.0-27.0); Calcium 9.6 mg/dL (8.7-10.3); Carbon Dioxide 25.8 mmol/L (21.6-31.8); Chloride 100 mmol/L (96-109); Chol/HDL Ratio 3.25 Ratio; Glucose 132 mg/dL (70-110); Potassium 4.7 mmol/L (3.5-5.5); Sodium 137 mmol/L (135-145); Total Bilirubin 0.7 mg/dL (0.3-1.2); Total Protein 6.1 d/dL (6.2-8.2); Uric Acid 5.2 mg/dL (3.7-8.7)
== END | disposition home or self-care (01) ==
LOC: LABWHC1 06:44
PROVIDERS: ATTEND Internal Medicine Endocrinology, Diabetes & Metabolism
DX: E11.65 Type 2 diabetes mellitus with hyperglycemia (principal); M10.079 Idiopathic gout, unspecified ankle and foot
CPT/HCPCS: 36415; 80053; 80061; 82043; 82570; 84443; 84550

== ENCOUNTER → 2023-09-19 | Outpatient (CLI) | payer MEDICARE ==
--- NOTE | 2023-09-19 12:09 | US ---
EXAMINATION TYPE: US Aorta Screening DATE OF EXAM: 09/19/2023 COMPARISON: NONE CLINICAL INDICATION: Male, 68 years old with history of Z13.6 ENCOUNTER FOR SCREENING FOR CARDIOVASCU LAR D; Pt states AAA screening TECHNIQUE: Multiple sonographic images of the abdominal aorta are obtained. FINDINGS: EXAM MEASUREMENTS: Abdominal Aorta: Proximal: 2.5 x 2.8 cm Mid: 2.2 x 2.3 cm Distal: 2.3 x 2.0 cm Bifurcation: Right Iliac: 1.4 x 1.4 cm Left Iliac: 1.5 x 1.4 cm STRIPPER PRELIMINARY NOTES: Atherosclerotic vaughn, aorta measuring upper limits of normal without measuring >3cm at any level IMPRESSION: Mild atherosclerotic changes throughout. The proximal abdominal aorta is ectatic at 2.8 cm. The left common iliac artery is borderline ectatic at 1.5 cm. No evidence for AAA.
== END | disposition home or self-care (01) ==
LOC: RADUSWWP 07:31
PROVIDERS: ATTEND Family Medicine
DX: Z13.6 Encounter for screening for cardiovascular disorders (principal); I77.811 Abdominal aortic ectasia
CPT/HCPCS: 76706

== ENCOUNTER → 2023-10-31 | Outpatient (CLI) | payer MEDICARE ==
[2023-10-31 10:24] LABS: AST 22 U/L (17-59); African American GFR (CKD) >90 (>60 ml/min/1.73 sqM); Albumin 3.8 g/dL (3.5-5.0); Albumin/Globulin Ratio 1.4; Blood Urea Nitrogen 21 mg/dL (9-20); Carbon Dioxide 23 mmol/L (22-30); Globulin 2.7 g/dL; Glucose 157 mg/dL (74-99); Non-African American GFR(CKD) 78 (>60 ml/min/1.73 sqM); Total Bilirubin 0.7 mg/dL (0.2-1.3); Total Protein 6.5 g/dL (6.3-8.2)
[2023-10-31 10:26] LABS: ALT 16 U/L (4-49); Alkaline Phosphatase 53 U/L (38-126); Anion Gap 8 mmol/L; Calcium 9.3 mg/dL (8.4-10.2); Chloride 107 mmol/L (98-107); Potassium 4.5 mmol/L (3.5-5.1); Sodium 138 mmol/L (137-145); Uric Acid 5.7 mg/dL (3.5-8.5)
[2023-10-31 12:06] LABS: BUN/Creat Ratio 17.64 Ratio (12.00-20.00); Chol/HDL Ratio 1.98 Ratio
[2023-10-31 12:09] LABS: LDL Cholesterol,Calculated 33.9 mg/dL (0.0-131.0); VLDL Calculation 15.56 mg/dL (5.00-40.00)
== END | disposition home or self-care (01) ==
LOC: LABWHC1 06:48
PROVIDERS: ATTEND Internal Medicine Endocrinology, Diabetes & Metabolism
DX: E11.65 Type 2 diabetes mellitus with hyperglycemia (principal); M10.079 Idiopathic gout, unspecified ankle and foot
CPT/HCPCS: 36415; 80053; 80061; 82043; 82570; 84443; 84550

== ENCOUNTER 2024-01-15 13:10 | Day surgery (SDC) | payer MEDICARE ==
--- NOTE | 2024-01-15 12:20 | P.GSHP ---
History of Present Illness H&P Date: 01/15/24 CHIEF COMPLAINT: GERD and colon screen HISTORY OF PRESENT ILLNESS: The patient is a 68-year-old male who presents with gastroesophageal reflux disease and need for colon screen. Upper and lower endoscopy were offered for further evaluation and management. PAST MEDICAL HISTORY: Please see list. PAST SURGICAL HISTORY: Please see list. MEDICATIONS: Please see list. ALLERGIES: Please see list. SOCIAL HISTORY: No illicit drug use FAMILY HISTORY: No reports of Crohn disease or ulcerative colitis. REVIEW OF ORGAN SYSTEMS: CONSTITUTIONAL: No reports of fevers or chills. GI: Denies any blood in stools or constipation. PHYSICAL EXAM: VITAL SIGNS: Stable GENERAL: Well-developed pleasant in no acute distress. HEENT: No scleral icterus. Extraocular movements grossly intact. Moist buccal mucosa. NECK: Supple without lymphadenopathy. CHEST: Unlabored respirations. Equal bilateral excursions. CARDIOVASCULAR: Regular rate and rhythm. Distal 2+ pulses. ABDOMEN: Soft, nondistended. MUSCULOSKELETAL: No clubbing, cyanosis, or edema. ASSESSMENT: 1. Gastroesophageal reflux disease 2. Colon screen. PLAN: 1. Recommend proceeding with an upper and lower endoscopy Past Medical History Past Medical History: Atrial Fibrillation, Coronary Artery Disease (CAD), Chest Pain / Angina, CVA/TIA, Diabetes Mellitus, GI Bleed, Hyperlipidemia, Hypertension, Renal Disease, Skin Disorder, Sleep Apnea/CPAP/BIPAP Additional Past Medical History / Comment(s): occular migraines, gout, eczema, dx with stage III kidney failure, tinnitus, fungal infection in groin area, pt refusing pictures ,tia ,has cpap but can't use machine. subdural hematoma from xaralto, polyp colon, History of Any Multi-Drug Resistant Organisms: None Reported Past Surgical History: Heart Catheterization With Stent, Orthopedic Surgery, Tonsillectomy Additional Past Surgical History / Comment(s): five cardiac stents, rt foot bunionectomy, rt knee arthroscopy, uvppp,acl tear rt knee, medial meniscus tear to rt knee vasectomy Past Anesthesia/Blood Transfusion Reactions: No Reported Reaction, Motion Sickness Date of Last Stent Placement:: 2005,2017,2018 Smoking Status: Former smoker - Past Family History Mother Family Medical History: Unable to Obtain Father Family Medical History: Cancer, Coronary Artery Disease (CAD) Medications and Allergies Home Medications Medication Instructions Recorded Confirmed Type Tamsulosin [Flomax] 0.4 mg PO DAILY 03/10/19 01/13/24 History ALPRAZolam [Xanax] 0.25 mg PO BID PRN 07/26/19 01/13/24 History Atorvastatin Calcium [Lipitor] 40 mg PO 1900 01/20/22 01/13/24 History Dulaglutide [Trulicity] 4.5 mg SQ ADDISON 01/20/22 01/13/24 History carvediloL [Coreg] 37.5 mg PO BID 01/20/22 01/13/24 History Dofetilide [Tikosyn] 125 mcg PO BID 10/28/22 01/13/24 History Donepezil [Aricept] 5 mg PO DAILY 10/28/22 01/13/24 History tiZANidine [Zanaflex] 2 mg PO Q8HR PRN 10/28/22 01/13/24 History Losartan [Cozaar] 50 mg PO 1900 01/13/24 01/13/24 History Allergies Allergy/AdvReac Type Severity Reaction Status Date / Time adhesive tape Allergy rash/red Verified 01/13/24 11:02 skin Iodinated Contrast Media Allergy Rash/Hives Verified 01/13/24 11:02 [Iodinated Contrast- Oral and IV Dye] latex Allergy red skin Verified 01/13/24 11:02 seasonal Allergy Itching Uncoded 01/13/24 11:02
[2024-01-15] MEDS: LACTATED RINGERS 1,000 ML IV ONE (13:49)
[2024-01-15 14:00] LABS: Glucose,Whole Blood 111 mg/dL (70-110)
[2024-01-15] MEDS ORDERED: LIDOCAINE 1% INJ 10MG/ML (20 ML MDV) ONE (14:13)
[2024-01-15] MEDS ORDERED: PROPOFOL 10 MG/ML 20 ML VIAL IV ONE (14:13)
[2024-01-15 14:21] VITALS: TEMP 97.5
--- NOTE | 2024-01-15 14:28 | P.PCN ---
Date of Procedure: 01/15/24 Description of Procedure: PREOPERATIVE DIAGNOSIS: Gastrointestinal bleed POSTOPERATIVE DIAGNOSIS: Duodenal diverticulum Gastritis OPERATION: Esophagogastroduodenoscopy with biopsies along esophagus, antrum and duodenum SURGEON: Gloria Madrid MD ANESTHESIA: MAC. INDICATIONS: The patient is a 68-year-old male who presents with gastrointestinal bleed. Benefits and risks of the procedure were described. Informed consent was obtained. DESCRIPTION: The patient was brought into the endoscopy suite and laid in the left lateral decubitus position. An Olympus gastroscope was passed along the posterior oropharynx down to the distal esophagus where the squamocolumnar junction was encountered at 39 cm from the incisors. The stomach was entered and no bile reflux was found. Additional findings are listed below. Biopsies with cold forceps were obtained of the antrum. The first through third portion of the duodenum was examined. Retroflexion of the scope confirmed Hill grade 1 lower esophageal valve. The squamocolumnar junction demonstrated LA grade A erosive esophagitis. The stomach was desufflated. The patient tolerated the procedure well. FINDINGS: Squamocolumnar junction 39 cm from the incisors. Diaphragmatic hiatus at 39 cm. Duodenal diverticulum, 1 cm, second portion Hill grade 1 lower esophageal valve. LA grade A erosive esophagitis. Biopsies obtained Biopsies obtained of the duodenum. Chronic gastritis with biopsies obtained. RECOMMENDATIONS: Upper endoscopy as needed. With patient duodenal diverticulum, has risk of bleeding
--- NOTE | 2024-01-15 15:14 | P.PCN ---
Date of Procedure: 01/15/24 Description of Procedure: PREOPERATIVE DIAGNOSIS: Gastrointestinal bleeding POSTOPERATIVE DIAGNOSIS: Tubular adenoma transverse colon Sigmoid diverticulosis Pandiverticulosis Internal hemorrhoids, grade 2 Ascending colitis with bleeding OPERATION: Colonoscopy to the ileocecal valve and appendiceal orifice, cecum Colonoscopy with hot snare polypectomy Colonoscopy with cold forceps biopsy SURGEON: Gloria Madrid MD. ANESTHESIA: MAC. INDICATIONS: The patient is an 68-year-old male who presents with GI bleed. Benefits and risks were described and informed consent was obtained. DESCRIPTION OF PROCEDURE: The patient had undergone GoLytely prep. The patient had been brought into the operating room and laid in the left lateral decubitus position. After adequate intravenous sedation, the rectum was examined with 2% lidocaine jelly. The prostate was unremarkable. External hemorrhoids were encountered. The rectal tone was within normal limits. No lesions were palpated in the rectal vault. An Olympus colonoscope was advanced until the cecum, ileocecal valve and appendiceal orifice were clearly viewed. The prep was fair. Sigmoid diverticulosis was encountered. Colonic polyps were found and removed. Retroflexion of the scope demonstrated grade 2 internal hemorrhoids without active bleeding or inflammation. The colon was desufflated. The patient had tolerated the procedure well. Withdrawal time was over 6 minutes. FINDINGS: Aronchick preparation quality scale 3 (1-5) Internal hemorrhoids, grade 3 External hemorrhoids, grade 3. No arteriovenous malformations. Sigmoid diverticulosis Pandiverticulosis Ascending colitis of the colon with bleeding, biopsies obtained Removal of 2 polyps: - Snare polypectomy x 2 at mid transverse colon, 5 to 7 mm tubulovillous adenoma RECOMMENDATIONS: Given severity of tubular adenomas, recommend repeat colonoscopy 3 years, 2026 Patient has elevated risk of bleeding due to diverticulosis if placed on blood thinner Plan - Discharge Summary Discharge Rx Participant: No New Discharge Prescriptions: Continue Tamsulosin [Flomax] 0.4 mg PO DAILY ALPRAZolam [Xanax] 0.25 mg PO BID PRN PRN Reason: anxiety Dulaglutide [Trulicity] 4.5 mg SQ ADDISON carvediloL [Coreg] 37.5 mg PO BID tiZANidine [Zanaflex] 2 mg PO Q8HR PRN PRN Reason: Muscle Spasm Donepezil [Aricept] 5 mg PO DAILY Dofetilide [Tikosyn] 125 mcg PO BID Losartan [Cozaar] 50 mg PO 1900 Atorvastatin Calcium [Lipitor] 40 mg PO 1900 Discharge Medication List Tamsulosin [Flomax] 0.4 mg PO DAILY 03/10/19 [History] ALPRAZolam [Xanax] 0.25 mg PO BID PRN 07/26/19 [History] Atorvastatin Calcium [Lipitor] 40 mg PO 1900 01/20/22 [History] Dulaglutide [Trulicity] 4.5 mg SQ ADDISON 01/20/22 [History] carvediloL [Coreg] 37.5 mg PO BID 01/20/22 [History] Dofetilide [Tikosyn] 125 mcg PO BID 10/28/22 [History] Donepezil [Aricept] 5 mg PO DAILY 10/28/22 [History] tiZANidine [Zanaflex] 2 mg PO Q8HR PRN 10/28/22 [History] Losartan [Cozaar] 50 mg PO 1900 01/13/24 [History] Follow up Appointment(s)/Referral(s): Gloria Madrid MD [STAFF PHYSICIAN] - 02/03/24 9:45 am Patient Instructions/Handouts: *[facility] - (Anesthesia) Discharge Instructions Outpatient Surgery, Diverticulosis Diet (GEN), Diverticulosis (DC), Colorectal Polyps (GEN), Colitis (ED) Activity/Diet/Wound Care/Special Instructions: Repeat colonoscopy 3 years, 2026 Discharge Disposition: HOME SELF-CARE
[2024-01-15 15:41] VITALS: BP 125/71; PULSE 67; RESP 16
== END 2024-01-15 15:51 | disposition home or self-care (01) ==
LOC: ORWHC2ENDO 13:10
PROVIDERS: ATTEND Surgery Plastic and Reconstructive Surgery
DX: D12.3 Benign neoplasm of transverse colon (principal); K64.2 Third degree hemorrhoids; K29.50 Unspecified chronic gastritis without bleeding; K21.00 Gastro-esophageal reflux disease with esophagitis, without bleeding; K57.30 Diverticulosis of large intestine without perforation or abscess without bleeding; K64.1 Second degree hemorrhoids; K52.89 Other specified noninfective gastroenteritis and colitis; I12.9 Hypertensive chronic kidney disease with stage 1 through stage 4 chronic kidney disease, or unspecified chronic kidney disease; I48.91 Unspecified atrial fibrillation; E11.22 Type 2 diabetes mellitus with diabetic chronic kidney disease; I25.10 Atherosclerotic heart disease of native coronary artery without angina pectoris; E78.5 Hyperlipidemia, unspecified; G47.33 Obstructive sleep apnea (adult) (pediatric); Z86.73 Personal history of transient ischemic attack (TIA), and cerebral infarction without residual deficits; Z90.89 Acquired absence of other organs; Z95.5 Presence of coronary angioplasty implant and graft; Z87.891 Personal history of nicotine dependence; Z82.49 Family history of ischemic heart disease and other diseases of the circulatory system; Z91.041 Radiographic dye allergy status; Z91.040 Latex allergy status; Z79.899 Other long term (current) drug therapy
CPT/HCPCS: 88305; 45380; 45385; 43239; J2001; J2704

== ENCOUNTER → 2024-03-04 | Outpatient (CLI) | payer MEDICARE ==
[2024-03-04 15:14] LABS: ALT 20 U/L (10-49); AST 22 U/L (14-35); Albumin 4.3 g/dL (3.8-4.9); Albumin/Globulin Ratio 2.26 Ratio (1.60-3.17); Alkaline Phosphatase 48 U/L (41-126); BUN/Creat Ratio 15.22 Ratio (12.00-20.00); Blood Urea Nitrogen 13.7 mg/dL (9.0-27.0); Calcium 8.9 mg/dL (8.7-10.3); Carbon Dioxide 26.4 mmol/L (21.6-31.8); Chloride 101 mmol/L (96-109); Chol/HDL Ratio 1.81 Ratio; Globulin 1.9 g/dL (1.6-3.3); Glucose 140 mg/dL (70-110); LDL Cholesterol,Calculated 28.9 mg/dL (0.0-131.0); Potassium 4.7 mmol/L (3.5-5.5); Sodium 138 mmol/L (135-145); Total Bilirubin 1.2 mg/dL (0.3-1.2); Total Protein 6.2 g/dL (6.2-8.2); VLDL Calculation 18.62 mg/dL (5.00-40.00)
== END | disposition home or self-care (01) ==
LOC: LABWHC1 06:50
PROVIDERS: ATTEND Internal Medicine Endocrinology, Diabetes & Metabolism
DX: E11.65 Type 2 diabetes mellitus with hyperglycemia (principal)
CPT/HCPCS: 36415; 80053; 80061; 82043; 82570; 83036; 84443

== ENCOUNTER → 2024-06-10 | Outpatient (CLI) | payer MEDICARE ==
--- NOTE | 2024-06-10 11:11 | US ---
EXAMINATION TYPE: US abdomen complete DATE OF EXAM: 06/10/2024 COMPARISON: NONE CLINICAL INDICATION: Male, 69 years old with history of R10.11 RUQ PAIN; Intermittent RUQ pain x many months TECHNIQUE: Multiple sonographic images of the abdomen are obtained. FINDINGS: EXAM MEASUREMENTS: Liver Length: 19.8 cm Gallbladder Wall: 0.2 cm CBD: 0.4 cm Spleen: 10.8 cm Right Kidney: 9.9 x 5.4 x 4.5 cm Left Kidney: 10.9 x 5.1 x 6.2 cm Pancreas: obscured by overlying midline bowel gas Liver: enlarged, attenuating, heterogeneous, limited by overlying bowel gas Gallbladder: wnl Evidence for sonographic Becerra's sign: no CBD: visualized portion wnl, limited by overlying bowel gas Spleen: wnl Right Kidney: wnl Left Kidney: wnl Upper IVC: wnl Abd Aorta: proximal portion obscured by overlying midline bowel gas, mid and distal portions appear wnl IMPRESSION: 1. Hepatomegaly at 20.0 cm. Limited detailed assessment due to body habitus and bowel gas. 2. No gallstones or biliary ductal dilatation.
== END | disposition home or self-care (01) ==
LOC: RADUSWWP 06-09 11:20
PROVIDERS: ATTEND Family Medicine
DX: R10.11 Right upper quadrant pain (principal); R14.3 Flatulence; R16.0 Hepatomegaly, not elsewhere classified
CPT/HCPCS: 76700

== ENCOUNTER → 2024-10-28 | Outpatient (CLI) | payer MEDICARE ==
[2024-10-28 19:20] LABS: ALT 38 U/L (10-49); AST 28 U/L (14-35); Albumin 4.3 g/dL (3.8-4.9); Albumin/Globulin Ratio 1.72 Ratio (1.60-3.17); Alkaline Phosphatase 52 U/L (41-126); Blood Urea Nitrogen 17.8 mg/dL (9.0-27.0); Calcium 9.8 mg/dL (8.7-10.3); Carbon Dioxide 28.3 mmol/L (21.6-31.8); Chloride 101 mmol/L (96-109); Globulin 2.5 g/dL (1.6-3.3); Glucose 125 mg/dL (70-110); Potassium 4.4 mmol/L (3.5-5.5); Sodium 139 mmol/L (135-145); Total Bilirubin 0.6 mg/dL (0.3-1.2); Total Protein 6.8 g/dL (6.2-8.2)
[2024-10-28 19:43] LABS: Basophils # (A) 0.06 X 10*3/uL (0.00-0.10); Basophils % (A) 0.8 %; Eosinophils # (A) 0.46 X 10*3/uL (0.04-0.35); Eosinophils % (A) 6.4 %; HCT 45.9 % (39.6-50.0); HGB 14.8 g/dL (13.0-17.0); Lymphocytes # (A) 2.19 X 10*3/uL (0.90-5.00); Lymphocytes % (A) 30.2 %; MCH 27.6 pg (27.0-32.0); MCHC 32.2 g/dL (32.0-37.0); MCV 85.5 FL (80.0-97.0); Mean Platelet Volume 10.8 FL (9.5-12.2); Monocytes # (A) 0.55 X 10*3/uL (0.20-1.00); Monocytes % (A) 7.6 %; NRBC Per 100 WBC 0 X 10*3/uL (0.00-0.01); Neutrophils # (A) 3.96 X 10*3/uL (1.80-7.70); Neutrophils % (A) 54.7 %; Platelet Count 155 X 10*3/uL (140-440); RBC 5.37 X 10*6/uL (4.40-5.60); WBC 7.24 X 10*3/uL (4.50-10.00)
== END | disposition home or self-care (01) ==
LOC: LABWHC1 15:17
PROVIDERS: ATTEND Internal Medicine Gastroenterology
DX: K76.0 Fatty (change of) liver, not elsewhere classified (principal); K92.1 Melena
CPT/HCPCS: 36415; 80053; 85025

== ENCOUNTER 2025-02-03 18:42 | Emergency (ER) | payer MEDICARE ==
[2025-02-03 18:52] VITALS: RESP 18
[2025-02-03 19:27] LABS: Appearance,Urine Cloudy (Clear); Bilirubin,Urine Negative (Negative); Blood,Urine Large (Negative); Color,Urine Light Red; Glucose,Urine (UA) Negative (Negative); Ketones,Urine Negative (Negative); Leukocyte Esterase,Urine Negative (Negative); Mucus,Urine Rare /hpf; Nitrite,Urine Negative (Negative); Protein,Urine 1+ (Negative); RBC,Urine >182 /hpf (0-5); Urobilinogen,Urine <2.0 mg/dL (<2.0); WBC,Urine 14 /hpf (0-5)
--- NOTE | 2025-02-03 19:42 | ED ---
General Adult HPI - General Chief complaint: Urogenital Stated complaint: Urogenital Time Seen by Provider: 02/03/25 19:22 Source: patient, RN notes reviewed, old records reviewed Mode of arrival: ambulatory Limitations: no limitations - History of Present Illness Initial comments: 69-year-old male presenting for evaluation of hematuria. Patient has had 24- hour history of hematuria including passing some blood clots. Denies pain. Denies urinary frequency or urgency. Denies flank pain. Denies fever. Denies nausea vomiting. Patient states he takes aspirin but no other blood thinners. - Related Data Home Medications Medication Instructions Recorded Confirmed Tamsulosin [Flomax] 0.4 mg PO DAILY 03/10/19 01/15/24 ALPRAZolam [Xanax] 0.25 mg PO BID PRN 07/26/19 01/15/24 Atorvastatin Calcium [Lipitor] 40 mg PO 1900 01/20/22 01/15/24 Dulaglutide [Trulicity] 4.5 mg SQ ADDISON 01/20/22 01/15/24 carvediloL [Coreg] 37.5 mg PO BID 01/20/22 01/15/24 Dofetilide [Tikosyn] 125 mcg PO BID 10/28/22 01/15/24 Donepezil [Aricept] 5 mg PO DAILY 10/28/22 01/15/24 tiZANidine [Zanaflex] 2 mg PO Q8HR PRN 10/28/22 01/15/24 Losartan [Cozaar] 50 mg PO 1900 01/13/24 01/15/24 Allergies Allergy/AdvReac Type Severity Reaction Status Date / Time adhesive tape Allergy rash/red Verified 02/03/25 18:51 skin Iodinated Contrast Media Allergy Rash/Hives Verified 02/03/25 18:51 [Iodinated Contrast- Oral and IV Dye] latex Allergy red skin Verified 02/03/25 18:51 seasonal Allergy Itching Uncoded 02/03/25 18:51 Review of Systems ROS Statement: Those systems with pertinent positive or pertinent negative responses have been documented in the HPI. ROS Other: All systems not noted in ROS Statement are negative. Past Medical History Past Medical History: Atrial Fibrillation, Coronary Artery Disease (CAD), Chest Pain / Angina, CVA/TIA, Diabetes Mellitus, GI Bleed, Hyperlipidemia, Hypertension, Renal Disease, Skin Disorder, Sleep Apnea/CPAP/BIPAP Additional Past Medical History / Comment(s): occular migraines, gout, eczema, dx with stage III kidney failure, tinnitus, fungal infection in groin area, pt refusing pictures ,tia ,has cpap but can't use machine. subdural hematoma from [place], polyp colon, History of Any Multi-Drug Resistant Organisms: None Reported Past Surgical History: Heart Catheterization With Stent, Orthopedic Surgery, Tonsillectomy Additional Past Surgical History / Comment(s): five cardiac stents, rt foot bunionectomy, rt knee arthroscopy, uvppp,acl tear rt knee, medial meniscus tear to rt knee vasectomy Past Anesthesia/Blood Transfusion Reactions: No Reported Reaction, Motion Sickness Date of Last Stent Placement:: 2005,2017,2018 Past Psychological History: Anxiety Smoking Status: Former smoker Past Alcohol Use History: Rare Past Drug Use History: None Reported - Past Family History Mother Family Medical History: Unable to Obtain Father Family Medical History: Cancer, Coronary Artery Disease (CAD) General Exam Limitations: no limitations General appearance: alert, in no apparent distress Head exam: Present: atraumatic, normocephalic Eye exam: Present: normal appearance, PERRL Neck exam: Present: normal inspection. Absent: tenderness, meningismus Respiratory exam: Present: normal lung sounds bilaterally. Absent: respiratory distress, wheezes Cardiovascular Exam: Present: regular rate, normal rhythm GI/Abdominal exam: Present: soft. Absent: distended, tenderness, guarding Extremities exam: Present: normal inspection, normal capillary refill. Absent: pedal edema, calf tenderness Back exam: Absent: CVA tenderness (R), CVA tenderness (L) Neurological exam: Present: alert, oriented X3, CN II-XII intact. Absent: motor sensory deficit Psychiatric exam: Present: normal affect, normal mood Skin exam: Present: warm, dry, intact. Absent: cyanosis, diaphoretic Course Vital Signs 02/03/25 18:49 Temperature 98.5 F Pulse Rate 57 L Respiratory 18 Rate Blood Pressure 183/82 O2 Sat by Pulse 97 Oximetry Medical Decision Making - Medical Decision Making Was pt. sent in by a medical professional or institution (, PA, BEEF SELECTOR, urgent care, hospital, or longterm...) When possible be specific @ -No Did you speak to anyone other than the patient for history (EMS, parent, family, police, friend...)? What history was obtained from this source @ -No Did you review nursing and triage notes (agree or disagree)? Why? @ -I reviewed and agree with nursing and triage notes Were old charts reviewed (outside hosp., previous admission, EMS record, old EKG, old radiological studies, urgent care reports/EKG's, longterm records)? Report findings @ -No old charts were reviewed Differential Diagnosis: Hemorrhagic cystitis, renal stone, renal cyst, renal cell carcinoma, bladder CA EKG interpreted by me (3pts min.). @ -As above X-rays interpreted by me (1pt min.). @ -None done CT interpreted by me (1pt min.). @ -CT abdomen pelvis shows several nonobstructing renal calculi, no acute process. U/S interpreted by me (1pt. min.). @ -None done What testing was considered but not performed or refused? (CT, X-rays, U/S, labs)? Why? @ -None What meds were considered but not given or refused? Why? @ -None Did you discuss the management of the patient with other professionals (professionals i.e. , PA, BEEF SELECTOR, lab, RT, psych nurse, public health social worker, confectionery cooker, teacher, alumni relations officer, catalytic case operator)? Give summary @ -No Was smoking cessation discussed for >3mins.? @ -No Was critical care preformed (if so, how long)? @ -No Were there social determinants of health that impacted care today? How? (Ho melessness, low income, unemployed, alcoholism, drug addiction, transportation, low edu. Level, literacy, decrease access to med. care, [place] [facility], rehab)? @ -No Was there de-escalation of care discussed even if they declined (Discuss DNR or withdrawal of care, Hospice)? DNR status @ -No What co-morbidities impacted this encounter? (DM, HTN, Smoking, COPD, CAD, Cancer, CVA, ARF, Chemo, Hep., AIDS, mental health diagnosis, sleep apnea, morbid obesity)? @ -Hypertension diabetes Was patient admitted / discharged? Hospital course, mention meds given and route, prescriptions, significant lab abnormalities, going to OR and other pertinent info. @ -69-year-old male presenting with hematuria. Patient well-appearing with stable vitals. No flank pain. No vomiting. Urinalysis is light red with no c oncurrent signs of infection. CT of the abdomen pelvis is performed showing several nonobstructing renal calculi, no other acute process. Undiagnosed new problem with uncertain prognosis? @ -No Drug Therapy requiring intensive monitoring for toxicity (Heparin, Nitro, Insulin, Cardizem)? @ -No Were any procedures done? @ -No Diagnosis/symptom? @ -Hematuria Acute, or Chronic, or Acute on Chronic? @ -acute Uncomplicated (without systemic symptoms) or Complicated (systemic symptoms)? @ -Default Side effects of treatment? @ -No Exacerbation, Progression, or Severe Exacerbation? @ -No Poses a threat to life or bodily function? How? (Chest pain, [place], [place], pneumonia, PE, COPD, DKA, ARF, appy, cholecystitis, CVA, Diverticulitis, Homicidal, Suicidal, threat to staff... and all critical care pts) @ -No - Lab Data Lab Results 02/03/25 Range/Units 19:09 Urine Color Light Red Urine Appearance Cloudy (Clear) Urine pH 7.0 (5.0-8.0) Ur Specific [place] 1.020 (1.001-1.035) Urine Protein 1+ H (Negative) Urine Glucose (UA) Negative (Negative) Urine Ketones Negative (Negative) Urine Blood Large H (Negative) Urine Nitrite Negative (Negative) Urine Bilirubin Negative (Negative) Urine Urobilinogen <2.0 (<2.0) mg/dL Ur Leukocyte Esterase Negative (Negative) Urine RBC >182 H (0-5) /hpf Urine WBC 14 H (0-5) /hpf Urine Mucus Rare H (None) /hpf Disposition Clinical Impression: Gross hematuria Disposition: HOME SELF-CARE Condition: Fair Instructions (If sedation given, give patient instructions): Hematuria (ED) Is patient prescribed a controlled substance at d/c from ED?: No Referrals: Porfirio Orlando MD [Primary Care Provider] - 1-2 days Cameron Schaefer MD [STAFF PHYSICIAN] - 1-2 days Time of Disposition: 20:51
--- NOTE | 2025-02-03 20:49 | CT ---
EXAMINATION TYPE: CT abdomen pelvis wo con DATE OF EXAM: 02/03/2025 7:46 PM COMPARISON: None. CLINICAL INDICATION: Male, 69 years old with history of hematuria, hematuria x 3 days TECHNIQUE: Axial images were obtained from above the diaphragm to the pubic rami in the axial plane a t 5 mm thick sections. Reconstructed images are reviewed on the computer in the coronal plane. CONTRAST: mL of . Study performed without Oral Contrast DLP: 1374 mGycm, Automated exposure control for dose reduction was used. FINDINGS: Limited CT sections are obtained the lung bases. The lung bases are clear. Moderate to severe coron edilma artery calcification. CT ABDOMEN: Liver: Normal Spleen: Normal Pancreas: Normal Adrenal glands: The adrenal glands are normal. Gallbladder: Normal Kidneys: No masses are evident. No hydronephrosis is present. No cysts are present. There is a 0.4 cm nonobstructing renal stone superior pole left kidney there is a 0.5 cm nonobstructing renal stone posterior mid right kidney punctate nonobstructing renal stones in the lateral left kidney punctate calcifications at the inferior pole left kidney Aorta: Vascular calcification is within the aorta. Inferior vena cava: Normal. CT PELVIS: Scattered diverticuli within the transverse colon. Descending colon diverticuli are present. Abundant diverticuli within the sigmoid colon. No adjacent inflammatory changes to suggest acute diverticulit is. This study is without oral contrast limiting evaluation Appendix: Normal as visualized. Urinary bladder: Normal. Genitourinary structures: Prostate is somewhat prominent Osseous structures: No suspicious lytic or sclerotic lesions. IMPRESSION: 1. Scattered bilateral nonobstructing renal stones. 2. Diverticulosis without acute diverticulitis. [facility], , 02/03/2025 8:47 PM
[2025-02-03 21:12] VITALS: BP 137/87; PULSE 56; TEMP 98.1
== END 2025-02-03 21:15 | disposition home or self-care (01) ==
LOC: EC 18:42
DX: R31.0 Gross hematuria (principal); I13.10 Hypertensive heart and chronic kidney disease without heart failure, with stage 1 through stage 4 chronic kidney disease, or unspecified chronic kidney disease; I25.10 Atherosclerotic heart disease of native coronary artery without angina pectoris; E11.22 Type 2 diabetes mellitus with diabetic chronic kidney disease; N18.9 Chronic kidney disease, unspecified; Z87.891 Personal history of nicotine dependence; Z79.82 Long term (current) use of aspirin; Z91.040 Latex allergy status; Z91.041 Radiographic dye allergy status; Z91.048 Other nonmedicinal substance allergy status
CPT/HCPCS: 74176; 81001; 87086; 99284

== ENCOUNTER → 2025-02-15 | Outpatient (CLI) | payer MEDICARE ==
[2025-02-15 13:52] LABS: African American GFR (CKD) >90 (>60 ml/min/1.73 sqM); Blood Urea Nitrogen 22 mg/dL (9-20); Non-African American GFR(CKD) 81 (>60 ml/min/1.73 sqM)
--- NOTE | 2025-02-15 14:37 | CT ---
EXAMINATION TYPE: CT abdomen w con DATE OF EXAM: 02/15/2025 COMPARISON: 11/05/2024 CLINICAL INDICATION: Male, 69 years old with history of R31.0 GROSS HEMATURIA; PHH, Gross hematuria. Compare to scan from 02/03 TECHNIQUE: Performed with Oral Contrast and with IV Contrast, patient injected with 100 ml mL of Isovue 300. CT DLP: 1498.[address] CTDI: mGy Automated exposure control for dose reduction was used. FINDINGS: The lung bases are clear. The gallbladder is normal without distention, wall thickening, pericholecystic fluid or gallstones. T here is no biliary ductal dilatation. There is no focal mass or organomegaly involving the liver, pancreas, spleen or adrenal glands. There is a single nonobstructing 4.5 mm right renal calculus. There is a single nonobstructing 3.5 mm left upper pole renal calculus. The additional small punctate calcifications in the mid and lower po le left kidney identified on the current study. The caliber the abdominal aorta is normal is no retroperitoneal adenopathy or hemorrhage. The bowel loops are normal in caliber and there is no evidence of dilatation or obstruction. No infla mmatory changes are identified in the bowel wall or mesentery. There is no free intraperitoneal air or fluid.. The osseous structures and soft tissues are intact. IMPRESSION: Nonobstructing nephrocalcinosis as described above. No acute changes within the abdomen. [facility], , 02/15/2025 2:35 PM
== END | disposition home or self-care (01) ==
LOC: RADCTMAIN 12:49
PROVIDERS: ATTEND Urology
DX: R31.0 Gross hematuria (principal); N29 Other disorders of kidney and ureter in diseases classified elsewhere; E83.59 Other disorders of calcium metabolism
CPT/HCPCS: 82565; 84520; 74160; 36415; Q9967

== ENCOUNTER → 2025-04-20 | Outpatient (CLI) | payer MEDICARE ==
--- NOTE | 2025-04-21 06:25 | MR ---
EXAMINATION TYPE: MR shoulder LT wo con DATE OF EXAM: 04/20/2025 6:04 PM COMPARISON: None. CLINICAL INDICATION: Male, 70 years old with history of M75.42,M25.312,M19.012,M25.512, Left shoulder pain and difficult to raise x4 years IV Contrast: cc (None if empty) TECHNIQUE: Multiplanar, multisequence imaging of the left shoulder is performed without contrast. FINDINGS: Rotator Cuff: Intact infraspinatus tendon. Full-thickness retracted tear of the supraspinatus tendon. Intact subscapularis tendon. Minimal atrophy of the supraspinatus muscle bulk. Acromioclavicular Joint: Moderate layering with mild capsular hypertrophy and spurring. A type II yesenia nsloping acromion noted. Glenohumeral Joint: Small sized joint effusion. No significant spurring. Labrum: The labrum appears grossly intact given limitation of non-arthrogram study. Biceps Tendon: The long head of biceps is in normal location within bicipital groove. Bone marrow signal: No focal abnormal marrow signal is appreciated. Other: No additional significant abnormality is appreciated. IMPRESSION: 1. Full-thickness retracted tear of the supraspinatus tendon. 2. There is a type II downsloping acromion. [facility], , 04/21/2025 6:22 AM
== END | disposition home or self-care (01) ==
LOC: RADMRIMAIN 16:57
PROVIDERS: ATTEND Orthopaedic Surgery
DX: M75.102 Unspecified rotator cuff tear or rupture of left shoulder, not specified as traumatic (principal); M75.42 Impingement syndrome of left shoulder; M25.312 Other instability, left shoulder; M19.012 Primary osteoarthritis, left shoulder